=== PATIENT | male | born 1970 | race Caucasian/White ===

== ENCOUNTER 2021-11-10 01:19 | Inpatient (IN) | payer MEDICARE, MEDICAID, SELFPAY ==
[2021-11-10] VITALS (17 sets, daily range): BP systolic 83–103; BP diastolic 49–66; PULSE 83–140; RESP 16–20; TEMP 36.7–38.9; O2SAT 95–98; BMI 19.8
--- NOTE | ~2021-11-10 | XR_ITS ---
EXAMINATION: XR CHEST CLINICAL INFORMATION: Fever COMPARISON: None TECHNIQUE: Frontal view of the chest was obtained. FINDINGS: Lung volumes are symmetric. No focal consolidation is seen. No evidence of pneumothorax, pleural effusion, or pulmonary edema. The cardiomediastinal contour is unremarkable. No acute osseous findings are seen. XR/XR chest 1V IMPRESSION: No acute cardiopulmonary findings.
--- NOTE | ~2021-11-10 | CT_ITS ---
EXAMINATION: CT ABDOMEN AND PELVIS WITH CONTRAST CLINICAL INFORMATION: Diffuse abdominal pain with history of Crohn's disease COMPARISON: None TECHNIQUE: Multidetector volumetric images were obtained from the superior aspect of the liver through the pubic symphysis following administration 85 mL of Omnipaque 350 intravenous contrast. Sagittal and coronal reformatted images were obtained on the technologist's workstation. Oral contrast: No This CT examination was performed using dose optimization techniques as appropriate, variously including the following: *Automated exposure control *Adjustment of mA and/or kV according to patient size (this includes techniques or standardized protocols for targeted exams where dose is matched to indication/reason for exam; i.e. extremities or head) *Use of iterative reconstruction technique DLP: 410 mGy-cm FINDINGS: LUNG BASES: The visualized lung bases are unremarkable. LIVER, GALLBLADDER, AND BILIARY TREE: The liver is normal in size, shape, and attenuation. A small focal region of hypoattenuation adjacent to the falciform ligament could be due to focal fatty infiltration or alterations in hepatic perfusion. No biliary ductal dilatation is present. The gallbladder is unremarkable with no evidence of radiopaque gallstones, gallbladder wall thickening, or obvious pericholecystic inflammatory changes. PANCREAS: There are 2 adjacent calcifications in the region of the pancreatic head, each measuring 2 mm. These lie near the pancreatic duct though do not definitively appear intraductal. The pancreatic duct is mildly dilated to 3-4 mm. SPLEEN: Unremarkable. ADRENAL GLANDS: Unremarkable. KIDNEYS AND URETERS: No hydronephrosis or obstructing calculus bilaterally. Bilateral nephrograms are symmetric. There is a mid right renal calculus measuring 5 mm. Exophytic right renal cyst measures up to approximately 3.8 cm; no follow-up recommended. BLADDER: Mildly distended and grossly unremarkable. GASTROINTESTINAL TRACT: Patient appears to be status post right hemicolectomy. There is a thick-walled appearance of multiple loops of distal small bowel, suspicious for inflammation as sequelae of Crohn's disease given the clinical history. Some of the distal small bowel loops are also fluid-filled, and the possibility of a partial obstruction due to stricturing cannot be entirely excluded. No free air or free fluid is seen. ABDOMINAL WALL: No significant hernia is appreciated. LYMPH NODES: Normal. VASCULAR: Scattered atherosclerotic calcifications are present. PELVIC VISCERA: Unremarkable. OSSEOUS STRUCTURES: Status post left total hip arthroplasty. There is disc space narrowing at L5-S1. CT/CT abdomen pelvis w con IMPRESSION: 1. Thick-walled appearance of multiple distal small bowel loops, suspicious for inflammation as sequelae of Crohn's disease. Some of these distal small bowel loops are distended with fluid, raising the possibility of a partial small bowel obstruction secondary to stricturing. 2. Tiny calcifications in the proximal pancreas, near the pancreatic duct. Pancreatic duct is noted to be mildly dilated. Further assessment could be performed with MRI/MRCP or ERCP. Fleischner guidelines were followed.
--- NOTE | ~2021-11-10 | CT_ITS ---
EXAMINATION: CT ABDOMEN AND PELVIS WITH CONTRAST CLINICAL INFORMATION: Reevaluate Crohn's disease and small bowel obstruction. COMPARISON: Previous CT of the abdomen and pelvis 11/10/2021 TECHNIQUE: Multidetector volumetric images were obtained from the superior aspect of the liver through the pubic symphysis following administration 85 mL of Omnipaque 350 intravenous contrast. Sagittal and coronal reformatted images were obtained on the technologist's workstation. Oral contrast: Yes This CT examination was performed using dose optimization techniques as appropriate, variously including the following: *Automated exposure control *Adjustment of mA and/or kV according to patient size (this includes techniques or standardized protocols for targeted exams where dose is matched to indication/reason for exam; i.e. extremities or head) *Use of iterative reconstruction technique DLP: 532 mGy-cm FINDINGS: LUNG BASES: Small bilateral pleural effusions and bilateral lower lobe atelectasis increased from previous exam. LIVER, GALLBLADDER, AND BILIARY TREE: The liver is normal in size, shape, and attenuation. No focal hepatic lesion or biliary ductal dilatation is present. The gallbladder is contracted. PANCREAS: 2 small calcifications near the head of the pancreas appear unchanged. Pancreas is otherwise unremarkable. SPLEEN: Unremarkable. ADRENAL GLANDS: Unremarkable. KIDNEYS AND URETERS: There is a 4 cm cyst in the lower pole the right kidney. No imaging follow-up is indicated. Kidneys are otherwise unremarkable. The previously identified right renal Central stone is no longer seen. BLADDER: Unremarkable. GASTROINTESTINAL TRACT: There may be postsurgical changes to the right colon. There is a long segment of thick-walled small bowel with stranding of the mesenteric fat and prominent vasa recta suggestive of active inflammatory bowel disease. There is dilatation of the more proximal small bowel suggestive of partial small bowel obstruction. This is similar to 11/10/2021 exam.. There is oral contrast seen in the colon and there is no evidence of complete small bowel obstruction. The appendix is not seen. The stomach is unremarkable. There is a small amount of fluid in the pelvis. ABDOMINAL WALL: No significant hernia is appreciated. LYMPH NODES: Normal. VASCULAR: Unremarkable. PELVIC VISCERA: Unremarkable. OSSEOUS STRUCTURES: There is a left hip replacement. There are degenerative disc disease at L5-S1. CT/CT abdomen pelvis w con IMPRESSION: Long segment of thick-walled distal small bowel with prominent vasa recta and some stranding and fluid in the small bowel mesentery suggestive of active Crohn's disease. There is dilatation of the more proximal small bowel suggestive of mild partial small bowel obstruction. This is similar to 11/10/2021 exam. No evidence of complete obstruction with oral contrast seen in the colon. Small amount of fluid in the pelvis. Right renal cyst. Previously identified central right renal stone no longer seen. Fleischner guidelines were followed.
--- NOTE | ~2021-11-10 | NM_ITS ---
EXAMINATION: NM TC RBC GI BLEEDING CLINICAL INFORMATION: Acute rectal bleeding. COMPARISON: No previous radionuclide bleeding study is available for comparison. CT scan of the abdomen and pelvis dated 11/15/2021 is available for comparison. PROCEDURE: Following the sequential intravenous administration of 2.8 mL stannous pyrophosphate and 25 mCi Tc-99m pertechnetate, sequential static images of the abdomen were obtained using a gamma scintillation camera total observation period of 60 minutes. FINDINGS: There is visualization of abnormal activity beginning at approximately 20 minutes post injection in the right upper quadrant of the abdomen. This is likely in the hepatic flexure of the large bowel and corresponds well to this location on the CT scan dated 11/15/2021. The activity is immediately adjacent to the inferior pole of the right kidney. Some fairly rapid retrograde and antegrade flow is noted with some activity moving inferiorly to the cecal region and antegrade to the transverse colon into the left colon and rectosigmoid colon. It is unlikely that these additional foci represent additional bleeding sites. NM/NM GI bleeding IMPRESSION: Gastrointestinal bleeding is visualized originating in the hepatic flexure of the large bowel as described above.
--- NOTE | ~2021-11-10 | IR_ITS ---
PROCEDURE: IR PERIPHERALLY INSERTED CENTRAL CATHETER (PICC) PLACEMENT REFERRING PROVIDER: Puja Medel PROCEDURAL PERSONNEL: Attending Physician(s): Guy Marshall MD Resident Physician(s): None Advanced Practice Provider(s): None PREPROCEDURE DIAGNOSIS: Crohn's disease POSTPROCEDURE DIAGNOSIS: Same INDICATION: Administration of total parenteral nutrition ADDITIONAL CLINICAL HISTORY: None COMPLICATIONS: No immediate complications. IR/IR cvc insert peripheral IMPRESSION: Insertion of right-sided dual-lumen power-injectable PICC, with tip in the expected location of the cavoatrial junction. PLAN: The catheter may be used immediately. PROCEDURE SUMMARY: - Venous access with ultrasound guidance - PICC insertion with fluoroscopic guidance - Additional procedure(s): None PROCEDURE DETAILS: PREPROCEDURE: Consent: Informed consent for the procedure including risks, benefits and alternatives was obtained and time out was performed prior to the procedure. Preparation (MIPS): The site was prepared and draped using all elements of maximal sterile barrier technique including sterile gloves, sterile gown, cap, mask, large sterile sheet, sterile ultrasound probe cover, hand hygiene and cutaneous antisepsis with 2% chlorhexidine. Medical reason for site preparation exception (MIPS): Not applicable ANESTHESIA/SEDATION: Level of anesthesia/sedation: No sedation Anesthesia/sedation administered by: Not applicable Total intra-service sedation time (minutes): 0 Initially we have been consulted for repositioning of a right R knee midline for a PICC line. While prepping the site, the midline became completely displaced. We then proceeded with new PICC access. ACCESS: Local anesthesia was administered. The vessel was sonographically evaluated and determined to be patent. Real time ultrasound was used to visualize needle entry into the vessel and a permanent image was stored. Vein accessed: Brachial vein Access technique: Micropuncture set with 21 gauge needle Access attempts: 1 The guidewire was removed in its entirety, visually inspected and determined to be intact. CATHETER PLACEMENT: The catheter was trimmed to appropriate length and placed into the vein under fluoroscopic guidance via a peel-away sheath. Catheter tip location was fluoroscopically verified and a permanent image was stored. A sterile dressing was applied. Catheter placed: BioFlo PICC Catheter size (Malian): 6 Catheter intravascular length (cm): 40 Catheter flush: Normal saline Catheter securement technique: Stat-Lock CONTRAST: Contrast agent: None Contrast volume (mL): 0 RADIATION DOSE: Fluoroscopy time (minutes): 2.2 Images: 1 Kerma area product (cGy-m2): 83 ADDITIONAL DETAILS: Additional description of procedure: None Equipment details: None Specimens removed: None Estimated blood loss (mL): Less than 10 Standardized report: [id number] ATTESTATION: Signer name: Guy Marshall I attest that I was present for the entire procedure. I reviewed the stored images and agree with the report as written.
--- NOTE | 2021-11-10 01:42 | ED.ABDPAIN ---
HPI - Abdominal Pain General Chief Complaint: Failure to Thrive Stated Complaint: septic? Time Seen by Provider: 11/10/21 01:40 Source: patient Mode of arrival: EMS Limitations: no limitations History of Present Illness HPI narrative: Patient 51 years old with history of Crohn's disease MRSA infection in the past not taking any medication came here for 2 1/2months of water diarrhea diffuse abdominal pain weakness poor oral intake lost about 30 lb, noticed fever since yesterday with chills , has not seen any physician for some time when EMS arrived to his house patient home situation was unkept looks like he did not get up from a recliner for some time patient has not left his house for last 2 months Related Data Allergies Allergy/AdvReac Type Severity Reaction Status Date / Time NSAIDS (Non-Steroidal Allergy Intermediate DIARRHEA Verified 11/10/21 06:12 Anti-Inflamma [NSAIDS (NON-STEROIDAL ANTI-INFLAMMA] Review of Systems Review of Systems Yes all other systems are reviewed and are negative [facility] Social History Social History Alcohol intake: former Patient Tobacco Use Status: Current everyday Tobacco user Use of substances other than those prescribed or required for medical reasons: No Advance Directives: No Physical Exam ED Vital Signs: Vital Signs - 24 hr 11/10/21 01:37 11/10/21 01:51 11/10/21 02:36 Temperature 101.5 F H Pulse Rate 130 H 132 H 110 H Respiratory Rate 20 20 18 Blood Pressure 90/59 L 90/61 92/56 L Pulse Oximetry 95 95 11/10/21 03:06 11/10/21 04:00 11/10/21 04:28 Temperature 99.2 F Pulse Rate 96 Respiratory Rate 18 Blood Pressure 97/66 Pulse Oximetry 97 96 11/10/21 05:44 Temperature 98.0 F Pulse Rate 90 Respiratory Rate 16 Blood Pressure 91/54 L Pulse Oximetry 95 BMI result Body Mass Index 19.8 Appearance: Alert. Oriented X3. No acute distress. Thin emaciated unkept febrile to touch Eyes: No pallor or icterus ENT: Pharynx normal. Oral Mucosa moist Neck: Normal inspection. Neck supple. CVS: Normal heart rate and rhythm. Pulses normal. Respiratory: No respiratory distress. Equal air entry bilateral, no wheezing/rales/rhonchi Abdomen: Soft and nontender. Bowel sounds are present, no mass palpable, no CVA tenderness Skin: Skin warm and dry. Normal skin color. Normal skin turgor. Small superficial abscess right gluteal area with pus discharge and left chest wall Extremities: No lower extremity edema. No calf tenderness Neuro: Oriented X 3. No motor deficit. MDM - Abdominal Pain MDM Narrative Medical decision making narrative: Patient with Crohn disease with chronic diarrhea weight loss noticed to had temperature of 101.5 degrees on arrival workup showed diffuse colitis/Crohn disease changes with leukocytosis meeting the criteria for sepsis , lactic acid level was normal patient received IV antibiotics and IV fluid 30 cc/kilogram blood pressure improved after IV fluids, will admit patient for further evaluation Lab Data Attestation: I reviewed the patient's lab results. Result diagrams: 11/10/21 01:57 11/10/21 02:44 Labs: Lab Results 11/10/21 11/10/21 11/10/21 Range/Units 01:57 01:57 01:57 WBC 14.6 H (4.8-10.8) X10*3/uL RBC 4.95 (4.60-5.80) X10*6/uL Hgb 13.8 L (14.0-18.0) g/dl Hct 40.4 L (42.0-52.0) % MCV 81.6 (80.0-98.0) fL MCH 27.9 (27.0-33.0) pg MCHC 34.2 (31.0-36.0) g/dl RDW 14.6 (11.0-16.0) % Plt Count 388 (160-400) X10*3/uL MPV 8.7 L (9.4-12.4) fL Immature Gran % (Auto) 1.1 H (0.0-0.4) % Neut % (Auto) 84.6 H (45-73) % Lymph % (Auto) 8.2 L (20-40) % [place] % (Auto) 6.0 (2-11) % Eos % (Auto) 0.0 (0-4) % Baso % (Auto) 0.1 (0-2) % Lymph # (Auto) 1.2 (1.2-4.9) X10*3/uL [place] # (Auto) 0.9 (0.1-1.2) X10*3/uL Eos # (Auto) 0.0 (0.0-0.4) X10*3/uL Baso # (Auto) 0.0 (0.0-0.2) X10*3/uL Abs Immat Gran (auto) 0.16 H (0.00-0.03) X10*3/uL Absolute Neuts (auto) 12.3 H (2.0-8.3) x10*3/uL Absolute Nucleated RBC 0.000 (0.0-0.012) X10*3/uL Nucleated RBC % (auto) 0.0 (0.0-0.2) /100WBC Sodium (135-145) mmol/L Potassium (3.3-5.1) mmol/L Chloride (96-108) mmol/L Carbon Dioxide (22-29) mmol/L Anion Gap (12-20) BUN (9-16) mg/dL Creatinine (0.5-1.4) mg/dL Estim Creat Clear Calc Estimated GFR Random Glucose (60-115) mg/dL Lactic Acid 1.2 (0.5-2.0) mmol/L Calcium (8.4-10.2) mg/dL Total Bilirubin (0.0-1.0) mg/dL AST (5-37) U/L ALT (0-40) U/L Alkaline Phosphatase (39-117) U/L C-Reactive Protein (< or = 0.50) mg/dL Total Protein (6.5-8.0) g/dL Albumin (3.5-5.0) g/dL Urine Color Urine Appearance Urine pH (5.0-8.0) Ur Specific [place] (1.005-1.025) Urine Protein (NEG-TRACE) MG/DL Urine Glucose (UA) (NEG) MG/DL Urine Ketones (NEG) MG/DL Urine Blood (NEG) Urine Nitrite (NEG) Ur Leukocyte Esterase (NEG) Urine RBC (0) /HPF Urine WBC (0-4) /HPF Ur Squamous Epith Cells /LPF Amorphous Sediment /LPF Urine Bacteria /LPF COVID-19 ([facility]) Negative (Negative) COVID-19 Clin Com See Note 11/10/21 11/10/21 Range/Units 02:44 05:58 WBC (4.8-10.8) X10*3/uL RBC (4.60-5.80) X10*6/uL Hgb (14.0-18.0) g/dl Hct (42.0-52.0) % MCV (80.0-98.0) fL MCH (27.0-33.0) pg MCHC (31.0-36.0) g/dl RDW (11.0-16.0) % Plt Count (160-400) X10*3/uL MPV (9.4-12.4) fL Immature Gran % (Auto) (0.0-0.4) % Neut % (Auto) (45-73) % Lymph % (Auto) (20-40) % [place] % (Auto) (2-11) % Eos % (Auto) (0-4) % Baso % (Auto) (0-2) % Lymph # (Auto) (1.2-4.9) X10*3/uL [place] # (Auto) (0.1-1.2) X10*3/uL Eos # (Auto) (0.0-0.4) X10*3/uL Baso # (Auto) (0.0-0.2) X10*3/uL Abs Immat Gran (auto) (0.00-0.03) X10*3/uL Absolute Neuts (auto) (2.0-8.3) x10*3/uL Absolute Nucleated RBC (0.0-0.012) X10*3/uL Nucleated RBC % (auto) (0.0-0.2) /100WBC Sodium 131 L (135-145) mmol/L Potassium 3.7 (3.3-5.1) mmol/L Chloride 100 (96-108) mmol/L Carbon Dioxide 22 (22-29) mmol/L Anion Gap 13 (12-20) BUN 17 H (9-16) mg/dL Creatinine 1.07 (0.5-1.4) mg/dL Estim Creat Clear Calc 65.8 Estimated GFR > 60 Random Glucose 125 H (60-115) mg/dL Lactic Acid (0.5-2.0) mmol/L Calcium 7.6 L (8.4-10.2) mg/dL Total Bilirubin 0.3 (0.0-1.0) mg/dL AST 18 (5-37) U/L ALT 10 (0-40) U/L Alkaline Phosphatase 96 (39-117) U/L C-Reactive Protein 6.11 H (< or = 0.50) mg/dL Total Protein 5.3 L (6.5-8.0) g/dL Albumin 2.3 L (3.5-5.0) g/dL Urine Color YELLOW Urine Appearance CLEAR Urine pH 6.0 (5.0-8.0) Ur Specific [place] <= 1.005 (1.005-1.025) Urine Protein TRACE (NEG-TRACE) MG/DL Urine Glucose (UA) NEG (NEG) MG/DL Urine Ketones NEG (NEG) MG/DL Urine Blood 1+ H (NEG) Urine Nitrite NEG (NEG) Ur Leukocyte Esterase NEG (NEG) Urine RBC 1-4 (0) /HPF Urine WBC 0-2 (0-4) /HPF Ur Squamous Epith Cells TRACE /LPF Amorphous Sediment 1+ /LPF Urine Bacteria TRACE /LPF COVID-19 ([facility]) (Negative) COVID-19 Clin Com Imaging Data CT scan - abdomen: Radiologist's impression: CT/CT abdomen pelvis w con IMPRESSION: 1.? Thick-walled appearance of multiple distal small bowel loops, suspicious for inflammation as sequelae of Crohn's disease. Some of these distal small bowel loops are distended with fluid, raising the possibility of a partial small bowel obstruction secondary to stricturing. 2.? Tiny calcifications in the proximal pancreas, near the pancreatic duct. Pancreatic duct is noted to be mildly dilated. Further assessment could be performed with MRI/MRCP or ERCP. ? Discharge Plan Discharge Clinical Impression: Colitis, Abscess of skin Patient Disposition: Admitted As Inpatient
[2021-11-10 02:09] LABS: MANUAL DIFF FLAG NO
[2021-11-10 02:10] LABS: Basophils Percent Auto 0.1 % (0-2); Hematocrit 40.4 % (42.0-52.0); Hemoglobin 13.8 g/dl (14.0-18.0); Imm Gran Abs Auto 0.16 X10*3/uL (0.00-0.03); Imm Gran Pct Auto 1.1 % (0.0-0.4); Lymphocytes Absolute Auto 1.2 X10*3/uL (1.2-4.9); Lymphocytes Percent Auto 8.2 % (20-40); Mean Corpuscular HGB Conc 34.2 g/dl (31.0-36.0); Mean Corpuscular Hemoglobin 27.9 pg (27.0-33.0); Mean Corpuscular Volume 81.6 fL (80.0-98.0); Mean Platelet Volume 8.7 fL (9.4-12.4); Monocytes Absolute Auto 0.9 X10*3/uL (0.1-1.2); Neutrophils Absolute Auto 12.3 x10*3/uL (2.0-8.3); Neutrophils Percent Auto 84.6 % (45-73); Platelet Count 388 X10*3/uL (160-400); Red Blood Count 4.95 X10*6/uL (4.60-5.80); Red Cell Distribution Width 14.6 % (11.0-16.0); White Blood Count 14.6 X10*3/uL (4.8-10.8)
[2021-11-10 02:14] LABS: Lactic Acid 1.2 mmol/L (0.5-2.0)
[2021-11-10 02:24] LABS: COVID-19 Test Negative (Negative)
[2021-11-10] MEDS: 0.9 % Sodium Chloride 2,000 ML 2000 ML IV (02:35)
[2021-11-10] MEDS: Acetaminophen 325 MG TABLET 975 MG PO (02:35)
[2021-11-10] MEDS: Morphine Sulfate 4 MG/ML CARTRIDGE IVPUSH (02:36)
[2021-11-10] MEDS: ondansetron HCL 4 MG/2 ML VIAL IVPUSH ×2 (02:36→15:06)
[2021-11-10] MEDS: Loperamide HCl 2 MG CAPSULE 4 MG PO (02:37)
[2021-11-10 03:08] LABS: Alanine Aminotransferase 10 U/L (0-40); Albumin Level 2.3 g/dL (3.5-5.0); Alkaline Phosphatase 96 U/L (39-117); Anion Gap 13 (12-20); Aspartate Amino Transferase 18 U/L (5-37); Bilirubin Total 0.3 mg/dL (0.0-1.0); Blood Urea Nitrogen 17 mg/dL (9-16); Calcium 7.6 mg/dL (8.4-10.2); Carbon Dioxide 22 mmol/L (22-29); Chloride 100 mmol/L (96-108); Creatinine Clr Calc Pharmacy 65.8; Estimated Glomerular Filt Rate > 60; Glucose Random 125 mg/dL (60-115); Potassium 3.7 mmol/L (3.3-5.1); Sodium 131 mmol/L (135-145); Total Protein 5.3 g/dL (6.5-8.0)
[2021-11-10] MEDS: Piperacillin Sodium/Tazobactam 3.375 GM in 0.9 % Sodium Chloride 50 ML IV ×4 (03:10→20:09)
[2021-11-10] MEDS: iohexoL 350 MG/ML 100 ML INFUS..BTL 85 ML IV (03:39)
[2021-11-10] MEDS: vancomycin HCL 1,000 MG in 0.9 % Sodium Chloride 250 ML 270 MG IV (04:01)
--- NOTE | 2021-11-10 04:31 | PC.NURSE ---
I assumed care of this pt when he arrived from home via EMS. Stevie presents for evaluation, per EMS, of failure to thrive. Stevie states he has been sick since before molly. He is unable to explain why he waited so long to seek medical treatment. He states that he has abdominal pain 'all the time , severe at times, less severe at other times. +nausea and vomiting, states I can't keep anything down. Whatever I eat or drink comes right up. He believes he has lost 40lbs since july of 2021. He appears pale, thin, frail, dry, and emaciated. He has a small open area to his R buttock - Anwar MD visualized this and expectorated some pus from it, cultured it and sent it to lab. The pt is alert, oriented x 3, makes eye contact with Rn and is verbally appropriate. Repirations spontaneous and non-labored. He has taken PO meds/water in ED without any episodes of vomiting. He arrived with Sinus Tach rate 130's, Temp 101.5. He is TBADM and verbalized an understanding of this.
[2021-11-10] MEDS: 0.9 % Sodium Chloride 1,000 ML 999 ML IV ×2 (06:06→18:44)
[2021-11-10 06:07] LABS: Appearance Urine CLEAR; Color Urine YELLOW; Glucose Urine UA NEG (NEG); Leukocyte Esterase Urine NEG (NEG); Nitrite Urine NEG (NEG); Specific Gravity - Urine <= 1.005 (1.005-1.025); UACC Culture Trigger NO; Urine Blood 1+ (NEG); Urine Ketones NEG (NEG); Urine Protein TRACE MG/DL (NEG-TRACE)
--- NOTE | 2021-11-10 06:10 | PM.IMHP ---
History of Present Illness Date of Service: 11/10/21 Chief Complaint: abdominal pain 51-year-old male with a past medical history of Crohn's disease, tobacco dependence, history of MRSA skin infection presented to the hospital with a chief complaint of abdominal pain. Patient reports that he has been having abdominal pain for the past 2 months; but for the past 1 week the abdominal pain has been worsening. Mentioned that he is also having nausea vomiting and diarrhea. Says he is unable to keep anything down. Abdominal pain is located more so on the left side. Sharp in nature. Also reports he has some blood in his stools; but less than prior episodes of Crohn's flare. Mentions that he follows with financial sales associate at [facility]-has not seen him in 2 years. Also mentioned patient has been seen his PCP in few years. patient also reports that he has the skin wound on his left breast which is healing; there is a 2nd skin wound on his right buttock with pus discharge. Patient reports over the past couple days he has been having fevers. Denies any cough or sputum production. Denies any urinary symptoms. Patient denies any chest pain or palpitations. Review of all other systems is negative except mentioned above ER course: Per ER team patient noted to have right buttock wound with small pus like discharge; abdominal was tender diffusely; no guarding no rigidity; CT abdomen was done which showed severe inflammation and possible partial SBO. Also noted to have mildly dilated pancreatic duct. patient was given empiric antibiotics. Admitted to the hospital for further management PMFSH Pertinent family history: Pancreatic cancer runs in the family Social History Alcohol intake: former Patient Tobacco Use Status: Current everyday Tobacco user Use of substances other than those prescribed or required for medical reasons: No Advance Directives: No Meds Allergies Allergy/AdvReac Type Severity Reaction Status Date / Time NSAIDS (Non-Steroidal Allergy Intermediate DIARRHEA Verified 11/10/21 06:12 Anti-Inflamma [NSAIDS (NON-STEROIDAL ANTI-INFLAMMA] Active Medications: Current Medications Sodium Chloride (Ns) 1,000 mls @ 999 mls/hr IV .Q1H1M ONE Stop: 11/10/21 06:43 Last Admin: 11/10/21 06:06 Dose: 999 mls/hr Documented by: Pharmacy Consult (Consult Rx Vancomycin Dosing) 1 each MISCELLANE DAILY PRN PRN Reason: Consult order Physical Exam Vital Signs and Narrative: Vital Signs: Last Vital Signs Temp 98.0 F 11/10/21 05:44 Pulse 90 11/10/21 05:44 Resp 16 11/10/21 05:44 BP 91/54 L 11/10/21 05:44 Pulse Ox 95 11/10/21 05:44 BMI result Body Mass Index 19.8 Gen: Appears be in no acute distress HEENT: NCAT, Moist mucosa. Pulmonary: Vesicular breath sounds, fair air entry CVS: Normal S1-S2 Abdomen: BS+, Soft, tender diffusely. No guarding no rigidity. Extremities: Warm well perfused Neuro: Alert and awake. Integumentary: Noted to have healing left breast nipple skin wound with mild erythema around; open wound on hence right buttock posteriorly. Dressing in place. Mild surrounding erythema noted. Results Labs CBC and Chem 7: 11/10/21 01:57 11/10/21 02:44 Labs: Laboratory Results - last 24 hr 11/10/21 11/10/21 11/10/21 01:57 01:57 01:57 MCV 81.6 MCH 27.9 MCHC 34.2 RDW 14.6 Plt Count 388 MPV 8.7 L Immature Gran % (Auto) 1.1 H Neut % (Auto) 84.6 H Lymph % (Auto) 8.2 L [place] % (Auto) 6.0 Eos % (Auto) 0.0 Baso % (Auto) 0.1 Lymph # (Auto) 1.2 [place] # (Auto) 0.9 Eos # (Auto) 0.0 Baso # (Auto) 0.0 Abs Immat Gran (auto) 0.16 H Absolute Neuts (auto) 12.3 H Absolute Nucleated RBC 0.000 Nucleated RBC % (auto) 0.0 Anion Gap Estim Creat Clear Calc Estimated GFR Random Glucose Lactic Acid 1.2 Calcium Total Bilirubin AST ALT Alkaline Phosphatase Total Protein Albumin Urine Color Urine Appearance Urine pH Ur Specific [place] Urine Protein Urine Glucose (UA) Urine Ketones Urine Blood Urine Nitrite Ur Leukocyte Esterase COVID-19 ([facility]) Negative COVID-19 Clin Com See Note 11/10/21 11/10/21 02:44 05:58 MCV MCH MCHC RDW Plt Count MPV Immature Gran % (Auto) Neut % (Auto) Lymph % (Auto) [place] % (Auto) Eos % (Auto) Baso % (Auto) Lymph # (Auto) [place] # (Auto) Eos # (Auto) Baso # (Auto) Abs Immat Gran (auto) Absolute Neuts (auto) Absolute Nucleated RBC Nucleated RBC % (auto) Anion Gap 13 Estim Creat Clear Calc 65.8 Estimated GFR > 60 Random Glucose 125 H Lactic Acid Calcium 7.6 L Total Bilirubin 0.3 AST 18 ALT 10 Alkaline Phosphatase 96 Total Protein 5.3 L Albumin 2.3 L Urine Color YELLOW Urine Appearance CLEAR Urine pH 6.0 Ur Specific [place] <= 1.005 Urine Protein TRACE Urine Glucose (UA) NEG Urine Ketones NEG Urine Blood 1+ H Urine Nitrite NEG Ur Leukocyte Esterase NEG COVID-19 ([facility]I) COVID-19 Clin Com Imaging Radiologist's Impressions: Impressions Chest X-Ray 11/10/21 02:30 IMPRESSION: No acute cardiopulmonary findings. Abdomen/Pelvis CT 11/10/21 03:35 IMPRESSION: 1. Thick-walled appearance of multiple distal small bowel loops, suspicious for inflammation as sequelae of Crohn's disease. Some of these distal small bowel loops are distended with fluid, raising the possibility of a partial small bowel obstruction secondary to stricturing. 2. Tiny calcifications in the proximal pancreas, near the pancreatic duct. Pancreatic duct is noted to be mildly dilated. Further assessment could be performed with MRI/MRCP or ERCP. Fleischner guidelines were followed. Assessment and Plan (1) Skin abscess: Status: Acute (2) Crohn's colitis: Status: Acute (3) Pancreatic duct dilated: Status: Acute Plan 51-year-old male with a past medical history of Crohn's disease, tobacco dependence, history of MRSA skin infection presented to the hospital with a chief complaint of abdominal pain/ Nausea/vomiting / diarrhea/fever/ skin wounds. Admitted for following Crohn's Colitis: CT abdomen showed severe inflammation/ possible partial SBO secondary to stricture. Patient was started on empiric antibiotics. Gastroenterology consult for further recommendations. Will await GI input in regards steroids. NPO Gentle IV fluids Pain control. Partial SBO: Patient reports he has been moving Bowels. general surgery consult. Buttock skin wound /ulcer: Patient on IV vancomycin and Zosyn. Id consult. Patient had prior history of MRSA infection. Pancreatic calcifications/mildly dilated pancreatic duct: GI consulted for further recommendations DVT prophylaxis: Lovenox Code status: Full code Quality Stroke Does the patient have a stroke diagnosis?: No VTE Prior VTE?: No VTE Risk Level:: Medical - moderate - high VTE Device Contraindication: Treatment Not Indicated VTE Drug Contraindication: N/A - Med Ordered
[2021-11-10 06:19] LABS: Amorphous Sediment Urine 1+ /LPF; Bacteria Urine TRACE /LPF; Squamous Epithelial Cell Urine TRACE /LPF; WBC Urine 0-2 /HPF (0-4)
[2021-11-10] MEDS: HYDROmorphone HCl 1 MG/ML SYRINGE 0.5 MG IVPUSH ×4 (06:33→21:09)
[2021-11-10 06:38] LABS: C Reactive Protein 6.11 mg/dL (< or = 0.50)
[2021-11-10] MEDS: Dextrose 5 % and 0.45 % NaCl 1,000 ML 50 ML IVCONT (07:27)
[2021-11-10] MEDS: 0.9 % Sodium Chloride Flush 3 ML SYRINGE IVFLUSH (07:28)
--- NOTE | 2021-11-10 07:30 | PC.NURSE ---
pt alert and oriented, skin pwd, respirations even and unlabored, pt reports abd pain at 4/10 in lower/mid and denies nausea at this time
[2021-11-10 07:31] LABS: Erythrocyte Sedimentation Rate 49 MM/HR (0-15)
--- NOTE | 2021-11-10 07:50 | PHA.MEDREC ---
Pharmacy Consult ? Medication Reconciliation Pharmacy has completed the medication reconciliation. Patient has not taken any medications for over one month. Patient also reports using budesonide 3 cap daily however there is no recent fill history for this medications. Patient was also not sure of the dose therefore I omitted for the home list. We do not have budesonide capsules on formulary [employer]
[2021-11-10 07:54] LABS: Lipase 47 U/L (8-78)
[2021-11-10] MEDS: Enoxaparin Sodium 40 MG/0.4 ML SYRINGE SUBCUT (09:19)
--- NOTE | 2021-11-10 09:39 | MHC.CM.PN ---
Met with patient in regards to discharge planning. Patient lives alone, ambulates independently and had no services prior to coming to the hospital. Patient doesn't have a PCP. He sees Dr Garay at [facility] and uses him as a PCP. No services anticipated to be needed at this time because patient is not homebound. Patient denies having a HCP. Not interested in completing one. Patient denies receiving any Covid vaccines. Patient not interested in receiving any vaccines. IMM explained and signed. Patient will arrange transportation when medically stable. Continue to monitor for d/c needs.
--- NOTE | 2021-11-10 11:04 | PC.NURSE ---
pt reports having abd pain 9/10 and having nausea as well, no order for zofran reached out of Aishwarya for something for nausea
[2021-11-10 11:06] LABS: Leukocytes Stool Qualitative MANY: >10/OIF (NEGATIVE)
[2021-11-10 11:41] LABS: CDiff Gene PCR NEGATIVE (Negative)
--- NOTE | 2021-11-10 11:43 | PC.NURSE ---
report given to iron pryor at [facility]
[2021-11-10] MEDS: Lactated Ringers 1,000 ML 125 ML IVCONT (11:45)
--- NOTE | 2021-11-10 11:52 | PC.NURSE ---
Medicated per provider order, vss, BP remains low, pt asking for nausea medication - provider aware, will continue to monitor.
--- NOTE | 2021-11-10 13:55 | P.PNIM_ITS ---
Subjective Subjective Date of Service: 11/10/21 Review of Systems Follow up Crohns flare and buttock wound Pain to left side of abdomen having some nausea Physical Exam Vital Signs: Vital Signs: Last Vital Signs Temp 98.0 F 11/10/21 12:32 Pulse 84 11/10/21 12:32 Resp 16 11/10/21 12:32 BP 92/56 L 11/10/21 13:13 Pulse Ox 98 11/10/21 12:32 BMI result Body Mass Index 19.8 Appearing in no acute distress lung sounds are clear to auscultation heart regular rate rhythm, clear S1, S2 positive bowel sounds, abdomen is soft,, left lower extremity tenderness neuro patient is alert x3, no focal deficits Left nipple dry skin patch from MRSA boil Right buttock small boil , excised Objective Data Active Medications Enoxaparin Sodium (Enoxaparin Sodium 40 Mg/0.4 Ml Syringe) 40 mg SUBCUT Q24H [facility] Last Admin: 11/10/21 09:19 Dose: 40 mg Documented by: SHAE Hydromorphone HCl (Hydromorphone Hcl 1 Mg/Ml Syringe) 0.5 mg IVPUSH Q4H PRN; Protocol PRN Reason: Pain, Severe (Pain Scale 7-10) Last Admin: 11/10/21 11:01 Dose: 0.5 mg Documented by: SHAE Piperacillin Sod/Tazobactam (Sod 3.375 gm/ Sodium Chloride) 50 mls @ 100 mls/hr IV Q6H [facility] Last Infusion: 11/10/21 10:05 Dose: 0 mls/hr Documented by: SHAE Vancomycin HCl 750 mg/ Sodium (Chloride) 265 mls @ 265 mls/hr IV Q12H [facility] Lactated Ringer's (Lr) 1,000 mls @ 125 mls/hr IVCONT .Q8H [facility] Last Admin: 11/10/21 11:45 Dose: 125 mls/hr Documented by: REBECCA Pharmacy Consult (Consult Rx Vancomycin Dosing) 1 each MISCELLANE DAILY PRN PRN Reason: Consult order Sodium Chloride (0.9 % Sodium Chloride Flush 3 Ml Syringe) 3 ml IVFLUSH QSHIFT [facility] Last Admin: 11/10/21 07:28 Dose: 3 ml Documented by: HO.BAILEA Labs CBC & Chem 7: 11/10/21 01:57 11/10/21 02:44 Labs: Laboratory Results - last 24 hr 11/10/21 11/10/21 11/10/21 01:57 01:57 01:57 MCV 81.6 MCH 27.9 MCHC 34.2 RDW 14.6 Plt Count 388 MPV 8.7 L Immature Gran % (Auto) 1.1 H Neut % (Auto) 84.6 H Lymph % (Auto) 8.2 L [place] % (Auto) 6.0 Eos % (Auto) 0.0 Baso % (Auto) 0.1 Lymph # (Auto) 1.2 [place] # (Auto) 0.9 Eos # (Auto) 0.0 Baso # (Auto) 0.0 Abs Immat Gran (auto) 0.16 H Absolute Neuts (auto) 12.3 H Absolute Nucleated RBC 0.000 Nucleated RBC % (auto) 0.0 ESR Anion Gap Estim Creat Clear Calc Estimated GFR Random Glucose Lactic Acid 1.2 Calcium Total Bilirubin AST ALT Alkaline Phosphatase C-Reactive Protein Total Protein Albumin Lipase Urine Color Urine Appearance Urine pH Ur Specific [place] Urine Protein Urine Glucose (UA) Urine Ketones Urine Blood Urine Nitrite Ur Leukocyte Esterase Urine RBC Urine WBC Ur Squamous Epith Cells Amorphous Sediment Urine Bacteria Stool Leukocytes, Qual C. difficile Tox B Gene COVID-19 ([facility]I) Negative COVID-19 Clin Com See Note 11/10/21 11/10/21 11/10/21 01:57 02:44 05:58 MCV MCH MCHC RDW Plt Count MPV Immature Gran % (Auto) Neut % (Auto) Lymph % (Auto) [place] % (Auto) Eos % (Auto) Baso % (Auto) Lymph # (Auto) [place] # (Auto) Eos # (Auto) Baso # (Auto) Abs Immat Gran (auto) Absolute Neuts (auto) Absolute Nucleated RBC Nucleated RBC % (auto) ESR 49 H Anion Gap 13 Estim Creat Clear Calc 65.8 Estimated GFR > 60 Random Glucose 125 H Lactic Acid Calcium 7.6 L Total Bilirubin 0.3 AST 18 ALT 10 Alkaline Phosphatase 96 C-Reactive Protein 6.11 H Total Protein 5.3 L Albumin 2.3 L Lipase Urine Color YELLOW Urine Appearance CLEAR Urine pH 6.0 Ur Specific [place] <= 1.005 Urine Protein TRACE Urine Glucose (UA) NEG Urine Ketones NEG Urine Blood 1+ H Urine Nitrite NEG Ur Leukocyte Esterase NEG Urine RBC 1-4 Urine WBC 0-2 Ur Squamous Epith Cells TRACE Amorphous Sediment 1+ Urine Bacteria TRACE Stool Leukocytes, Qual C. difficile Tox B Gene COVID-19 ([facility]I) COVID-19 Clin Com 11/10/21 11/10/21 11/10/21 07:14 10:23 10:23 MCV MCH MCHC RDW Plt Count MPV Immature Gran % (Auto) Neut % (Auto) Lymph % (Auto) [place] % (Auto) Eos % (Auto) Baso % (Auto) Lymph # (Auto) [place] # (Auto) Eos # (Auto) Baso # (Auto) Abs Immat Gran (auto) Absolute Neuts (auto) Absolute Nucleated RBC Nucleated RBC % (auto) ESR Anion Gap Estim Creat Clear Calc Estimated GFR Random Glucose Lactic Acid Calcium Total Bilirubin AST ALT Alkaline Phosphatase C-Reactive Protein Total Protein Albumin Lipase 47 Urine Color Urine Appearance Urine pH Ur Specific [place] Urine Protein Urine Glucose (UA) Urine Ketones Urine Blood Urine Nitrite Ur Leukocyte Esterase Urine RBC Urine WBC Ur Squamous Epith Cells Amorphous Sediment Urine Bacteria Stool Leukocytes, Qual MANY: >10/OIF C. difficile Tox B Gene NEGATIVE COVID-19 ([facility]) COVID-19 Clin Com Assessment and Plan (1) Crohn's colitis: Status: Acute Plan 51-year-old male with a past medical history of Crohn's disease, tobacco dependence, history of MRSA skin infection presented to the hospital with a chief complaint of abdominal pain/? Nausea/vomiting / diarrhea/fever/ skin wounds.? Admitted for acute crohns flare Patient likely requires 2 midnights in the hospital due to acute Crohn's colitis flare with severe abdominal pain. Acute Crohn's Colitis flare CT abdomen showed severe inflammation/ possible partial SBO secondary to stricture.? Started Zosyn, will discuss with GI if further antibiotic coverage needed Gastroenterology consult? for further recommendations.? Will await GI input in regards steroids. NPO Gentle IV fluids Pain control. Partial SBO Patient reports he has been moving Bowels and passing gas not requiring NGT having some nausea, no vomiting General surgery consult. Buttock skin boil. Hx of MRSA infection Start Vancomycin wound excised and cx collected Follow blood and wound cx Hypotension Likely secondary to Hypovolemia Received 2 liter boluses Continue IV fluids DVT prophylaxis:? Lovenox Code status:? Full code Attending Dr. Garay Patient requires continued hospitalization due to hypovolemia requiring IV fluids and pain requiring IV narcotics Quality Stroke Does the patient have a stroke diagnosis?: No VTE Prior VTE?: No VTE Risk Level:: Medical - moderate - high VTE Device Contraindication: Treatment Not Indicated VTE Drug Contraindication: N/A - Med Ordered
[2021-11-10] MEDS: Albumin Human 25 % 100 ML IV ×2 (15:12→15:50)
--- NOTE | 2021-11-10 15:48 | PM.EVENT ---
Event Note Date of Service: 11/10/21 Event Note: GI consult dictated Longstanding hx crohns small and lucina intestine previous rx with mesalamine, biologics and azathioprine per pt overdue for f/u with primary GI Agree with steroids check stool tests advance diet as tolerates
--- NOTE | 2021-11-10 15:53 | P.EN_ITS ---
Event Note Date of Service: 11/10/21
--- NOTE | 2021-11-10 15:53 | PM.EVENT ---
Event Note Date of Service: 11/10/21
[2021-11-10] MEDS: vancomycin HCL 750 MG in 0.9 % Sodium Chloride 250 ML 265 MG IV (17:22)
--- NOTE | 2021-11-10 18:40 | PC.NURSE ---
Pt with bp 87/49 and oral temp of 102.1. Aishwarya Loya APRN made aware. verbal orders for 650tylenol po Q4hr a needed for fever and 1L NS bolus. orders placed by this RN.
[2021-11-10] MEDS: Acetaminophen 325 MG TABLET 650 MG PO (18:47)
[2021-11-10] MEDS: oxyCODONE HCl Immed Release 5 MG TABLET PO (20:09)
[2021-11-10] MEDS: 0.9 % Sodium Chloride 1,000 ML 100 ML IVCONT (20:10)
[2021-11-10 20:14] LABS: Lactic Acid 1.9 mmol/L (0.5-2.0)
--- NOTE | 2021-11-10 23:47 | P.CNID_ITS ---
History of Present Illness Data of Consult Service Date: 11/10/21 Primary Care Provider: Shad Physician HPI Reason for consult: weakness He presnts with weaknes diarrhea he has had no UTI PMFSH Family History Family history: reviewed and not pertinent Social History Social History Alcohol intake: former Patient Tobacco Use Status: Current everyday Tobacco user Use of substances other than those prescribed or required for medical reasons: No Advance Directives: No service: No Current occupational status: disabled Meds Allergies Allergy/AdvReac Type Severity Reaction Status Date / Time NSAIDS (Non-Steroidal Allergy Intermediate DIARRHEA Verified 11/10/21 06:12 Anti-Inflamma [NSAIDS (NON-STEROIDAL ANTI-INFLAMMA] Active Medications: Current Medications Acetaminophen (Acetaminophen 325 Mg Tablet) 650 mg PO Q4H PRN PRN Reason: Fever Last Admin: 11/10/21 18:47 Dose: 650 mg Documented by: Enoxaparin Sodium (Enoxaparin Sodium 40 Mg/0.4 Ml Syringe) 40 mg SUBCUT Q24H [facility] Last Admin: 11/10/21 09:19 Dose: 40 mg Documented by: Hydromorphone HCl (Hydromorphone Hcl 1 Mg/Ml Syringe) 0.5 mg IVPUSH Q6H PRN; Protocol PRN Reason: Pain, Severe (Pain Scale 7-10) Last Admin: 11/10/21 21:09 Dose: 0.5 mg Documented by: Piperacillin Sod/Tazobactam (Sod 3.375 gm/ Sodium Chloride) 50 mls @ 100 mls/hr IV Q6H [facility] Last Admin: 11/10/21 20:09 Dose: 100 mls/hr Documented by: Vancomycin HCl 750 mg/ Sodium (Chloride) 265 mls @ 265 mls/hr IV Q12H [facility] Last Infusion: 11/10/21 18:36 Dose: Infused Documented by: Lactated Ringer's (Lr) 1,000 mls @ 125 mls/hr IVCONT .Q8H [facility] Last Admin: 11/10/21 11:45 Dose: 125 mls/hr Documented by: Sodium Chloride (Ns) 1,000 mls @ 100 mls/hr IVCONT .Q10H [facility] Last Admin: 11/10/21 20:10 Dose: 100 mls/hr Documented by: Ondansetron HCl (Ondansetron Hcl 4 Mg/2 Ml Vial) 4 mg IVPUSH Q8H PRN PRN Reason: Nausea and Vomiting Last Admin: 11/10/21 15:06 Dose: 4 mg Documented by: Oxycodone HCl (Oxycodone Hcl Immed Release 5 Mg Tablet) 5 mg PO Q4H PRN PRN Reason: Pain, Mild (Pain Scale 1-3) Last Admin: 11/10/21 20:09 Dose: 5 mg Documented by: Pharmacy Consult (Consult Rx Vancomycin Dosing) 1 each MISCELLANE DAILY PRN PRN Reason: Consult order Sodium Chloride (0.9 % Sodium Chloride Flush 3 Ml Syringe) 3 ml IVFLUSH QSHIFT [facility] Last Admin: 11/10/21 15:39 Dose: Not Given Documented by: Home Medications Medication Instructions Recorded Confirmed Last Taken Type diphenoxylate-atropine 2.5 1 tab PO QID PRN 11/10/21 11/10/21 10/13/21 History mg-0.025 mg tablet promethazine 25 mg tablet 1 tab PO Q6H 11/10/21 11/10/21 10/13/21 History Physical Exam Vital Signs: Vital Signs: Last Vital Signs Temp 100.5 F H 11/10/21 20:08 Pulse 97 11/10/21 20:08 Resp 16 11/10/21 20:08 BP 90/51 L 11/10/21 20:08 Pulse Ox 96 11/10/21 20:08 BMI result Body Mass Index 19.8 Const: General: cooperative Orientation/consciousness: oriented to person and patient oriented x3 GI: Other: Need to followup Neuro: General: oriented to person and patient oriented x3 Results Labs CBC & Chem 7: 11/11/21 05:33 11/11/21 05:33 Labs: Short CBC 11/10/21 Range/Units 01:57 WBC 14.6 H (4.8-10.8) X10*3/uL Hgb 13.8 L (14.0-18.0) g/dl Hct 40.4 L (42.0-52.0) % Plt Count 388 (160-400) X10*3/uL BMP 11/10/21 02:44 Sodium 131 L Potassium 3.7 Chloride 100 Carbon Dioxide 22 BUN 17 H Creatinine 1.07 Calcium 7.6 L Liver Function 11/10/21 Range/Units 02:44 Total Bilirubin 0.3 (0.0-1.0) mg/dL AST 18 (5-37) U/L ALT 10 (0-40) U/L Alkaline Phosphatase 96 (39-117) U/L Albumin 2.3 L (3.5-5.0) g/dL Urine 11/10/21 Range/Units 05:58 Urine Color YELLOW Urine Appearance CLEAR Urine pH 6.0 (5.0-8.0) Ur Specific Cornelius <= 1.005 (1.005-1.025) Urine Protein TRACE (NEG-TRACE) MG/DL Urine Glucose (UA) NEG (NEG) MG/DL Microbiology Microbiology Results: Microbiology 11/10/21 01:58 Abscess Ischiorectal Gram Stain - Final Assessment and Plan (1) Skin abscess: Status: Acute (2) Crohn's colitis: Status: Acute He is doing slipper Davis pup
[2021-11-11] VITALS (7 sets, daily range): BP systolic 84–106; BP diastolic 48–69; PULSE 63–109; RESP 14–18; TEMP 36.3–38.3; O2SAT 95–99
[2021-11-11] MEDS: Acetaminophen 325 MG TABLET 650 MG PO ×2 (01:27→17:21)
--- NOTE | 2021-11-11 02:20 | CONS_ITS ---
DATE OF SERVICE: 11/10/2021 REFERRING PHYSICIAN: Song Chavez MD REASON FOR CONSULTATION: Crohn disease. HISTORY OF PRESENT ILLNESS: The patient is a pleasant male, admitted to the hospital because of abdominal pain in the setting of a longstanding history of Crohn disease involving the large and small intestine. The patient states a history of Crohn disease diagnosed at age 12 that has required treatment with various modalities including mesalamine, azathioprine, and biologic agents as well as budesonide. He was followed by provider in [place], but has not been seen in the office for a long time and has been off all medications for several months. He was admitted to the hospital after presenting to the emergency room complaining of worsening abdominal pain gradually over 2 months, but worse for the 1 week prior to admission with associated nausea, vomiting, and diarrhea with occasional small amounts of hematochezia and clots. There has been associated generalized abdominal pain, but worse on the left side and associated fevers and chills. He was evaluated in the emergency department with laboratory studies showing an elevated white count of 14.6, and chemistry showing mild hyponatremia, an elevated C-reactive protein to 6.11, and an albumin low at 2.3. He has been treated with antibiotics as he also did have some superficial skin infections and steroids for his Crohn's exacerbation. PAST MEDICAL HISTORY: 1. Crohn disease as above. He reports undergoing ileocolectomy in the remote past and has been off all medications for some time as above. 2. MRSA skin infection. 3. Colonoscopy approximately 3 years ago. 4. Current tobacco use. CURRENT MEDICATIONS: His current medication list is reviewed in the chart. ALLERGIES: NSAIDS. FAMILY HISTORY: This is reviewed with the patient and is positive for cancer. SOCIAL HISTORY: He does smoke. He denies substance abuse. REVIEW OF SYSTEMS: SKIN: No pruritus. HEENT: Negative. CARDIOPULMONARY: He denies shortness of breath or chest pain. GASTROINTESTINAL: As above. He believes he has had about 30+ pound weight loss over the past several months. GENITOURINARY: Negative. NEUROPSYCHIATRIC: Negative. PHYSICAL EXAMINATION: GENERAL: Shows a cachectic male, lying in bed. VITAL SIGNS: Reviewed in the electronic medical record and are stable. SKIN: Anicteric. HEENT: Shows no scleral icterus. NECK: Without lymphadenopathy or thyromegaly. LUNGS: Clear. HEART: Shows regular rate and rhythm. S1, S2. No murmur. ABDOMEN: Shows some mild diffuse tenderness to palpation, but no guarding or rebound. Bowel sounds are present. No organomegaly is noted. EXTREMITIES: Without edema. LABORATORY DATA: Shows a low white blood cell count of 14.6 with 84.6% neutrophils. CT scanning is reviewed. This was obtained in the emergency department and is interpreted as showing changes consistent with small bowel Crohn disease with a question of possible small bowel obstruction that is partial secondary to stricturing. Incidentally noted was calcifications in the pancreatic head with mild pancreatic dilation. The patient denies any prior history of pancreatic issues and had a normal lipase on admission. IMPRESSION: Crohn disease. I agree with treating him with steroids as you are doing. The patient has not been following up with his GI provider, and I recommended that he arrange followup after discharge for consideration of restarting a biologic agent. He is also 3 years out from his last colonoscopy and will likely need a followup colonoscopy. He should discontinue tobacco use as well. His diet can be gradually advanced as he improves. We will start clear liquids now and his mild pancreatic ductal dilation will need followup as an outpatient. Thanks for asking me to see him. I will follow him in the hospital with you. MD JACOB Abrams/ANGEL / [id number]
[2021-11-11] MEDS: HYDROmorphone HCl 1 MG/ML SYRINGE 0.5 MG IVPUSH ×3 (03:04→20:24)
[2021-11-11] MEDS: Piperacillin Sodium/Tazobactam 3.375 GM in 0.9 % Sodium Chloride 50 ML IV ×2 (03:04→09:40)
[2021-11-11] MEDS: vancomycin HCL 750 MG in 0.9 % Sodium Chloride 250 ML 265 MG IV (04:34)
[2021-11-11 06:09] LABS: MANUAL DIFF FLAG NO
[2021-11-11 06:21] LABS: Basophils Percent Auto 0.1 % (0-2); Hematocrit 29.2 % (42.0-52.0); Hemoglobin 9.7 g/dl (14.0-18.0); Imm Gran Abs Auto 0.16 X10*3/uL (0.00-0.03); Imm Gran Pct Auto 2.4 % (0.0-0.4); Lymphocytes Absolute Auto 1.3 X10*3/uL (1.2-4.9); Lymphocytes Percent Auto 20.1 % (20-40); Mean Corpuscular HGB Conc 33.2 g/dl (31.0-36.0); Mean Corpuscular Hemoglobin 27.7 pg (27.0-33.0); Mean Corpuscular Volume 83.4 fL (80.0-98.0); Monocytes Absolute Auto 0.3 X10*3/uL (0.1-1.2); Monocytes Percent Auto 4.6 % (2-11); Neutrophils Absolute Auto 4.9 x10*3/uL (2.0-8.3); Neutrophils Percent Auto 72.8 % (45-73); Platelet Count 292 X10*3/uL (160-400); Red Cell Distribution Width 15.1 % (11.0-16.0)
[2021-11-11 06:24] LABS: White Blood Count 6.7 X10*3/uL (4.8-10.8)
[2021-11-11 06:36] LABS: Anion Gap 8 (12-20); Blood Urea Nitrogen 9 mg/dL (9-16); Calcium 7.2 mg/dL (8.4-10.2); Carbon Dioxide 20 mmol/L (22-29); Chloride 108 mmol/L (96-108); Creatinine Clr Calc Pharmacy 86.9; Estimated Glomerular Filt Rate > 60; Glucose Random 104 mg/dL (60-115); Sodium 133 mmol/L (135-145)
[2021-11-11 06:48] LABS: Erythrocyte Sedimentation Rate 19 MM/HR (0-15)
[2021-11-11 08:36] LABS: Magnesium 1.5 mg/dL (1.6-2.6)
[2021-11-11] MEDS: Enoxaparin Sodium 40 MG/0.4 ML SYRINGE SUBCUT (09:40)
[2021-11-11] MEDS: Potassium Chloride Packet 20 MEQ PACKET 40 MEQ PO ×2 (09:40→20:23)
[2021-11-11] MEDS: Hydrocortisone Sod Succ/PF 100 MG VIAL IVPUSH ×2 (09:40→17:21)
[2021-11-11] MEDS: Lactated Ringers 1,000 ML 125 ML IVCONT ×2 (09:41→20:24)
[2021-11-11 10:32] LABS: Leukocytes Stool Qualitative NEGATIVE (NEGATIVE)
--- NOTE | 2021-11-11 10:35 | P.PNIM_ITS ---
Subjective Subjective Date of Service: 11/11/21 Interval History: seen and examined this morning reporting ongoing abdominal pain, predominately left side continues to have several episodes of diarrhea daily no nausea or vomiting Review of Systems Follow up Crohns flare and buttock wound Pain to left side of abdomen having some nausea Review of Systems: Yes all other systems are reviewed and are negative Constitutional Constitutional: Denies chills and Reports fever(s) ENT Ears, Nose, Mouth, and Throat: Denies dizziness Cardiovascular Cardiovascular: Denies chest pain and Denies dyspnea Respiratory Respiratory: Denies cough and Denies dyspnea Gastrointestinal Gastrointestinal: Reports abdominal pain, Reports diarrhea, Denies nausea and Denies vomiting Neurologic Neurologic: Denies dizziness Physical Exam Vital Signs: Vital Signs: Last Vital Signs Temp 100.5 F H 11/11/21 05:09 Pulse 86 11/11/21 08:52 Resp 16 11/11/21 08:52 BP 92/66 11/11/21 08:52 Pulse Ox 96 11/11/21 08:52 BMI result Body Mass Index 19.8 Const: Other: appears uncomfortable General: alert and awake Nutritional Appearance: thin Orientation/consciousness: oriented to person and patient oriented x3 Resp: Effort & Inspection: normal respiratory effort and able to speak in complete sentences Cardio: Rate: regular rate Heart sounds: S1 normal heart sound present and S2 normal heart sound present GI: Other: would not allow deep palpation, but had some left sided tenderness Inspection: Yes distended Palpation (GI): Soft to palpation and Tenderness to palpation present (GI) Neuro: General: oriented to person and patient oriented x3 Extrem: Other: no leg edema Objective Data Active Medications Acetaminophen (Acetaminophen 325 Mg Tablet) 650 mg PO Q4H PRN PRN Reason: Fever Last Admin: 11/11/21 01:27 Dose: 650 mg Documented by: REX Enoxaparin Sodium (Enoxaparin Sodium 40 Mg/0.4 Ml Syringe) 40 mg SUBCUT Q24H [facility] Last Admin: 11/11/21 09:40 Dose: 40 mg Documented by: EDMUNDO Hydrocortisone Sodium Succinate (Hydrocortisone Sod Succ/Pf 100 Mg Vial) 100 mg IVPUSH Q8H [facility] Last Admin: 11/11/21 09:40 Dose: 100 mg Documented by: EDMUNDO Hydromorphone HCl (Hydromorphone Hcl 1 Mg/Ml Syringe) 0.5 mg IVPUSH Q6H PRN; Protocol PRN Reason: Pain, Severe (Pain Scale 7-10) Last Admin: 11/11/21 03:04 Dose: 0.5 mg Documented by: REX Piperacillin Sod/Tazobactam (Sod 3.375 gm/ Sodium Chloride) 50 mls @ 100 mls/hr IV Q6H [facility] Last Admin: 11/11/21 09:40 Dose: 100 mls/hr Documented by: EDMUNDO Vancomycin HCl 750 mg/ Sodium (Chloride) 265 mls @ 265 mls/hr IV Q12H [facility] Last Infusion: 11/11/21 07:38 Dose: 0 mls/hr Documented by: EDMUNDO Lactated Ringer's (Lr) 1,000 mls @ 125 mls/hr IVCONT .Q8H [facility] Last Admin: 11/11/21 09:41 Dose: 125 mls/hr Documented by: EDMUNDO Albumin Human (Kedbumin 25 %) 100 mls @ 100 mls/hr IV Q1H [facility] Stop: 11/11/21 12:14 Nicotine Polacrilex (Nicotine Polacrilex 2 Mg Gum) 2 mg BUCCAL Q2H PRN PRN Reason: Nicotine Cravings Ondansetron HCl (Ondansetron Hcl 4 Mg/2 Ml Vial) 4 mg IVPUSH Q8H PRN PRN Reason: Nausea and Vomiting Last Admin: 11/10/21 15:06 Dose: 4 mg Documented by: ZARINA Oxycodone HCl (Oxycodone Hcl Immed Release 5 Mg Tablet) 5 mg PO Q4H PRN PRN Reason: Pain, Mild (Pain Scale 1-3) Last Admin: 11/10/21 20:09 Dose: 5 mg Documented by: REX Pharmacy Consult (Consult Rx Vancomycin Dosing) 1 each MISCELLANE DAILY PRN PRN Reason: Consult order Potassium Chloride (Potassium Chloride Packet 20 Meq Packet) 40 meq PO BID [facility] Stop: 11/11/21 21:01 Last Admin: 11/11/21 09:40 Dose: 40 meq Documented by: EDMUNDO Sodium Chloride (0.9 % Sodium Chloride Flush 3 Ml Syringe) 3 ml IVFLUSH QSHIFT [facility] Last Admin: 11/11/21 08:54 Dose: Not Given Documented by: EDMUNDO Non-Admin Reason: IV Running Labs CBC & Chem 7: 11/11/21 05:33 11/11/21 05:33 Labs: Laboratory Results - last 24 hr 11/10/21 11/10/21 11/10/21 10:23 10:23 19:29 MCV MCH MCHC RDW Plt Count MPV Immature Gran % (Auto) Neut % (Auto) Lymph % (Auto) [place] % (Auto) Eos % (Auto) Baso % (Auto) Lymph # (Auto) [place] # (Auto) Eos # (Auto) Baso # (Auto) Abs Immat Gran (auto) Absolute Neuts (auto) Absolute Nucleated RBC Nucleated RBC % (auto) ESR Anion Gap Estim Creat Clear Calc Estimated GFR Random Glucose Lactic Acid 1.9 Calcium Magnesium Stool Leukocytes, Qual MANY: >10/OIF C. difficile Tox B Gene NEGATIVE 11/11/21 11/11/21 11/11/21 05:33 05:33 05:33 MCV 83.4 MCH 27.7 MCHC 33.2 RDW 15.1 Plt Count 292 MPV 9.0 L Immature Gran % (Auto) 2.4 H Neut % (Auto) 72.8 Lymph % (Auto) 20.1 [place] % (Auto) 4.6 Eos % (Auto) 0.0 Baso % (Auto) 0.1 Lymph # (Auto) 1.3 [place] # (Auto) 0.3 Eos # (Auto) 0.0 Baso # (Auto) 0.0 Abs Immat Gran (auto) 0.16 H Absolute Neuts (auto) 4.9 Absolute Nucleated RBC 0.000 Nucleated RBC % (auto) 0.0 ESR 19 H Anion Gap 8 L Estim Creat Clear Calc 86.9 Estimated GFR > 60 Random Glucose 104 Lactic Acid Calcium 7.2 L Magnesium 1.5 L Stool Leukocytes, Qual C. difficile Tox B Gene 11/11/21 11/11/21 06:08 09:10 MCV MCH MCHC RDW Plt Count MPV Immature Gran % (Auto) Neut % (Auto) Lymph % (Auto) [place] % (Auto) Eos % (Auto) Baso % (Auto) Lymph # (Auto) [place] # (Auto) Eos # (Auto) Baso # (Auto) Abs Immat Gran (auto) Absolute Neuts (auto) Absolute Nucleated RBC Nucleated RBC % (auto) ESR Anion Gap Estim Creat Clear Calc Estimated GFR Random Glucose Lactic Acid 1.0 Calcium Magnesium Stool Leukocytes, Qual NEGATIVE C. difficile Tox B Gene Microbiology Microbiology Results: Microbiology 11/10/21 01:58 Gram Stain - Final Abscess Ischiorectal Routine Culture - Preliminary 11/10/21 01:58 Blood Culture - Preliminary Blood - Venous No growth after 24 hours. 11/10/21 01:58 Blood Culture - Preliminary Blood - Venous No growth after 24 hours. Assessment and Plan (1) Crohn's colitis: Status: Acute (2) Skin abscess: Status: Acute Plan 51-year-old male with a past medical history of Crohn's disease, tobacco dependence, history of MRSA skin infection presented to the hospital with a chief complaint of abdominal pain/? Nausea/vomiting / diarrhea/fever/ skin wounds.? Admitted for acute crohns flare Patient likely requires 2 midnights in the hospital due to acute Crohn's colitis flare with severe abdominal pain. Sepsis secondary to right to colitis vs right buttock abscess continue to have fever, borderline blood pressure continue IV antibiotics seen by ID, rec continue IV vancomycin, d/c zosyn Acute Crohn's Colitis flare CT abdomen showed severe inflammation/ possible partial SBO secondary to stricture seen by GI, rec IV steroids NPO Gentle IV fluids Pain control cdif negative, stool wbc negative, stool calprotectin pending Partial SBO Patient reports he has been moving Bowels and passing gas not requiring NGT having some nausea, no vomiting General surgery consult pending Normocytic anemia no evidence of blood loss likely dilutional follow H/H stool occult pending Hypokalemia/hypomagnesemia likely secondary to GI losses replace and follow Right Buttock abscess Hx of MRSA infection Start Vancomycin draining of admission, wound cx collected Follow blood and wound cx Hypotension Likely secondary to Hypovolemia from ongoing diarrhea not septic shock . asymptomatic albumin ordered Continue IV fluids DVT prophylaxis:? Lovenox Code status:? Full code Attending Dr. Garay Patient requires continued hospitalization due to hypovolemia requiring IV fluids and pain requiring IV narcotics Quality Stroke Does the patient have a stroke diagnosis?: No VTE Prior VTE?: No VTE Risk Level:: Medical - moderate - high VTE Device Contraindication: Treatment Not Indicated VTE Drug Contraindication: N/A - Med Ordered
--- NOTE | 2021-11-11 12:05 | W.PM.IDCN ---
History of Present Illness Data of Consult Service Date: 11/10/21 Requesting physician: Aishwarya Loya Primary Care Provider: Adam DIGGS Reason for consult: boils chest wall and right buttock,abdominal pain He present to hospitial with abdominal discomfort for two months, worsening last few days He has Crohns and hasnt received treatment lately. CT scan shows small bowel obstruction due to stricture. His WBC is 14.6 He incidentally notes reddened area with purulence right buttock and leftchest wall. He has h/o MRSA. Review of Systems Review of Systems: Yes all other systems are reviewed and are negative [facility] Past Medical History Medical History (Updated 11/19/21 @ 18:45 by Hunter Barrera MD) Crohn's disease Fever Family History Family history: reviewed and not pertinent Social History Social History Household Members: Significant Other Housing: Apartment Do you presently have visiting nurse or other home services: No Alcohol intake: former Patient Tobacco Use Status: Current everyday Tobacco user Tobacco use type: Cigarette Cigarette Packs Per Day: 0.5 Cigarettes Per Day: 10.0 e-Cigarette/Vaping Use: Currently Using service: No Current occupational status: disabled Meds Allergies Allergy/AdvReac Type Severity Reaction Status Date / Time NSAIDS (Non-Steroidal Allergy Intermediate DIARRHEA Verified 11/10/21 06:12 Anti-Inflamma [NSAIDS (NON-STEROIDAL ANTI-INFLAMMA] Active Medications: Current Medications Acetaminophen (Acetaminophen 325 Mg Tablet) 650 mg PO Q4H PRN PRN Reason: Fever Last Admin: 11/11/21 01:27 Dose: 650 mg Documented by: Enoxaparin Sodium (Enoxaparin Sodium 40 Mg/0.4 Ml Syringe) 40 mg SUBCUT Q24H [facility] Last Admin: 11/11/21 09:40 Dose: 40 mg Documented by: Hydrocortisone Sodium Succinate (Hydrocortisone Sod Succ/Pf 100 Mg Vial) 100 mg IVPUSH Q8H [facility] Last Admin: 11/11/21 09:40 Dose: 100 mg Documented by: Hydromorphone HCl (Hydromorphone Hcl 1 Mg/Ml Syringe) 0.5 mg IVPUSH Q6H PRN; Protocol PRN Reason: Pain, Severe (Pain Scale 7-10) Last Admin: 11/11/21 03:04 Dose: 0.5 mg Documented by: Lactated Ringer's (Lr) 1,000 mls @ 125 mls/hr IVCONT .Q8H [facility] Last Admin: 11/11/21 09:41 Dose: 125 mls/hr Documented by: Albumin Human (Kedbumin 25 %) 100 mls @ 100 mls/hr IV Q1H [facility] Stop: 11/11/21 12:14 Nicotine Polacrilex (Nicotine Polacrilex 2 Mg Gum) 2 mg BUCCAL Q2H PRN PRN Reason: Nicotine Cravings Ondansetron HCl (Ondansetron Hcl 4 Mg/2 Ml Vial) 4 mg IVPUSH Q8H PRN PRN Reason: Nausea and Vomiting Last Admin: 11/10/21 15:06 Dose: 4 mg Documented by: Oxycodone HCl (Oxycodone Hcl Immed Release 5 Mg Tablet) 5 mg PO Q4H PRN PRN Reason: Pain, Mild (Pain Scale 1-3) Last Admin: 11/10/21 20:09 Dose: 5 mg Documented by: Pharmacy Consult (Consult Rx Vancomycin Dosing) 1 each MISCELLANE DAILY PRN PRN Reason: Consult order Potassium Chloride (Potassium Chloride Packet 20 Meq Packet) 40 meq PO BID [facility] Stop: 11/11/21 21:01 Last Admin: 11/11/21 09:40 Dose: 40 meq Documented by: Sodium Chloride (0.9 % Sodium Chloride Flush 3 Ml Syringe) 3 ml IVFLUSH QSHIFT [facility] Last Admin: 11/11/21 08:54 Dose: Not Given Documented by: Physical Exam Vital Signs: Vital Signs: Last Vital Signs Temp 100.5 F H 11/11/21 05:09 Pulse 86 11/11/21 08:52 Resp 16 11/11/21 08:52 BP 92/66 11/11/21 08:52 Pulse Ox 96 11/11/21 08:52 BMI result Body Mass Index 19.8 Const: General: cooperative HENMT: Head: Yes normal to inspection Mouth: Normal oral and palatal mucosa present Resp: Effort & Inspection: normal respiratory effort Cardio: Rate: regular rate Rhythm: regular rhythm GI: Palpation (GI): Soft to palpation and Tenderness to palpation present (GI) (mild discomfort epigastric) Skin: Other: scaly healing boil area left chest right buttock area mild purulent lesion Results Labs CBC & Chem 7: 11/19/21 19:01 11/19/21 19:01 Labs: Short CBC 11/11/21 Range/Units 05:33 WBC 6.7 (4.8-10.8) X10*3/uL Hgb 9.7 L D (14.0-18.0) g/dl Hct 29.2 L D (42.0-52.0) % Plt Count 292 (160-400) X10*3/uL BMP 11/11/21 05:33 Sodium 133 L Potassium 3.0 L Chloride 108 Carbon Dioxide 20 L BUN 9 Creatinine 0.81 Calcium 7.2 L Microbiology Microbiology Results: Microbiology 11/10/21 10:23 Stool Stool Culture - Preliminary Culture in progress. 11/10/21 01:58 Abscess Ischiorectal Gram Stain - Final 11/10/21 01:58 Abscess Ischiorectal Routine Culture - Preliminary 11/10/21 01:58 Blood - Venous Blood Culture - Preliminary No growth after 24 hours. 11/10/21 01:58 Blood - Venous Blood Culture - Preliminary No growth after 24 hours. Assessment and Plan (1) Colitis: Status: Acute He is receiving steroids per Dr Palm (2) Abscess of skin: Status: Acute He has MRSA. He has area looks chest wall healing. Buttock area has some focal activity (3) Fever: Status: Acute Fever likely due to bowel/Crohns///?stricture rather than skin lesions but if buttock lesion not resolving would check CT scan of area Plan Would continue Vancomycin until healing buttock area especially since has some purulence and po absorption may be reduced with GI issues
[2021-11-11] MEDS: Nicotine Polacrilex 2 MG GUM BUCCAL ×2 (12:27→16:00)
--- NOTE | 2021-11-11 12:37 | P.CONGS_ITS ---
History of Present Illness Consult details Consult date: 11/11/21 Reason for consult: abdominal pain Requesting physician: Puja Medel Narrative: 51-year-old male patient with history of Crohn's disease presenting to the emergency department with complaints of abdominal pain which is increased over the past week. Pain is associated with nausea, vomiting, diarrhea, and weight loss. He also reports abdominal pain related to gallstones in the right upper quadrant. His pain is sharp and persistent. Workup with CT of the abdomen and pelvis revealed thick-walled appearance of multiple distal small bowel loops suspicious for inflammation as sequela of Crohn's disease. Some of the distal small bowel loops are distended with fluid raising the possibility of a partial small-bowel obstruction secondary to stricturing. Pancreatic duct is noted to be mildly dilated. Patient also reports discharge from the right perianal skin. He reports a prior history of MRSA skin infections involving the buttock, nose, and left chest this lateral to the nipple. The lesion on the buttock occasionally drains currently is not painful. He feels that the lesion in the left chest is increasing in size. Review of Systems Review of Systems: Yes all other systems are reviewed and are negative Gastrointestinal: Gastrointestinal: Reports abdominal pain, Reports GI cramping, Reports diarrhea, Reports nausea and Reports vomiting Integumentary/Breasts: Skin/Breast: Reports as per HPI and Reports furuncle Hematologic/Lymphatic: Hematologic/Lymphatic: Denies lymphadenopathy PMFSH Past Medical History Medical History Fever Family History Family history: reviewed and not pertinent Social History Social History Alcohol intake: former Patient Tobacco Use Status: Current everyday Tobacco user Use of substances other than those prescribed or required for medical reasons: No Advance Directives: No service: No Current occupational status: disabled Meds Allergies Allergy/AdvReac Type Severity Reaction Status Date / Time NSAIDS (Non-Steroidal Allergy Intermediate DIARRHEA Verified 11/10/21 06:12 Anti-Inflamma [NSAIDS (NON-STEROIDAL ANTI-INFLAMMA] Active Medications: Current Medications Acetaminophen (Acetaminophen 325 Mg Tablet) 650 mg PO Q4H PRN PRN Reason: Fever Last Admin: 11/11/21 01:27 Dose: 650 mg Documented by: Enoxaparin Sodium (Enoxaparin Sodium 40 Mg/0.4 Ml Syringe) 40 mg SUBCUT Q24H [facility] Last Admin: 11/11/21 09:40 Dose: 40 mg Documented by: Hydrocortisone Sodium Succinate (Hydrocortisone Sod Succ/Pf 100 Mg Vial) 100 mg IVPUSH Q8H [facility] Last Admin: 11/11/21 09:40 Dose: 100 mg Documented by: Hydromorphone HCl (Hydromorphone Hcl 1 Mg/Ml Syringe) 0.5 mg IVPUSH Q6H PRN; Protocol PRN Reason: Pain, Severe (Pain Scale 7-10) Last Admin: 11/11/21 03:04 Dose: 0.5 mg Documented by: Lactated Ringer's (Lr) 1,000 mls @ 125 mls/hr IVCONT .Q8H [facility] Last Admin: 11/11/21 09:41 Dose: 125 mls/hr Documented by: Magnesium Sulfate (Magnesium Sulfate/H2o) 2 gm in 50 mls @ 25 mls/hr IV ONCE ONE Stop: 11/11/21 14:19 Nicotine Polacrilex (Nicotine Polacrilex 2 Mg Gum) 2 mg BUCCAL Q2H PRN PRN Reason: Nicotine Cravings Last Admin: 11/11/21 12:27 Dose: 2 mg Documented by: Ondansetron HCl (Ondansetron Hcl 4 Mg/2 Ml Vial) 4 mg IVPUSH Q8H PRN PRN Reason: Nausea and Vomiting Last Admin: 11/10/21 15:06 Dose: 4 mg Documented by: Oxycodone HCl (Oxycodone Hcl Immed Release 5 Mg Tablet) 5 mg PO Q4H PRN PRN Reason: Pain, Mild (Pain Scale 1-3) Last Admin: 11/10/21 20:09 Dose: 5 mg Documented by: Pharmacy Consult (Consult Rx Vancomycin Dosing) 1 each MISCELLANE DAILY PRN PRN Reason: Consult order Pharmacy Consult (Consult Rx Vancomycin Dosing) 1 each MISCELLANE DAILY PRN PRN Reason: Consult order Potassium Chloride (Potassium Chloride Packet 20 Meq Packet) 40 meq PO BID [facility] Stop: 11/11/21 21:01 Last Admin: 11/11/21 09:40 Dose: 40 meq Documented by: Sodium Chloride (0.9 % Sodium Chloride Flush 3 Ml Syringe) 3 ml IVFLUSH QSHIFT [facility] Last Admin: 11/11/21 08:54 Dose: Not Given Documented by: Home Medications Medication Instructions Recorded Confirmed Last Taken Type diphenoxylate-atropine 2.5 1 tab PO QID PRN 11/10/21 11/10/21 10/13/21 History mg-0.025 mg tablet promethazine 25 mg tablet 1 tab PO Q6H 11/10/21 11/10/21 10/13/21 History Physical Exam Vital Signs: Vital Signs: Last Vital Signs Temp 100.5 F H 11/11/21 05:09 Pulse 86 11/11/21 08:52 Resp 16 11/11/21 08:52 BP 92/66 11/11/21 08:52 Pulse Ox 96 11/11/21 08:52 BMI result Body Mass Index 19.8 Const: General: cooperative and ill appearing Nutritional Appearance: thin Orientation/consciousness: patient oriented x3 Limitations: no limitations HENMT: Head: Yes normocephalic and Yes atraumatic Ears: hearing grossly normal bilaterally Chest: Other: Left chest with an area of redness in the upper outer quadrant of the periareolar skin Chest/axillae images: 1. Area of redness upper outer quadrant left nipple Resp: Effort & Inspection: normal respiratory effort, able to speak in complete sentences, no audible wheezes, no cough and no respiratory distress GI: Inspection: Yes normal to inspection Palpation (GI): Soft to palpation, Tenderness to palpation present (GI) in the LLQ, in the RLQ, in the LUQ and in the RUQ, no guarding and not rigid Percussion: Yes normal to percussion Auscultation: normal bowel sounds Rectal Exam - Male: Yes normal sphincter tone, No External hemorrhoid(s) present and Yes Excoriation present (GI) (Right perianal wall with a resolving abscess, nontender, non fluctuant) Neuro: General: patient oriented x3 Results Labs Result diagrams: 11/11/21 05:33 11/11/21 05:33 Labs: Abnormal lab results 11/11/21 11/11/21 11/11/21 Range/Units 05:33 05:33 05:33 RBC 3.50 L D (4.60-5.80) X10*6/uL Hgb 9.7 L D (14.0-18.0) g/dl Hct 29.2 L D (42.0-52.0) % MPV 9.0 L (9.4-12.4) fL Immature Gran % (Auto) 2.4 H (0.0-0.4) % Abs Immat Gran (auto) 0.16 H (0.00-0.03) X10*3/uL ESR 19 H (0-15) MM/HR Sodium 133 L (135-145) mmol/L Potassium 3.0 L (3.3-5.1) mmol/L Carbon Dioxide 20 L (22-29) mmol/L Anion Gap 8 L (12-20) Calcium 7.2 L (8.4-10.2) mg/dL Magnesium 1.5 L (1.6-2.6) mg/dL Short CBC 11/11/21 Range/Units 05:33 WBC 6.7 (4.8-10.8) X10*3/uL Hgb 9.7 L D (14.0-18.0) g/dl Hct 29.2 L D (42.0-52.0) % Plt Count 292 (160-400) X10*3/uL BMP 11/11/21 05:33 Sodium 133 L Potassium 3.0 L Chloride 108 Carbon Dioxide 20 L BUN 9 Creatinine 0.81 Calcium 7.2 L Urine 11/10/21 Range/Units 05:58 Urine Color YELLOW Urine Appearance CLEAR Urine pH 6.0 (5.0-8.0) Ur Specific [place] <= 1.005 (1.005-1.025) Urine Protein TRACE (NEG-TRACE) MG/DL Urine Glucose (UA) NEG (NEG) MG/DL All other labs normal. Assessment and Plan (1) Crohn's colitis: Status: Acute Plan 51-year-old male patient with Crohn's flare found to have thickened loops of terminal ileum and evidence of dilated loops proximal suggestive of small-bowel obstruction. Patient was started on steroids on admission evaluated by Dr. Palm. The perianal skin wounds appear to be resolving with no residual abscess appreciated. Findings may be associated with prior MRSA infection. He was seen by Infectious Disease for further management of the skin infections. No incision and drainage is required at this time. Will monitor patient for resolution of abdominal symptoms and skin lesions. Procedures Date of Service Date of Service: 11/11/21
[2021-11-11] MEDS: Albumin Human 25 % 100 ML IV ×2 (12:52→14:40)
--- NOTE | 2021-11-11 13:01 | PC.NURSE ---
Pt A&Ox3, LCA, abd TTP in all 4 quadrants at this time. Pain as documented, PA aware of pain, due to BP, unable to increase dose of dilaudid due to soft pressure. Pt is asymptomatic with BP at this time, pt states this is his baseline. Medicated as per MAR orders, fluids running at this time, LR 125/hr. Call ariza within reach. Will continue to monitor.
[2021-11-11 15:09] LABS: Hematocrit 31.2 % (42.0-52.0)
[2021-11-11 15:25] LABS: Vancomycin Trough 9.1 mcg/mL (10.0-20.0)
[2021-11-11 15:34] LABS: C Reactive Protein 9.32 mg/dL (< or = 0.50)
--- NOTE | 2021-11-11 15:34 | HE.PHANOTE ---
Vancomycin Dosing Addendum Vancomycin Trough 9.1 before 4th dose. Increasing dose to 1000 mg q12h for predicted AUC of 494. Next trough 11/12/21 @1400 ( after 2 more doses so a trough would not be drawn while pharmacy is closed).
[2021-11-11] MEDS: ondansetron HCL 4 MG/2 ML VIAL IVPUSH (16:01)
[2021-11-11] MEDS: 0.9 % Sodium Chloride Flush 3 ML SYRINGE IVFLUSH ×2 (16:06→20:24)
[2021-11-11] MEDS: vancomycin HCL 1,000 MG in 0.9 % Sodium Chloride 250 ML 270 MG IV (16:08)
[2021-11-11] MEDS: oxyCODONE HCl Immed Release 5 MG TABLET PO (17:21)
[2021-11-11] MEDS: Magnesium Sulfate/H2O 2 GM/50 ML PIGGYBACK IV (17:22)
[2021-11-12] MEDS: Hydrocortisone Sod Succ/PF 100 MG VIAL IVPUSH ×3 (01:10→16:14)
[2021-11-12] MEDS: HYDROmorphone HCl 1 MG/ML SYRINGE 0.5 MG IVPUSH ×3 (01:11→11:22)
[2021-11-12 03:38] VITALS: BP 113/76; PULSE 54; RESP 14; TEMP 36.4; O2SAT 97
[2021-11-12] MEDS: Lactated Ringers 1,000 ML 125 ML IVCONT ×3 (04:25→16:22)
[2021-11-12] MEDS: vancomycin HCL 1,000 MG in 0.9 % Sodium Chloride 250 ML 270 MG IV ×2 (04:26→16:13)
[2021-11-12 05:52] LABS: Hematocrit 32.1 % (42.0-52.0); Hemoglobin 10.5 g/dl (14.0-18.0); Mean Corpuscular HGB Conc 32.7 g/dl (31.0-36.0); Mean Corpuscular Hemoglobin 27.8 pg (27.0-33.0); Mean Corpuscular Volume 84.9 fL (80.0-98.0); Mean Platelet Volume 9.4 fL (9.4-12.4); Platelet Count 340 X10*3/uL (160-400); Red Blood Count 3.78 X10*6/uL (4.60-5.80); Red Cell Distribution Width 15.3 % (11.0-16.0); White Blood Count 5.6 X10*3/uL (4.8-10.8)
[2021-11-12] MEDS: ondansetron HCL 4 MG/2 ML VIAL IVPUSH ×2 (06:17→19:21)
[2021-11-12] MEDS: Nicotine Polacrilex 2 MG GUM BUCCAL ×4 (06:17→19:21)
[2021-11-12 07:01] VITALS: BP 114/73; PULSE 52; RESP 16; TEMP 36.2; O2SAT 96
[2021-11-12 07:12] LABS: Anion Gap 9 (12-20); Blood Urea Nitrogen 6 mg/dL (9-16); Calcium 8.1 mg/dL (8.4-10.2); Carbon Dioxide 22 mmol/L (22-29); Chloride 106 mmol/L (96-108); Creatinine Clr Calc Pharmacy 108.3; Estimated Glomerular Filt Rate > 60; Glucose Random 126 mg/dL (60-115); Magnesium 2.1 mg/dL (1.6-2.6); Sodium 132 mmol/L (135-145)
[2021-11-12] MEDS: 0.9 % Sodium Chloride Flush 3 ML SYRINGE IVFLUSH ×2 (08:09→16:14)
[2021-11-12] MEDS: Enoxaparin Sodium 40 MG/0.4 ML SYRINGE SUBCUT (08:14)
[2021-11-12 11:05] VITALS: BP 100/64; PULSE 77; RESP 18; TEMP 35.5; O2SAT 99
--- NOTE | 2021-11-12 12:04 | P.PNIM_ITS ---
Subjective Subjective Date of Service: 11/12/21 Interval History: seen and examined this morning observed sitting up in bed, appears more comfortable still reporting non-bloody diarrhea and abdominal pain (reports at least 6 BM daily at BL) nausea and vomiting improved Review of Systems Review of Systems: Yes all other systems are reviewed and are negative Constitutional Constitutional: Denies chills and Denies fever(s) Cardiovascular Cardiovascular: Denies chest pain, Denies palpitations and Denies dyspnea Respiratory Respiratory: Denies cough and Denies dyspnea Gastrointestinal Gastrointestinal: Reports abdominal pain, Reports diarrhea, Denies nausea and Denies vomiting Endocrine Endocrine: Denies palpitations Physical Exam Vital Signs: Vital Signs: Last Vital Signs Temp 96 F L 11/12/21 11:05 Pulse 77 11/12/21 11:05 Resp 18 11/12/21 11:05 BP 100/64 11/12/21 11:05 Pulse Ox 99 11/12/21 11:05 BMI result Body Mass Index 19.8 Const: General: alert and awake Nutritional Appearance: thin Orientation/consciousness: oriented to person and patient oriented x3 Resp: Effort & Inspection: normal respiratory effort and able to speak in complete sentences Cardio: Rate: regular rate Heart sounds: S1 normal heart sound present and S2 normal heart sound present GI: Other: tenderness left side; non-distended Palpation (GI): Soft to palpation and Tenderness to palpation present (GI) Neuro: General: oriented to person and patient oriented x3 Extrem: Other: no leg edema Objective Data Active Medications Acetaminophen (Acetaminophen 325 Mg Tablet) 650 mg PO Q4H PRN PRN Reason: Fever Last Admin: 11/11/21 17:21 Dose: 650 mg Documented by: DEVONTE Enoxaparin Sodium (Enoxaparin Sodium 40 Mg/0.4 Ml Syringe) 40 mg SUBCUT Q24H [facility] Last Admin: 11/12/21 08:14 Dose: 40 mg Documented by: ALEXANDRA Hydrocortisone Sodium Succinate (Hydrocortisone Sod Succ/Pf 100 Mg Vial) 100 mg IVPUSH Q8H [facility] Last Admin: 11/12/21 08:09 Dose: 100 mg Documented by: ALEXANDRA Hydromorphone HCl (Hydromorphone Hcl 1 Mg/Ml Syringe) 0.5 mg IVPUSH Q3H PRN; Protocol PRN Reason: Pain, Severe (Pain Scale 7-10) Lactated Ringer's (Lr) 1,000 mls @ 125 mls/hr IVCONT .Q8H [facility] Last Admin: 11/12/21 08:14 Dose: 125 mls/hr Documented by: ALEXANDRA Vancomycin HCl 1,000 mg/ (Sodium Chloride) 270 mls @ 270 mls/hr IV Q12H [facility] Last Infusion: 11/12/21 05:45 Dose: 0 mls/hr Documented by: JOSE Nicotine Polacrilex (Nicotine Polacrilex 2 Mg Gum) 2 mg BUCCAL Q2H PRN PRN Reason: Nicotine Cravings Last Admin: 11/12/21 11:23 Dose: 2 mg Documented by: ALEXANDRA Ondansetron HCl (Ondansetron Hcl 4 Mg/2 Ml Vial) 4 mg IVPUSH Q8H PRN PRN Reason: Nausea and Vomiting Last Admin: 11/12/21 06:17 Dose: 4 mg Documented by: JOSE Oxycodone HCl (Oxycodone Hcl Immed Release 5 Mg Tablet) 5 mg PO Q4H PRN PRN Reason: Pain, Mild (Pain Scale 1-3) Last Admin: 11/11/21 17:21 Dose: 5 mg Documented by: DEVONTE Pharmacy Consult (Consult Rx Vancomycin Dosing) 1 each MISCELLANE DAILY PRN PRN Reason: Consult order Pharmacy Consult (Consult Rx Vancomycin Dosing) 1 each MISCELLANE DAILY PRN PRN Reason: Consult order Sodium Chloride (0.9 % Sodium Chloride Flush 3 Ml Syringe) [facility] Last Admin: 11/12/21 08:09 Dose: 3 ml Documented by: ALEXANDRA Labs CBC & Chem 7: 11/12/21 05:21 11/12/21 05:21 Labs: Laboratory Results - last 24 hr 11/11/21 11/11/21 11/12/21 14:36 14:36 05:21 MCV 84.9 MCH 27.8 MCHC 32.7 RDW 15.3 Plt Count 340 MPV 9.4 Absolute Nucleated RBC 0.000 Nucleated RBC % (auto) 0.0 Anion Gap Estim Creat Clear Calc Estimated GFR Random Glucose Calcium Magnesium C-Reactive Protein 9.32 H Vancomycin Trough 9.1 L 11/12/21 05:21 MCV MCH MCHC RDW Plt Count MPV Absolute Nucleated RBC Nucleated RBC % (auto) Anion Gap 9 L Estim Creat Clear Calc 108.3 Estimated GFR > 60 Random Glucose 126 H Calcium 8.1 L D Magnesium 2.1 C-Reactive Protein Vancomycin Trough Microbiology Microbiology Results: Microbiology 11/10/21 01:58 Gram Stain - Final Abscess Ischiorectal Routine Culture - Final 11/10/21 10:23 Stool Culture - Preliminary Stool Normal so far. 11/10/21 01:58 Blood Culture - Preliminary Blood - Venous No growth after 48 hours. 11/10/21 01:58 Blood Culture - Preliminary Blood - Venous No growth after 48 hours. Assessment and Plan (1) Crohn's colitis: Status: Acute (2) Sepsis: Status: Acute Plan 51-year-old male with a past medical history of Crohn's disease, tobacco dependence, history of MRSA skin infection presented to the hospital with a chief complaint of abdominal pain/? Nausea/vomiting / diarrhea/fever/ skin wounds.? Admitted for acute crohns flare Patient likely requires 2 midnights in the hospital due to acute Crohn's colitis flare with severe abdominal pain. Sepsis secondary to colitis vs right buttock abscess met sepsis criteria with fever, tachycardia, leukocytosis continue to have borderline blood pressure; fever & leukocytosis resolved seen by ID, rec continue IV vancomycin, d/c zosyn Acute Crohn's Colitis flare CT abdomen showed severe inflammation/possible partial SBO secondary to stricture seen by GI, rec IV steroids tolerating clear liquids, but still requiring multiple daily doses of anti- emetics & IV narcotics continue IV fluids continue Pain control cdif negative, stool wbc negative, stool calprotectin pending Hyponatremia, mild sodium 132 follow BMP Partial SBO Patient reports he has been moving Bowels and passing gas not requiring NGT having some nausea, no vomiting seen by general surgery Normocytic anemia no evidence of blood loss likely dilutional stool occult pending H/H stable Hypokalemia/hypomagnesemia likely secondary to GI losses replace and follow Right Buttock abscess Hx of MRSA infection Start Vancomycin draining of admission, wound cx collected Follow blood and wound cx Hypotension Likely secondary to Hypovolemia from ongoing diarrhea not septic shock . as ymptomatic albumin ordered Continue IV fluids Protein calorie malnutrition, probable moderate BMI 19.9, low albumin and low protein nutrition consult pending DVT prophylaxis:? Lovenox Code status:? Full code Attending Dr. Garay Patient requires continued hospitalization due to crohns flare, hypovolemia, abdominal pain requiring IV fluids, IV narcotics, IV steroids and requent use of antiemetics Quality Stroke Does the patient have a stroke diagnosis?: No VTE Prior VTE?: No VTE Risk Level:: Medical - moderate - high VTE Device Contraindication: Treatment Not Indicated VTE Drug Contraindication: N/A - Med Ordered
--- NOTE | 2021-11-12 12:54 | P.CDIC_ITS ---
CDI Concurrent Query Documentation Clarification: PHYSICIAN'S DOCUMENTATION REQUEST Date of Query: 11/12/21 1250 Patient Name: Stevie Newman Admit Date: 11/10/21 Dear Doctor, A review of the medical record indicates additional documentation may be needed. Please review below and update the documentation accordingly. Risk Factors/Clinical Indicators/Treatments Cachectic, thin - BMI 19.9 5' 7 Albumin 2.3 Total protein 5.3 GI 3/3 - N/V/D- patient believes he has lost about 30+ pounds over past several months. If possible, please provide an associated diagnosis related to the abnormal BMI, such as: For a BMI <= 19: * Underweight * Weight loss * Cachexia * Anorexia * Malnutrition, mild, moderate or unknown Or: * BMI is not significant * Other (please specify) * Unable to determine Use of terms such as suspected, likely, concern for, or probable (associated with a specific diagnosis that is being evaluated, monitored, or treated as if it exists) are acceptable and can be coded in the inpatient setting, when documented at the time of discharge. Thank you, Vicki Campos [facility], CDIS Extension: [phone] Please use your independent medical judgment in providing your response. THIS QUERY IS PART OF THE PERMANENT MEDICAL RECORD Provider Response: Other (protein calorie malnutrition, unable to determine severity ) Other Diagnosis: protein calorie malnutrition, unable to determine severity
[2021-11-12 15:05] LABS: Vancomycin Trough 14.2 mcg/mL (10.0-20.0)
[2021-11-12 15:51] VITALS: BP 116/73; PULSE 71; RESP 18; TEMP 36.4; O2SAT 97
[2021-11-12] MEDS: HYDROmorphone HCl 1 MG/ML SYRINGE IVPUSH ×2 (15:54→20:06)
[2021-11-12 16:38] LABS: OBS Int Ctl Valid YES; OBS1 NEGATIVE (NEGATIVE)
[2021-11-12 19:58] VITALS: BP 110/73; PULSE 78; RESP 20; TEMP 35.9; O2SAT 99
[2021-11-12 22:30] LABS: Glucose, Whole Blood 124 mg/dL (60-115)
[2021-11-12 23:51] VITALS: BP 108/66; PULSE 58; RESP 16; TEMP 36.8; O2SAT 98
--- NOTE | 2021-11-13 | ECG_ITS ---
Test Reason : cp Blood Pressure : / mmHG Vent. Rate : 043 BPM Atrial Rate : 043 BPM P-R Int : 126 ms QRS Dur : 108 ms QT Int : 470 ms P-R-T Axes : 023 058 072 degrees QTc Int : 397 ms Marked sinus bradycardia with Premature supraventricular complexes Septal infarct (cited on or before 04-FEB-2020) Abnormal ECG When compared with ECG of 04-FEB-2020 19:50, Premature supraventricular complexes are now Present Vent. rate has decreased BY 47 BPM Questionable change in QRS axis Nonspecific T wave abnormality now evident in Anterior leads Referred By: Aishwarya Loya Electronically Signed By:KRISTY JACKSON MD
[2021-11-13] MEDS: Hydrocortisone Sod Succ/PF 100 MG VIAL IVPUSH ×3 (00:20→16:31)
[2021-11-13] MEDS: HYDROmorphone HCl 1 MG/ML SYRINGE IVPUSH ×6 (00:21→22:58)
[2021-11-13] MEDS: Nicotine Polacrilex 2 MG GUM BUCCAL ×5 (00:21→22:58)
[2021-11-13] MEDS: Lactated Ringers 1,000 ML 125 ML IVCONT (00:25)
[2021-11-13] MEDS: vancomycin HCL 1,000 MG in 0.9 % Sodium Chloride 250 ML 270 MG IV (03:43)
[2021-11-13 04:00] VITALS: BP 102/67; PULSE 54; RESP 16; TEMP 36.7; O2SAT 98
[2021-11-13 05:46] LABS: Hematocrit 30.2 % (42.0-52.0); Hemoglobin 9.8 g/dl (14.0-18.0); Mean Corpuscular HGB Conc 32.5 g/dl (31.0-36.0); Mean Corpuscular Hemoglobin 27.5 pg (27.0-33.0); Mean Corpuscular Volume 84.6 fL (80.0-98.0); Mean Platelet Volume 9.6 fL (9.4-12.4); Platelet Count 345 X10*3/uL (160-400); Red Blood Count 3.57 X10*6/uL (4.60-5.80); Red Cell Distribution Width 15.7 % (11.0-16.0); White Blood Count 11.1 X10*3/uL (4.8-10.8)
[2021-11-13 06:00] LABS: Anion Gap 7 (12-20); Blood Urea Nitrogen 4 mg/dL (9-16); Calcium 8.2 mg/dL (8.4-10.2); Carbon Dioxide 27 mmol/L (22-29); Chloride 106 mmol/L (96-108); Creatinine Clr Calc Pharmacy 106.6; Estimated Glomerular Filt Rate > 60; Glucose Random 118 mg/dL (60-115); Potassium 3.8 mmol/L (3.3-5.1); Sodium 136 mmol/L (135-145)
[2021-11-13 07:29] VITALS: BP 117/68; PULSE 44; RESP 18; TEMP 36; O2SAT 100
[2021-11-13] MEDS: Enoxaparin Sodium 40 MG/0.4 ML SYRINGE SUBCUT (07:57)
[2021-11-13] MEDS: 0.9 % Sodium Chloride Flush 3 ML SYRINGE IVFLUSH ×3 (07:58→20:32)
[2021-11-13] MEDS: ondansetron HCL 4 MG/2 ML VIAL IVPUSH ×2 (08:55→22:58)
--- NOTE | 2021-11-13 10:09 | P.PNIM_ITS ---
Subjective Subjective Date of Service: 11/13/21 Review of Systems Follow up crohns flare Still with abdominal pain and nausea taking clear liquids fine sitting up in bed Physical Exam Vital Signs: Vital Signs: Last Vital Signs Temp 96.8 F 11/13/21 07:29 Pulse 44 L 11/13/21 07:29 Resp 18 11/13/21 07:29 BP 117/68 11/13/21 07:29 Pulse Ox 100 11/13/21 07:29 BMI result Body Mass Index 19.8 Appearing in no acute distress lung sounds are clear to auscultation heart regular rate rhythm, clear S1, S2 positive bowel sounds, abdomen is soft, LLQ tenderness neuro patient is alert x3, no focal deficits Buttock boil with no erythema or edema Objective Data Active Medications Acetaminophen (Acetaminophen 325 Mg Tablet) 650 mg PO Q4H PRN PRN Reason: Fever Last Admin: 11/11/21 17:21 Dose: 650 mg Documented by: DEVONTE Enoxaparin Sodium (Enoxaparin Sodium 40 Mg/0.4 Ml Syringe) 40 mg SUBCUT Q24H [facility] Last Admin: 11/13/21 07:57 Dose: 40 mg Documented by: ALEXANDRA Hydrocortisone Sodium Succinate (Hydrocortisone Sod Succ/Pf 100 Mg Vial) 100 mg IVPUSH Q8H [facility] Last Admin: 11/13/21 07:58 Dose: 100 mg Documented by: ALEXANDRA Hydromorphone HCl (Hydromorphone Hcl 1 Mg/Ml Syringe) 1 mg IVPUSH Q4H PRN; Protocol PRN Reason: Pain, Severe (Pain Scale 7-10) Last Admin: 11/13/21 08:54 Dose: 1 mg Documented by: ALEXANDRA Lactated Ringer's (Lr) 1,000 mls @ 125 mls/hr IVCONT .Q8H [facility] Last Admin: 11/13/21 00:25 Dose: 125 mls/hr Documented by: STANTON Vancomycin HCl 1,000 mg/ (Sodium Chloride) 270 mls @ 270 mls/hr IV Q12H [facility] Last Infusion: 11/13/21 04:44 Dose: 0 mls/hr Documented by: STANTON Nicotine Polacrilex (Nicotine Polacrilex 2 Mg Gum) 2 mg BUCCAL Q2H PRN PRN Reason: Nicotine Cravings Last Admin: 11/13/21 08:07 Dose: 2 mg Documented by: ALEXANDRA Ondansetron HCl (Ondansetron Hcl 4 Mg/2 Ml Vial) 4 mg IVPUSH Q8H PRN PRN Reason: Nausea and Vomiting Last Admin: 11/13/21 08:55 Dose: 4 mg Documented by: ALEXANDRA Oxycodone HCl (Oxycodone Hcl Immed Release 5 Mg Tablet) 5 mg PO Q4H PRN PRN Reason: Pain, Mild (Pain Scale 1-3) Last Admin: 11/11/21 17:21 Dose: 5 mg Documented by: DEVONTE Pharmacy Consult (Consult Rx Vancomycin Dosing) 1 each MISCELLANE DAILY PRN PRN Reason: Consult order Pharmacy Consult (Consult Rx Vancomycin Dosing) 1 each MISCELLANE DAILY PRN PRN Reason: Consult order Sodium Chloride (0.9 % Sodium Chloride Flush 3 Ml Syringe) 3 ml IVFLUSH [facility] Last Admin: 11/13/21 07:58 Dose: 3 ml Documented by: ALEXANDRA Labs CBC & Chem 7: 11/13/21 05:19 11/13/21 05:19 Labs: Laboratory Results - last 24 hr 11/12/21 11/12/21 11/12/21 14:29 15:47 22:24 MCV MCH MCHC RDW Plt Count MPV Absolute Nucleated RBC Nucleated RBC % (auto) Anion Gap Estim Creat Clear Calc Estimated GFR POC Glucose 124 H Random Glucose Calcium Stool Occult Blood NEGATIVE Vancomycin Trough 14.2 11/13/21 11/13/21 05:19 05:19 MCV 84.6 MCH 27.5 MCHC 32.5 RDW 15.7 Plt Count 345 MPV 9.6 Absolute Nucleated RBC 0.000 Nucleated RBC % (auto) 0.0 Anion Gap 7 L Estim Creat Clear Calc 106.6 Estimated GFR > 60 POC Glucose Random Glucose 118 H Calcium 8.2 L Stool Occult Blood Vancomycin Trough Microbiology Microbiology Results: Microbiology 11/10/21 10:23 Stool Culture - Final Stool 11/10/21 01:58 Gram Stain - Final Abscess Ischiorectal Routine Culture - Final Assessment and Plan (1) Crohn's colitis: Status: Acute (2) Sepsis: Status: Acute Plan 51-year-old male with a past medical history of Crohn's disease, tobacco dependence, history of MRSA skin infection presented to the hospital with a chief complaint of abdominal pain/? Nausea/vomiting / diarrhea/fever/ skin wounds.? Admitted for acute crohns flare Patient likely requires 2 midnights in the hospital due to acute Crohn's colitis flare with severe abdominal pain. Acute Crohn's Colitis flare CT abdomen showed severe inflammation/possible partial SBO secondary to stricture seen by GI, rec IV steroids tolerating clear liquids, but still requiring multiple daily doses of anti- emetics & IV narcotics continue IV fluids cdif negative, stool wbc negative, stool calprotectin pending Right Buttock abscess Hx of MRSA infection draining on admission Wound cx mixed magda, stop vancomycin Sepsis secondary to colitis vs right buttock abscess. Resolved met sepsis criteria with fever, tachycardia, leukocytosis continue to have borderline blood pressure; fever & leukocytosis resolved Hyponatremia. Resolved sodium 132 follow BMP Partial SBO Patient reports he has been moving Bowels and passing gas not requiring NGT having some nausea, no vomiting seen by general surgery Normocytic anemia no evidence of blood loss likely dilutional stool occult pending H/H stable Hypokalemia/hypomagnesemia. Resolved likely secondary to GI losses replace and follow Hypotension Likely secondary to Hypovolemia from ongoing diarrhea not septic shock . asymptomatic albumin ordered Continue IV fluids Protein calorie malnutrition, probable moderate BMI 19.9, low albumin and low protein nutrition consult pending DVT prophylaxis:? Lovenox Code status:? Full code Attending Dr. Huizar Patient requires continued hospitalization due to crohns flare, hypovolemia, abdominal pain requiring IV fluids, IV narcotics, IV steroids and frequent use of antiemetics Quality Stroke Does the patient have a stroke diagnosis?: No VTE Prior VTE?: No VTE Risk Level:: Medical - moderate - high VTE Device Contraindication: Treatment Not Indicated VTE Drug Contraindication: N/A - Med Ordered
[2021-11-13 10:36] LABS: Glucose, Whole Blood 142 mg/dL (60-115)
[2021-11-13 10:59] VITALS: BP 114/70; PULSE 59; RESP 18; TEMP 36; O2SAT 99
[2021-11-13 14:53] LABS: Vancomycin Trough 16.3 mcg/mL (10.0-20.0)
--- NOTE | 2021-11-13 14:57 | PM.IDPN ---
Subjective Subjective Date of Service: 11/13/21 Critical Care Time (minutes): 15 Comment: He has new symptom of swelling in penis and wants to show Urology. He otherwise feels better. Objective Data Labs CBC & Chem 7: 11/19/21 19:01 11/19/21 19:01 Labs: Laboratory Results - last 24 hr 11/12/21 11/12/21 11/12/21 14:29 15:47 22:24 WBC RBC Hgb Hct MCV MCH MCHC RDW Plt Count MPV Absolute Nucleated RBC Nucleated RBC % (auto) Sodium Potassium Chloride Carbon Dioxide Anion Gap BUN Creatinine Estim Creat Clear Calc Estimated GFR POC Glucose 124 H Random Glucose Calcium Stool Occult Blood NEGATIVE Vancomycin Trough 14.2 11/13/21 11/13/21 11/13/21 05:19 05:19 10:26 WBC 11.1 H RBC 3.57 L Hgb 9.8 L Hct 30.2 L MCV 84.6 MCH 27.5 MCHC 32.5 RDW 15.7 Plt Count 345 MPV 9.6 Absolute Nucleated RBC 0.000 Nucleated RBC % (auto) 0.0 Sodium 136 Potassium 3.8 Chloride 106 Carbon Dioxide 27 Anion Gap 7 L BUN 4 L Creatinine 0.66 Estim Creat Clear Calc 106.6 Estimated GFR > 60 POC Glucose 142 H Random Glucose 118 H Calcium 8.2 L Stool Occult Blood Vancomycin Trough 11/13/21 14:18 WBC RBC Hgb Hct MCV MCH MCHC RDW Plt Count MPV Absolute Nucleated RBC Nucleated RBC % (auto) Sodium Potassium Chloride Carbon Dioxide Anion Gap BUN Creatinine Estim Creat Clear Calc Estimated GFR POC Glucose Random Glucose Calcium Stool Occult Blood Vancomycin Trough 16.3 Microbiology Microbiology Results: Microbiology 11/10/21 10:23 Stool Stool Culture - Final 11/10/21 01:58 Abscess Ischiorectal Gram Stain - Final 11/10/21 01:58 Abscess Ischiorectal Routine Culture - Final 11/10/21 01:58 Blood - Venous Blood Culture - Preliminary No growth after 48 hours. 11/10/21 01:58 Blood - Venous Blood Culture - Preliminary No growth after 48 hours. Physical Exam Vital Signs: Vital Signs: Last Vital Signs Temp 96.8 F 11/13/21 10:59 Pulse 59 11/13/21 10:59 Resp 18 11/13/21 10:59 BP 114/70 11/13/21 10:59 Pulse Ox 99 11/13/21 10:59 BMI result Body Mass Index 19.8 Const: General: cooperative HENMT: Head: Yes normal to inspection Resp: Effort & Inspection: normal respiratory effort Cardio: Rate: regular rate Rhythm: regular rhythm GI: Palpation (GI): Soft to palpation and nontender Extrem: General: Yes normal to inspection Assessment and Plan Assessment and plan (1) Sepsis: Problem details: Resolving symptoms and fever,right buttock area improving although did have deep infection there several years ago he said Status: Acute (2) Fever: Problem details: Agree stop Vancomycin and low threshold to image hip area if drainage reappears. Status: Acute (3) Crohn's colitis: Status: Acute Time Spent With Patient Time: Total time spent is greater than 50% in coordination of care (as documented) at patient's floor/unit and/or counseling patient: Time with patient: 15 - 24 minutes
[2021-11-13 15:41] VITALS: BP 110/70; PULSE 51; RESP 17; TEMP 36.3; O2SAT 99
[2021-11-13 19:36] VITALS: BP 110/77; PULSE 52; RESP 16; TEMP 36.6; O2SAT 100
[2021-11-13 20:50] LABS: Glucose, Whole Blood 132 mg/dL (60-115)
[2021-11-14] VITALS: BP 119/72; PULSE 52; RESP 17; TEMP 36.1; O2SAT 97
[2021-11-14] MEDS: Hydrocortisone Sod Succ/PF 100 MG VIAL IVPUSH ×4 (00:28→23:45)
[2021-11-14] MEDS: HYDROmorphone HCl 1 MG/ML SYRINGE IVPUSH ×5 (03:18→23:44)
[2021-11-14 04:00] VITALS: BP 105/69; PULSE 60; RESP 17; TEMP 36.4; O2SAT 97
[2021-11-14 07:11] LABS: Magnesium 1.9 mg/dL (1.6-2.6)
[2021-11-14 07:14] LABS: Anion Gap 11 (12-20); Blood Urea Nitrogen 3 mg/dL (9-16); Calcium 8.4 mg/dL (8.4-10.2); Carbon Dioxide 25 mmol/L (22-29); Chloride 105 mmol/L (96-108); Creatinine Clr Calc Pharmacy 96.4; Estimated Glomerular Filt Rate > 60; Glucose Random 107 mg/dL (60-115); Potassium 3.5 mmol/L (3.3-5.1); Sodium 137 mmol/L (135-145)
[2021-11-14 07:21] LABS: TSH reflex Free T4 0.61 uIU/mL (0.32-4.0)
[2021-11-14 07:24] VITALS: BP 111/61; PULSE 42; RESP 18; TEMP 36.5; O2SAT 98
[2021-11-14] MEDS: Enoxaparin Sodium 40 MG/0.4 ML SYRINGE SUBCUT (07:29)
[2021-11-14] MEDS: 0.9 % Sodium Chloride Flush 3 ML SYRINGE IVFLUSH ×3 (07:31→19:25)
[2021-11-14] MEDS: Nicotine Polacrilex 2 MG GUM BUCCAL ×2 (07:37→19:23)
--- NOTE | 2021-11-14 09:15 | P.PNIM_ITS ---
Subjective Subjective Date of Service: 11/14/21 Review of Systems Follow up crohns flare Still with abdominal pain and nausea taking clear liquids fine sitting up in bed Physical Exam Vital Signs: Vital Signs: Last Vital Signs Temp 97.7 F 11/14/21 07:24 Pulse 42 L 11/14/21 07:24 Resp 18 11/14/21 07:24 BP 111/61 11/14/21 07:24 Pulse Ox 98 11/14/21 07:24 BMI result Body Mass Index 19.8 Appearing in no acute distress lung sounds are clear to auscultation heart regular rate rhythm, clear S1, S2 positive bowel sounds, abdomen is soft, nontender neuro patient is alert x3, no focal deficits Objective Data Active Medications Acetaminophen (Acetaminophen 325 Mg Tablet) 650 mg PO Q4H PRN PRN Reason: Fever Last Admin: 11/11/21 17:21 Dose: 650 mg Documented by: DEVONTE Enoxaparin Sodium (Enoxaparin Sodium 40 Mg/0.4 Ml Syringe) 40 mg SUBCUT Q24H [facility] Last Admin: 11/14/21 07:29 Dose: 40 mg Documented by: ALEXANRDA Hydrocortisone Sodium Succinate (Hydrocortisone Sod Succ/Pf 100 Mg Vial) 100 mg IVPUSH Q8H [facility] Last Admin: 11/14/21 07:31 Dose: 100 mg Documented by: ALEXANDRA Hydromorphone HCl (Hydromorphone Hcl 1 Mg/Ml Syringe) 1 mg IVPUSH Q4H PRN; Protocol PRN Reason: Pain, Severe (Pain Scale 7-10) Last Admin: 11/14/21 07:30 Dose: 1 mg Documented by: ALEXANDRA Nicotine Polacrilex (Nicotine Polacrilex 2 Mg Gum) 2 mg BUCCAL Q2H PRN PRN Reason: Nicotine Cravings Last Admin: 11/14/21 07:37 Dose: 2 mg Documented by: ALEXANDRA Ondansetron HCl (Ondansetron Hcl 4 Mg/2 Ml Vial) 4 mg IVPUSH Q8H PRN PRN Reason: Nausea and Vomiting Last Admin: 11/13/21 22:58 Dose: 4 mg Documented by: STANTON Oxycodone HCl (Oxycodone Hcl Immed Release 5 Mg Tablet) 5 mg PO Q4H PRN PRN Reason: Pain, Mild (Pain Scale 1-3) Last Admin: 11/11/21 17:21 Dose: 5 mg Documented by: DEVONTE Pharmacy Consult (Consult Rx Vancomycin Dosing) 1 each MISCELLANE DAILY PRN PRN Reason: Consult order Pharmacy Consult (Consult Rx Vancomycin Dosing) 1 each MISCELLANE DAILY PRN PRN Reason: Consult order Sodium Chloride (0.9 % Sodium Chloride Flush 3 Ml Syringe) 3 ml IVFLUSH QSLAFT [facility] Last Admin: 11/14/21 07:31 Dose: 3 ml Documented by: ALEXANDRA Labs CBC & Chem 7: 11/13/21 05:19 11/14/21 05:56 Labs: Laboratory Results - last 24 hr 11/13/21 11/13/21 11/13/21 10:26 14:18 20:32 Anion Gap Estim Creat Clear Calc Estimated GFR POC Glucose 142 H 132 H Random Glucose Calcium Magnesium TSH Vancomycin Trough 16.3 11/14/21 11/14/21 11/14/21 05:56 05:56 05:56 Anion Gap 11 L Estim Creat Clear Calc 96.4 Estimated GFR > 60 POC Glucose Random Glucose 107 Calcium 8.4 Magnesium Cancelled 1.9 TSH Cancelled 0.61 Vancomycin Trough Microbiology Microbiology Results: Microbiology 11/10/21 10:23 Stool Culture - Final Stool Assessment and Plan (1) Crohn's colitis: Status: Acute (2) Sepsis: Status: Acute Plan 51-year-old male with a past medical history of Crohn's disease, tobacco dependence, history of MRSA skin infection presented to the hospital with a chief complaint of abdominal pain/? Nausea/vomiting / diarrhea/fever/ skin wounds.? Admitted for acute crohns flare Patient likely requires 2 midnights in the hospital due to acute Crohn's colitis flare with severe abdominal pain. Acute Crohn's Colitis flare CT abdomen showed severe inflammation/possible partial SBO secondary to stricture seen by GI, rec IV steroids tolerating clear liquids, will advance to full liquids stop IV fluids cdif negative, stool wbc negative Anasarca, acute Penile swelling, no pain likely from IV fluids, stop Bradycardia episodes of HR in the 40's, asymptomatic lytes and tsh wnl monitor on telemetry possibly related to narcotic pain medication follow closely Right Buttock abscess Hx of MRSA infection draining on admission Wound cx mixed magda, stop vancomycin Sepsis secondary to colitis vs right buttock abscess. Resolved met sepsis criteria with fever, tachycardia, leukocytosis continue to have borderline blood pressure; fever & leukocytosis resolved Hyponatremia. Resolved sodium 132 follow BMP Partial SBO Patient reports he has been moving Bowels and passing gas not requiring NGT having some nausea, no vomiting seen by general surgery Normocytic anemia no evidence of blood loss likely dilutional stool occult pending H/H stable Hypokalemia/hypomagnesemia. Resolved likely secondary to GI losses replace and follow Hypotension Likely secondary to Hypovolemia from ongoing diarrhea not septic shock . asymptomatic albumin ordered Continue IV fluids Protein calorie malnutrition, probable moderate BMI 19.9, low albumin and low protein nutrition consult pending DVT prophylaxis:? Lovenox Code status:? Full code Attending Dr. Huizar Patient requires continued hospitalization due to crohns flare, hypovolemia, abdominal pain requiring IV narcotics, IV steroids and frequent use of antiemetics Quality Stroke Does the patient have a stroke diagnosis?: No VTE Prior VTE?: No VTE Risk Level:: Medical - moderate - high VTE Device Contraindication: Treatment Not Indicated VTE Drug Contraindication: N/A - Med Ordered
[2021-11-14 11:58] LABS: Glucose, Whole Blood 198 mg/dL (60-115)
[2021-11-14 12:00] VITALS: BP 114/69; PULSE 55; RESP 18; TEMP 36.3; O2SAT 98
--- NOTE | 2021-11-14 14:04 | MHC.CM.PN ---
PATIENT STILL ON IV STEROIDS AND EXPRESSING HIGH PAIN LEVELS. NO PLAN FOR DISCHARGE TODAY. CASE MANAGEMENT AVAILABLE FOR ANY CHANGES IN DC PLAN.
[2021-11-14 15:35] VITALS: BP 115/70; PULSE 46; RESP 16; TEMP 36; O2SAT 99
[2021-11-14 16:20] LABS: Glucose, Whole Blood 111 mg/dL (60-115)
[2021-11-14] MEDS: ondansetron HCL 4 MG/2 ML VIAL IVPUSH (19:24)
[2021-11-14 20:00] VITALS: BP 119/65; PULSE 41; RESP 16; TEMP 36.4; O2SAT 99
[2021-11-14 20:13] LABS: Glucose, Whole Blood 124 mg/dL (60-115)
[2021-11-15] VITALS (7 sets, daily range): BP systolic 103–138; BP diastolic 60–87; PULSE 40–68; RESP 12–18; TEMP 36–36.8; O2SAT 95–99; BMI 19.8
[2021-11-15] MEDS: HYDROmorphone HCl 1 MG/ML SYRINGE IVPUSH ×5 (04:08→21:07)
--- NOTE | 2021-11-15 04:53 | PC.NURSE ---
Pt is mostly up all night and ambulating to the BR as ad leticia, mostly still with left sided abdl pain ,prn Dilaudid given with some relief, tolerating liquid diet, felt nauseous x1, prn Zofran given with effect, HR has been sustaining mostly on the low 30s-mid 30s in tele then 40s, pt denies any palpitation nor lightheadedness, rest of Vitals are WNL, Dr. Chavez was made aware.
[2021-11-15 06:18] LABS: Anion Gap 12 (12-20); Blood Urea Nitrogen 3 mg/dL (9-16); Calcium 8.3 mg/dL (8.4-10.2); Carbon Dioxide 29 mmol/L (22-29); Chloride 101 mmol/L (96-108); Creatinine Clr Calc Pharmacy 91.4; Estimated Glomerular Filt Rate > 60; Glucose Random 114 mg/dL (60-115); Potassium 2.7 mmol/L (3.3-5.1); Sodium 139 mmol/L (135-145)
[2021-11-15 07:39] LABS: Glucose, Whole Blood 105 mg/dL (60-115)
[2021-11-15] MEDS: 0.9 % Sodium Chloride Flush 3 ML SYRINGE IVFLUSH ×3 (08:20→21:07)
[2021-11-15] MEDS: Potassium Chloride Packet 20 MEQ PACKET 40 MEQ PO (08:21)
[2021-11-15] MEDS: Enoxaparin Sodium 40 MG/0.4 ML SYRINGE SUBCUT (08:21)
[2021-11-15] MEDS: predniSONE 20 MG TABLET 40 MG PO (08:22)
[2021-11-15] MEDS: ondansetron HCL 4 MG/2 ML VIAL IVPUSH ×2 (08:33→17:06)
[2021-11-15] MEDS: Nicotine Polacrilex 2 MG GUM BUCCAL ×3 (08:34→21:07)
--- NOTE | 2021-11-15 10:19 | MHC.CM.PN ---
nurse infant childcare provider note per documentation patient admitted with crohns colitis flare , patient reported to me today that his [employer] secondary insurance was cancelled , he asked for referral to [facility] financial counselors for reinstatement of his [employer] , he reported thayt when his [employer] stopped he could no longer pay for his maintaince medications secondary to high cost for his chronic crohns disease , referral to [facility] finanical counsleors was completed
--- NOTE | 2021-11-15 11:39 | HO.PM.IMPN ---
Subjective Subjective Date of Service: 11/15/21 Review of Systems Follow up crohns flare Still with abdominal pain and nausea taking clear liquids fine sitting on the edge of bed drinking coffee Physical Exam Vital Signs: Vital Signs: Last Vital Signs Temp 97.5 F 11/15/21 07:27 Pulse 60 11/15/21 07:27 Resp 12 11/15/21 07:27 BP 133/72 11/15/21 07:27 Pulse Ox 95 11/15/21 07:27 BMI result Body Mass Index 19.8 Appearing in no acute distress lung sounds are clear to auscultation heart regular rate rhythm, clear S1, S2 positive bowel sounds, abdomen is soft, tender to LLQ neuro patient is alert x3, no focal deficits Objective Data Active Medications Acetaminophen (Acetaminophen 325 Mg Tablet) 650 mg PO Q4H PRN PRN Reason: Fever Last Admin: 11/11/21 17:21 Dose: 650 mg Documented by: DEVONTE Enoxaparin Sodium (Enoxaparin Sodium 40 Mg/0.4 Ml Syringe) 40 mg SUBCUT Q24H FRANK Last Admin: 11/15/21 08:21 Dose: 40 mg Documented by: CARMEN Hydromorphone HCl (Hydromorphone Hcl 1 Mg/Ml Syringe) 1 mg IVPUSH Q4H PRN; Protocol PRN Reason: Pain, Severe (Pain Scale 7-10) Last Admin: 11/15/21 08:33 Dose: 1 mg Documented by: CARMEN Nicotine Polacrilex (Nicotine Polacrilex 2 Mg Gum) 2 mg BUCCAL Q2H PRN PRN Reason: Nicotine Cravings Last Admin: 11/15/21 08:34 Dose: 2 mg Documented by: CARMEN Ondansetron HCl (Ondansetron Hcl 4 Mg/2 Ml Vial) 4 mg IVPUSH Q8H PRN PRN Reason: Nausea and Vomiting Last Admin: 11/15/21 08:33 Dose: 4 mg Documented by: CARMEN Oxycodone HCl (Oxycodone Hcl Immed Release 5 Mg Tablet) 5 mg PO Q4H PRN PRN Reason: Pain, Mild (Pain Scale 1-3) Last Admin: 11/11/21 17:21 Dose: 5 mg Documented by: DEVONTE Pharmacy Consult (Consult Rx Vancomycin Dosing) 1 each MISCELLANE DAILY PRN PRN Reason: Consult order Pharmacy Consult (Consult Rx Vancomycin Dosing) 1 each MISCELLANE DAILY PRN PRN Reason: Consult order Potassium Chloride (Potassium Chloride Packet 20 Meq Packet) 40 meq PO ONCE ONE Stop: 11/16/21 08:02 Prednisone (Prednisone 20 Mg Tablet) 40 mg PO DAILY [facility] Last Admin: 11/15/21 08:22 Dose: 40 mg Documented by: CARMEN Sodium Chloride (0.9 % Sodium Chloride Flush 3 Ml Syringe) 3 ml IVFLUSH QSHIFT [facility] Last Admin: 11/15/21 08:20 Dose: 3 ml Documented by: CARMEN Labs CBC & Chem 7: 11/13/21 05:19 11/15/21 05:46 Labs: Laboratory Results - last 24 hr 11/14/21 11/14/21 11/14/21 11:00 15:38 20:07 Anion Gap Estim Creat Clear Calc Estimated GFR POC Glucose 198 H 111 124 H Random Glucose Calcium 11/15/21 11/15/21 05:46 07:25 Anion Gap 12 Estim Creat Clear Calc 91.4 Estimated GFR > 60 POC Glucose 105 Random Glucose 114 Calcium 8.3 L Microbiology Microbiology Results: Microbiology 11/10/21 01:58 Blood Culture - Final Blood - Venous No growth after 5 days. 11/10/21 01:58 Blood Culture - Final Blood - Venous No growth after 5 days. Assessment and Plan (1) Crohn's colitis: Status: Acute (2) Sepsis: Status: Acute Plan 51-year-old male with a past medical history of Crohn's disease, tobacco dependence, history of MRSA skin infection presented to the hospital with a chief complaint of abdominal pain/? Nausea/vomiting / diarrhea/fever/ skin wounds.? Admitted for acute crohns flare Patient likely requires 2 midnights in the hospital due to acute Crohn's colitis flare with severe abdominal pain. Acute Crohn's Colitis flare CT abdomen showed severe inflammation/possible partial SBO secondary to stricture seen by GI, rec IV steroids tolerating clear liquids, will advance to full liquids stop IV fluids cdif negative, stool wbc negative Repeat abd CT to assess for improvement or worsening Hypokalemia s/p lokelma Anasarca, acute. resolved Penile swelling, no pain likely from IV fluids, stopped Bradycardia episodes of HR in the 40's, asymptomatic lytes and tsh wnl monitor on telemetry possibly related to narcotic pain medication follow closely Right Buttock abscess Hx of MRSA infection draining on admission Wound cx mixed magda, stop vancomycin Sepsis secondary to colitis vs right buttock abscess. Resolved met sepsis criteria with fever, tachycardia, leukocytosis continue to have borderline blood pressure; fever & leukocytosis resolved Hyponatremia. Resolved sodium 132 follow BMP Partial SBO Patient reports he has been moving Bowels and passing gas not requiring NGT having some nausea, no vomiting seen by general surgery Normocytic anemia no evidence of blood loss likely dilutional stool occult pending H/H stable Hypokalemia/hypomagnesemia. Resolved likely secondary to GI losses replace and follow Hypotension Likely secondary to Hypovolemia from ongoing diarrhea not septic shock . asymptomatic albumin ordered Continue IV fluids Protein calorie malnutrition, moderate BMI 19.9, low albumin and low protein nutrition consult pending ensure added DVT prophylaxis:? Lovenox Code status:? Full code Attending Dr. Garay Patient requires continued hospitalization due to crohns flare, hypovolemia, abdominal pain requiring IV narcotics, IV steroids and frequent use of antiemetics Quality Stroke Does the patient have a stroke diagnosis?: No VTE Prior VTE?: No VTE Risk Level:: Medical - moderate - high VTE Device Contraindication: Treatment Not Indicated VTE Drug Contraindication: N/A - Med Ordered
[2021-11-15 11:47] LABS: Glucose, Whole Blood 151 mg/dL (60-115)
--- NOTE | 2021-11-15 12:04 | MHC.CLN ---
NUTRITION PATIENT AT HIGH NUTRITIONAL RISK DUE TO REPORTED SIGNIFICANT WEIGHT LOSS, 86% OF BMI, MILD FAT DEPLETION AND MILD MUSCLE DEPLETION. REPORTS WEIGHT LOSS OF -24% X 3 MONTHS WITH USUALLY POOR INTAKE. NUTRITION DX NON SEVERE, MODERATE, MALNUTRITION IN THE CONTEXT OF CHRONIC ILLNESS. DIET=FULL LIQUIDS. ADDING ENSURE CLEAR TID PER PATIENT PREFERENCE. SUPPLEMENT PROVIDES ADDIITONAL 720 KCALS, 2 G PROTEIN. SEE CLINICAL NUTRITION ASSESSMENT.
--- NOTE | 2021-11-15 12:43 | MHC.CM.PN ---
Addendum entered by Belia Ken 11/15/21 12:50: patients doctor is in [place] he lives in [facility] Original Note: nurse case management note electronic medical record reviewd along with case discussed on multiple displinary rounds. patient with crohns flare up , continues to be followed and monitored by g, iv fluids to be d/ today and iv vanco coninue other medicatons , patient informed me that his [employer] has=d suspended and he was unable to afford his crohns medication, referal to [facility] financial services to see if it can be reinstated, so he can is able to financially afford the high cost of the medications/ discharge plan home when medically stable home no services transportation he will self arrange a ride to [place] pcp/gi dr jose alfredo antonio
[2021-11-15] MEDS: iohexoL 350 MG/ML 100 ML INFUS..BTL 85 ML IV (14:41)
[2021-11-15 16:25] LABS: Glucose, Whole Blood 118 mg/dL (60-115)
--- NOTE | 2021-11-15 16:27 | PM.GIPN ---
Subjective Subjective Date of Service: 11/15/21 Interval History: tolerating coffee with creamer Critical Care Time (minutes): 0 Physical Exam Vital Signs: Vital Signs: Last Vital Signs Temp 97.7 F 11/15/21 16:00 Pulse 41 L 11/15/21 16:00 Resp 18 11/15/21 16:00 BP 138/76 11/15/21 16:00 Pulse Ox 98 11/15/21 16:00 BMI result Body Mass Index 19.8 Cardio: Other: normal s1 and s2 GI: Other: abdomen is soft and mild epigastric tenderness is present Objective Data Labs CBC & Chem 7: 11/13/21 05:19 11/15/21 05:46 Procedures Date of Service Date of Service: 11/15/21 Progress Note: A&P Assessment and plan (1) Crohn's colitis: Status: Acute Assessment and Plan: repeat ct scan pending slow improvement continue steroids Fall Risk Details Current Medications: Current Medications Acetaminophen (Acetaminophen 325 Mg Tablet) 650 mg PO Q4H PRN PRN Reason: Fever Last Admin: 11/11/21 17:21 Dose: 650 mg Documented by: Enoxaparin Sodium (Enoxaparin Sodium 40 Mg/0.4 Ml Syringe) 40 mg SUBCUT Q24H FRANK Last Admin: 11/15/21 08:21 Dose: 40 mg Documented by: Hydromorphone HCl (Hydromorphone Hcl 1 Mg/Ml Syringe) 1 mg IVPUSH Q4H PRN; Protocol PRN Reason: Pain, Severe (Pain Scale 7-10) Last Admin: 11/15/21 12:50 Dose: 1 mg Documented by: Nicotine Polacrilex (Nicotine Polacrilex 2 Mg Gum) 2 mg BUCCAL Q2H PRN PRN Reason: Nicotine Cravings Last Admin: 11/15/21 08:34 Dose: 2 mg Documented by: Ondansetron HCl (Ondansetron Hcl 4 Mg/2 Ml Vial) 4 mg IVPUSH Q8H PRN PRN Reason: Nausea and Vomiting Last Admin: 11/15/21 08:33 Dose: 4 mg Documented by: Oxycodone HCl (Oxycodone Hcl Immed Release 5 Mg Tablet) 5 mg PO Q4H PRN PRN Reason: Pain, Mild (Pain Scale 1-3) Last Admin: 11/11/21 17:21 Dose: 5 mg Documented by: Pharmacy Consult (Consult Rx Vancomycin Dosing) 1 each MISCELLANE DAILY PRN PRN Reason: Consult order Pharmacy Consult (Consult Rx Vancomycin Dosing) 1 each MISCELLANE DAILY PRN PRN Reason: Consult order Potassium Chloride (Potassium Chloride Packet 20 Meq Packet) 40 meq PO ONCE ONE Stop: 11/16/21 08:02 Prednisone (Prednisone 20 Mg Tablet) 40 mg PO DAILY [facility] Last Admin: 11/15/21 08:22 Dose: 40 mg Documented by: Sodium Chloride (0.9 % Sodium Chloride Flush 3 Ml Syringe) [facility] Last Admin: 11/15/21 08:20 Dose: 3 ml Documented by: Time Spent With Patient Time: Total time spent is greater than 50% in coordination of care (as documented) at patient's floor/unit and/or counseling patient: Time with patient: less than 15 minutes Quality Stroke Does the patient have a stroke diagnosis?: No VTE Prior VTE?: No VTE Risk Level:: Medical - moderate - high VTE Device Contraindication: Treatment Not Indicated VTE Drug Contraindication: N/A - Med Ordered
[2021-11-15 20:58] LABS: Glucose, Whole Blood 105 mg/dL (60-115)
[2021-11-16] MEDS: HYDROmorphone HCl 1 MG/ML SYRINGE IVPUSH ×6 (01:05→21:01)
[2021-11-16 01:47] LABS: Calprotectin, Fecal 288 mcg/g
[2021-11-16 03:48] VITALS: BP 120/60; PULSE 64; RESP 14; TEMP 36.3; O2SAT 98
[2021-11-16 06:18] LABS: Anion Gap 15 (12-20); Blood Urea Nitrogen 3 mg/dL (9-16); Calcium 8.6 mg/dL (8.4-10.2); Carbon Dioxide 33 mmol/L (22-29); Chloride 93 mmol/L (96-108); Creatinine Clr Calc Pharmacy 97.7; Estimated Glomerular Filt Rate > 60; Glucose Random 80 mg/dL (60-115); Potassium 2.7 mmol/L (3.3-5.1); Sodium 138 mmol/L (135-145)
[2021-11-16 07:04] LABS: Hematocrit 35.7 % (42.0-52.0); Mean Corpuscular HGB Conc 33.3 g/dl (31.0-36.0); Mean Corpuscular Hemoglobin 27.3 pg (27.0-33.0); Mean Corpuscular Volume 81.9 fL (80.0-98.0); Mean Platelet Volume 9.6 fL (9.4-12.4); NRBC Pct Auto 0.2 /100WBC (0.0-0.2); Platelet Count 534 X10*3/uL (160-400); Red Blood Count 4.36 X10*6/uL (4.60-5.80); Red Cell Distribution Width 15.5 % (11.0-16.0); White Blood Count 14.8 X10*3/uL (4.8-10.8)
[2021-11-16 07:06] LABS: Hemoglobin 11.9 g/dl (14.0-18.0)
[2021-11-16 07:13] VITALS: BP 111/65; PULSE 64; RESP 14; TEMP 36.1; O2SAT 98
[2021-11-16 07:14] LABS: Glucose, Whole Blood 87 mg/dL (60-115)
[2021-11-16] MEDS: Potassium Chloride Packet 20 MEQ PACKET 40 MEQ PO (08:13)
[2021-11-16] MEDS: 0.9 % Sodium Chloride Flush 3 ML SYRINGE IVFLUSH (08:14)
[2021-11-16] MEDS: predniSONE 20 MG TABLET 40 MG PO (08:14)
[2021-11-16] MEDS: Enoxaparin Sodium 40 MG/0.4 ML SYRINGE SUBCUT (08:14)
[2021-11-16] MEDS: ondansetron HCL 4 MG/2 ML VIAL IVPUSH ×2 (08:57→21:05)
[2021-11-16] MEDS: Nicotine Polacrilex 2 MG GUM BUCCAL ×2 (08:57→17:04)
--- NOTE | 2021-11-16 09:11 | P.PNIM_ITS ---
Subjective Subjective Date of Service: 11/16/21 Review of Systems Follow up crohns flare Still with abdominal pain and nausea taking clear liquids laying in bed today with epigastric pain Physical Exam Vital Signs: Vital Signs: Last Vital Signs Temp 97.0 F 11/16/21 07:13 Pulse 64 11/16/21 07:13 Resp 14 11/16/21 07:13 BP 111/65 11/16/21 07:13 Pulse Ox 98 11/16/21 07:13 BMI result Body Mass Index 19.8 Laying in bed, pale lung sounds are clear to auscultation heart regular rate rhythm, clear S1, S2 positive bowel sounds, epigastric and LLQ abd pain neuro patient is alert x3, no focal deficits Objective Data Active Medications Acetaminophen (Acetaminophen 325 Mg Tablet) 650 mg PO Q4H PRN PRN Reason: Fever Last Admin: 11/11/21 17:21 Dose: 650 mg Documented by: DEVONTE Enoxaparin Sodium (Enoxaparin Sodium 40 Mg/0.4 Ml Syringe) 40 mg SUBCUT Q24H FRANK Last Admin: 11/16/21 08:14 Dose: 40 mg Documented by: DEVONTE Famotidine (Famotidine/Pf 20 Mg/2 Ml Vial) 20 mg IVPUSH BID FRANK Hydrocortisone Sodium Succinate (Hydrocortisone Sod Succ/Pf 100 Mg Vial) 100 mg IVPUSH Q8H FRANK Hydromorphone HCl (Hydromorphone Hcl 1 Mg/Ml Syringe) 1 mg IVPUSH Q4H PRN; Protocol PRN Reason: Pain, Severe (Pain Scale 7-10) Last Admin: 11/16/21 08:56 Dose: 1 mg Documented by: DEVONTE Potassium Cl/Dextrose/Lact Ringer's () 20 meq in 1,000 mls @ 100 mls/hr IVCONT .Q10H FRANK Nicotine Polacrilex (Nicotine Polacrilex 2 Mg Gum) 2 mg BUCCAL Q2H PRN PRN Reason: Nicotine Cravings Last Admin: 11/16/21 08:57 Dose: 2 mg Documented by: DEVONTE Ondansetron HCl (Ondansetron Hcl 4 Mg/2 Ml Vial) 4 mg IVPUSH Q8H PRN PRN Reason: Nausea and Vomiting Last Admin: 11/16/21 08:57 Dose: 4 mg Documented by: DEVONTE Pharmacy Consult (Consult Rx Vancomycin Dosing) 1 each MISCELLANE DAILY PRN PRN Reason: Consult order Pharmacy Consult (Consult Rx Vancomycin Dosing) 1 each MISCELLANE DAILY PRN PRN Reason: Consult order Sodium Chloride (0.9 % Sodium Chloride Flush 3 Ml Syringe) 3 ml IVFLUSH QSHIFT [facility] Last Admin: 11/16/21 08:14 Dose: 3 ml Documented by: DEVONTE Labs CBC & Chem 7: 11/16/21 05:25 11/16/21 05:25 Labs: Laboratory Results - last 24 hr 11/11/21 11/15/21 11/15/21 09:10 11:39 15:49 MCV MCH MCHC RDW Plt Count MPV Absolute Nucleated RBC Nucleated RBC % (auto) Anion Gap Estim Creat Clear Calc Estimated GFR POC Glucose 151 H 118 H Random Glucose Calcium Stool Calprotectin 288 H 11/15/21 11/16/21 11/16/21 20:54 05:25 05:25 MCV 81.9 MCH 27.3 MCHC 33.3 RDW 15.5 Plt Count 534 H D MPV 9.6 Absolute Nucleated RBC 0.030 H Nucleated RBC % (auto) 0.2 Anion Gap 15 Estim Creat Clear Calc 97.7 Estimated GFR > 60 POC Glucose 105 Random Glucose 80 Calcium 8.6 Stool Calprotectin 11/16/21 07:10 MCV MCH MCHC RDW Plt Count MPV Absolute Nucleated RBC Nucleated RBC % (auto) Anion Gap Estim Creat Clear Calc Estimated GFR POC Glucose 87 Random Glucose Calcium Stool Calprotectin Microbiology Microbiology Results: Microbiology 11/10/21 01:58 Blood Culture - Final Blood - Venous No growth after 5 days. Assessment and Plan (1) Crohn's colitis: Status: Acute (2) Sepsis: Status: Acute Plan 51-year-old male with a past medical history of Crohn's disease, tobacco dependence, history of MRSA skin infection presented to the hospital with a chief complaint of abdominal pain/? Nausea/vomiting / diarrhea/fever/ skin wounds.? Admitted for acute crohns flare Patient likely requires 2 midnights in the hospital due to acute Crohn's colitis flare with severe abdominal pain. Acute Crohn's Colitis flare CT abdomen showed severe inflammation/possible partial SBO secondary to stricture tolerating certain clear liquids Will add back IV fluids with potassium cdif negative, stool wbc negative Repeat abd CT suggests no change to active crohns, still with partial obstruction, change oral steroids back to solucortef, if no change in the next day or two consider surgical consult. GI following Epigastric pain Add IV pepcid likely some degree of gastritis from steroids Hypokalemia oral potassium and add potassium to IV fluids likely secondary to GI losses Anasarca, acute. resolved Penile swelling, no pain likely from IV fluids, stopped Bradycardia episodes of HR in the 40's, asymptomatic lytes and tsh wnl monitor on telemetry possibly related to narcotic pain medication follow closely Right Buttock abscess Hx of MRSA infection draining on admission Wound cx mixed magda, stop vancomycin Sepsis secondary to colitis vs right buttock abscess. Resolved met sepsis criteria with fever, tachycardia, leukocytosis continue to have borderline blood pressure; fever & leukocytosis resolved Hyponatremia. Resolved sodium 132 follow BMP Partial SBO Patient reports he has been moving Bowels and passing gas not requiring NGT having some nausea, no vomiting seen by general surgery Normocytic anemia no evidence of blood loss likely dilutional stool occult pending H/H stable Hypotension. improving Likely secondary to Hypovolemia from ongoing diarrhea not septic shock . asymptomatic albumin ordered Continue IV fluids Protein calorie malnutrition, moderate BMI 19.9, low albumin and low protein nutrition consult pending ensure added DVT prophylaxis:? Lovenox Code status:? Full code Attending Dr. Garay Patient requires continued hospitalization due to crohns flare, hypovolemia, abdominal pain requiring IV narcotics, IV steroids and frequent use of antiemetics Quality Stroke Does the patient have a stroke diagnosis?: No VTE Prior VTE?: No VTE Risk Level:: Medical - moderate - high VTE Device Contraindication: Treatment Not Indicated VTE Drug Contraindication: N/A - Med Ordered
[2021-11-16 09:27] LABS: Magnesium 1.7 mg/dL (1.6-2.6)
[2021-11-16] MEDS: Hydrocortisone Sod Succ/PF 100 MG VIAL IVPUSH ×2 (11:15→19:05)
[2021-11-16] MEDS: Famotidine/PF 20 MG/2 ML VIAL IVPUSH ×2 (11:17→19:50)
[2021-11-16 11:37] VITALS: BP 147/66; PULSE 80; RESP 20; TEMP 36.2; O2SAT 97
[2021-11-16] MEDS: KCl 20 mEq in 5 % Dex/Lact Rin 20 MEQ/1,000 ML IV.SOLN 100 MEQ IVCONT ×2 (11:53→21:01)
[2021-11-16 11:57] LABS: Glucose, Whole Blood 96 mg/dL (60-115)
--- NOTE | 2021-11-16 14:18 | MHC.CM.PN ---
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 MET WITH PATIENT TODAY , HE REPORTS FEELING INCREASED PAIN TODAY , ON CLEAR LIQUIDS, CONTINUES ON IV STEROIDS , IV ANALGEICS , IV PEPCI, ANTIEMETICS DISCHARGE PLAN HOME NO SERVICES TRANSPORTATION HE WILL SELF ARRANGE A RIDE
[2021-11-16 15:04] VITALS: BP 112/58; PULSE 60; RESP 18; TEMP 36.7; O2SAT 100
[2021-11-16 15:55] LABS: Glucose, Whole Blood 191 mg/dL (60-115)
[2021-11-16 19:27] VITALS: BP 127/64; PULSE 65; RESP 18; TEMP 37.1; O2SAT 99
[2021-11-16] MEDS: Insulin Lispro 100 UNIT/ML 3 ML VIAL SUBCUT (19:50)
[2021-11-16 20:01] LABS: Glucose, Whole Blood 272 mg/dL (60-115)
[2021-11-17] VITALS (8 sets, daily range): BP systolic 99–127; BP diastolic 65–87; PULSE 48–96; RESP 14–20; TEMP 36.3–37.3; O2SAT 95–98
[2021-11-17] MEDS: Nicotine Polacrilex 2 MG GUM BUCCAL (01:05)
[2021-11-17] MEDS: HYDROmorphone HCl 1 MG/ML SYRINGE IVPUSH ×5 (01:05→19:35)
[2021-11-17] MEDS: Hydrocortisone Sod Succ/PF 100 MG VIAL IVPUSH ×3 (02:11→17:26)
[2021-11-17] MEDS: KCl 20 mEq in 5 % Dex/Lact Rin 20 MEQ/1,000 ML IV.SOLN 100 MEQ IVCONT ×3 (05:43→21:19)
[2021-11-17 06:19] LABS: Hematocrit 34.4 % (42.0-52.0); Hemoglobin 11.3 g/dl (14.0-18.0); Mean Corpuscular HGB Conc 32.8 g/dl (31.0-36.0); Mean Corpuscular Hemoglobin 27.5 pg (27.0-33.0); Mean Corpuscular Volume 83.7 fL (80.0-98.0); Mean Platelet Volume 9.2 fL (9.4-12.4); Platelet Count 527 X10*3/uL (160-400); Red Blood Count 4.11 X10*6/uL (4.60-5.80); Red Cell Distribution Width 15.6 % (11.0-16.0); White Blood Count 11.8 X10*3/uL (4.8-10.8)
[2021-11-17 06:48] LABS: Anion Gap 14 (12-20); Blood Urea Nitrogen 4 mg/dL (9-16); Calcium 8.5 mg/dL (8.4-10.2); Carbon Dioxide 40 mmol/L (22-29); Chloride 89 mmol/L (96-108); Creatinine Clr Calc Pharmacy 95.1; Estimated Glomerular Filt Rate > 60; Glucose Random 123 mg/dL (60-115); Potassium 2.9 mmol/L (3.3-5.1); Sodium 140 mmol/L (135-145)
[2021-11-17 07:16] LABS: Glucose, Whole Blood 162 mg/dL (60-115)
[2021-11-17] MEDS: Insulin Lispro 100 UNIT/ML 3 ML VIAL SUBCUT ×2 (08:47→20:12)
[2021-11-17] MEDS: Enoxaparin Sodium 40 MG/0.4 ML SYRINGE SUBCUT (08:49)
--- NOTE | 2021-11-17 08:50 | P.PNIM_ITS ---
Subjective Subjective Date of Service: 11/17/21 Interval History: Seen in f/u for acute chrohn flare.. Still has 10 to 12 diarrhea a day, and severe abdominal pain Review of Systems abdominal pain, diarrhea, no fever Physical Exam Vital Signs: Vital Signs: Last Vital Signs Temp 97.9 F 11/17/21 06:54 Pulse 71 11/17/21 06:54 Resp 16 11/17/21 06:54 BP 108/68 11/17/21 06:54 Pulse Ox 96 11/17/21 06:54 BMI result Body Mass Index 19.8 Objective Data Active Medications Acetaminophen (Acetaminophen 325 Mg Tablet) 650 mg PO Q4H PRN PRN Reason: Fever Last Admin: 11/11/21 17:21 Dose: 650 mg Documented by: DEVONTE Dextrose (Dextrose 50 % 25 Gm/50 Ml Vial) 25 gm IVPUSH Q15M PRN; Protocol PRN Reason: per Hypoglycemia Standing Ord. Enoxaparin Sodium (Enoxaparin Sodium 40 Mg/0.4 Ml Syringe) 40 mg SUBCUT Q24H [facility] Last Admin: 11/17/21 08:49 Dose: 40 mg Documented by: JILL Famotidine (Famotidine/Pf 20 Mg/2 Ml Vial) 20 mg IVPUSH BID [facility] Last Admin: 11/16/21 19:50 Dose: 20 mg Documented by: STANTON Glucose (Glucose Gel 15 Gm Gel..Gram.) 15 gm PO Q15M PRN; Protocol PRN Reason: per Hypoglycemia Standing Ord. Hydrocortisone Sodium Succinate (Hydrocortisone Sod Succ/Pf 100 Mg Vial) 100 mg IVPUSH Q8H [facility] Last Admin: 11/17/21 02:11 Dose: 100 mg Documented by: STANTON Hydromorphone HCl (Hydromorphone Hcl 1 Mg/Ml Syringe) 1 mg IVPUSH Q4H PRN; Protocol PRN Reason: Pain, Severe (Pain Scale 7-10) Last Admin: 11/17/21 05:05 Dose: 1 mg Documented by: STANTON Potassium Cl/Dextrose/Lact Ringer's () 20 meq in 1,000 mls @ 100 mls/hr IVCONT .Q10H [facility] Last Admin: 11/17/21 05:43 Dose: 100 mls/hr Documented by: STANTON Insulin Human Lispro (Insulin Lispro 100 Unit/Ml 3 Ml Vial) 0 unit SUBCUT QIDACHS [facility]; Protocol Last Admin: 11/17/21 08:47 Dose: 2 unit Documented by: JILL Nicotine Polacrilex (Nicotine Polacrilex 2 Mg Gum) 2 mg BUCCAL Q2H PRN PRN Reason: Nicotine Cravings Last Admin: 11/17/21 01:05 Dose: 2 mg Documented by: STANTON Ondansetron HCl (Ondansetron Hcl 4 Mg/2 Ml Vial) 4 mg IVPUSH Q8H PRN PRN Reason: Nausea and Vomiting Last Admin: 11/16/21 21:05 Dose: 4 mg Documented by: STANTON Pharmacy Consult (Consult Rx Vancomycin Dosing) 1 each MISCELLANE DAILY PRN PRN Reason: Consult order Sodium Chloride (0.9 % Sodium Chloride Flush 3 Ml Syringe) 3 ml IVFLUSH [facility] Last Admin: 11/17/21 07:15 Dose: Not Given Documented by: JILL Non-Admin Reason: IV Running Labs CBC & Chem 7: 11/17/21 06:00 11/17/21 06:00 Labs: Laboratory Results - last 24 hr 11/16/21 11/16/21 11/16/21 05:25 11:03 15:06 MCV MCH MCHC RDW Plt Count MPV Absolute Nucleated RBC Nucleated RBC % (auto) Anion Gap Estim Creat Clear Calc Estimated GFR POC Glucose 96 191 H Random Glucose Calcium Magnesium 1.7 11/16/21 11/17/21 11/17/21 19:29 06:00 06:00 MCV 83.7 MCH 27.5 MCHC 32.8 RDW 15.6 Plt Count 527 H MPV 9.2 L Absolute Nucleated RBC 0.000 Nucleated RBC % (auto) 0.0 Anion Gap 14 Estim Creat Clear Calc 95.1 Estimated GFR > 60 POC Glucose 272 H Random Glucose 123 H D Calcium 8.5 Magnesium 11/17/21 07:13 MCV MCH MCHC RDW Plt Count MPV Absolute Nucleated RBC Nucleated RBC % (auto) Anion Gap Estim Creat Clear Calc Estimated GFR POC Glucose 162 H Random Glucose Calcium Magnesium Assessment and Plan (1) Crohn's colitis: Status: Acute (2) Colitis: Status: Acute Plan 51-year-old male with a past medical history of Crohn's disease, tobacco dependence, history of MRSA skin infection presented to the hospital with a chief complaint of abdominal pain/? Nausea/vomiting / diarrhea/fever/ skin wounds.? Acute Crohn's Colitis flare with severe imflamation on CT and pSBO on IV steroid per gi rec, consider transition to angelita steroid advance diet and ultimately discharge Anasarca, acute Penile swelling, no pain likely from IV fluids, stop Bradycardia episodes of HR in the 40's, asymptomatic lytes and tsh wnl monitor on telemetry possibly related to narcotic pain medication follow closely Right Buttock abscess Hx of MRSA infection draining on admission Wound cx mixed magda, was on vanco but stoppped Sepsis secondary to colitis vs right buttock abscess. Resolved met sepsis criteria with fever, tachycardia, leukocytosis continue to have borderline blood pressure; fever & leukocytosis resolved Hyponatremia. Resolved, Na 140 now Partial SBO--seen by surgery, conservative managment clinically seem resolved Anemia of chronic from chrohn's H/H stable Hypokalemia/hypomagnesemia. K is 2. 9 today, replace, check mag Hypotension--from diarrhea, resolved, IVF to keep up with GI loss fromdiarrhea Moderate Protein calorie malnutrition -supplement, nutiriotion eval DVT prophylaxis:? Lovenox Code status:? Full code Attending Dr. Huizar Patient requires continued hospitalization due to crohns flare with active imflmation that required steroid, and IV to keep with profuse diarrhea leading to hypotension Quality Stroke Does the patient have a stroke diagnosis?: No VTE Prior VTE?: No VTE Risk Level:: Medical - moderate - high VTE Device Contraindication: Treatment Not Indicated VTE Drug Contraindication: N/A - Med Ordered
[2021-11-17 09:25] LABS: Magnesium 1.6 mg/dL (1.6-2.6)
[2021-11-17 11:17] LABS: Glucose, Whole Blood 116 mg/dL (60-115)
[2021-11-17] MEDS: Famotidine/PF 20 MG/2 ML VIAL IVPUSH ×2 (11:17→20:12)
--- NOTE | 2021-11-17 12:24 | MHC.CM.PN ---
PATIENT STILL WITH DIARRHEA. PLAN IS DC TO HOME BY Monday11/19/21
[2021-11-17] MEDS: Potassium Chloride ER 20 MEQ TAB.ER.PRT 40 MEQ PO (14:52)
--- NOTE | 2021-11-17 14:55 | MHC.CLN ---
F/U DIET=CLEAR LIQUIDS. ACCEPTING ENSURE CLEAR TID (720 KCALS, 24 G PROTEIN). DISLIKES APPLE JUICE. DINING SERVICES AWARE. INTAKE 25-50% X 3 DAYS. CONTINUE TO FOLLOW FOR DIET ADVANCEMENT/TOLERANCE, AND INTAKE.
[2021-11-17 16:48] LABS: Glucose, Whole Blood 126 mg/dL (60-115)
--- NOTE | 2021-11-17 16:51 | PM.GIPN ---
Subjective Subjective Date of Service: 11/17/21 Interval History: bowel pattern returning close to normal per patient Critical Care Time (minutes): 0 Physical Exam Vital Signs: Vital Signs: Last Vital Signs Temp 98.9 F 11/17/21 15:44 Pulse 70 11/17/21 15:44 Resp 18 11/17/21 15:44 BP 119/81 11/17/21 15:44 Pulse Ox 98 11/17/21 15:44 BMI result Body Mass Index 19.8 Const: Other: alert, NAD GI: Other: abdomen is soft, some l side tenderness to palpation Objective Data Labs CBC & Chem 7: 11/17/21 06:00 11/17/21 06:00 Microbiology Microbiology Results: Microbiology 11/10/21 01:58 Blood - Venous Blood Culture - Final No growth after 5 days. 11/10/21 01:58 Blood - Venous Blood Culture - Final No growth after 5 days. 11/10/21 10:23 Stool Stool Culture - Final 11/10/21 01:58 Abscess Ischiorectal Gram Stain - Final 11/10/21 01:58 Abscess Ischiorectal Routine Culture - Final Procedures Date of Service Date of Service: 11/17/21 Progress Note: A&P Assessment and plan (1) Crohn's colitis: Status: Acute Assessment and Plan: slow improvement continue steroids may need picc line and tpn if unable to shai diet soon. Fall Risk Details Current Medications: Current Medications Acetaminophen (Acetaminophen 325 Mg Tablet) 650 mg PO Q4H PRN PRN Reason: Fever Last Admin: 11/11/21 17:21 Dose: 650 mg Documented by: Dextrose (Dextrose 50 % 25 Gm/50 Ml Vial) 25 gm IVPUSH Q15M PRN; Protocol PRN Reason: per Hypoglycemia Standing Ord. Enoxaparin Sodium (Enoxaparin Sodium 40 Mg/0.4 Ml Syringe) 40 mg SUBCUT Q24H [facility] Last Admin: 11/17/21 08:49 Dose: 40 mg Documented by: Famotidine (Famotidine/Pf 20 Mg/2 Ml Vial) 20 mg IVPUSH BID [facility] Last Admin: 11/17/21 11:17 Dose: 20 mg Documented by: Glucose (Glucose Gel 15 Gm Gel..Gram.) 15 gm PO Q15M PRN; Protocol PRN Reason: per Hypoglycemia Standing Ord. Hydrocortisone Sodium Succinate (Hydrocortisone Sod Succ/Pf 100 Mg Vial) 100 mg IVPUSH Q8H [facility] Last Admin: 11/17/21 11:15 Dose: 100 mg Documented by: Hydromorphone HCl (Hydromorphone Hcl 1 Mg/Ml Syringe) 1 mg IVPUSH Q4H PRN; Protocol PRN Reason: Pain, Severe (Pain Scale 7-10) Last Admin: 11/17/21 14:49 Dose: 1 mg Documented by: Potassium Cl/Dextrose/Lact Ringer's () 20 meq in 1,000 mls @ 100 mls/hr IVCONT .Q10H [facility] Last Admin: 11/17/21 15:31 Dose: Not Given Documented by: Insulin Human Lispro (Insulin Lispro 100 Unit/Ml 3 Ml Vial) 0 unit SUBCUT QIDACHS [facility]; Protocol Last Admin: 11/17/21 11:24 Dose: Not Given Documented by: Nicotine Polacrilex (Nicotine Polacrilex 2 Mg Gum) 2 mg BUCCAL Q2H PRN PRN Reason: Nicotine Cravings Last Admin: 11/17/21 01:05 Dose: 2 mg Documented by: Ondansetron HCl (Ondansetron Hcl 4 Mg/2 Ml Vial) 4 mg IVPUSH Q8H PRN PRN Reason: Nausea and Vomiting Last Admin: 11/16/21 21:05 Dose: 4 mg Documented by: Pharmacy Consult (Consult Rx Vancomycin Dosing) 1 each MISCELLANE DAILY PRN PRN Reason: Consult order Sodium Chloride (0.9 % Sodium Chloride Flush 3 Ml Syringe) [facility] Last Admin: 11/17/21 15:31 Dose: Not Given Documented by: Time Spent With Patient Time: Total time spent is greater than 50% in coordination of care (as documented) at patient's floor/unit and/or counseling patient: Time with patient: less than 15 minutes Quality Stroke Does the patient have a stroke diagnosis?: No VTE Prior VTE?: No VTE Risk Level:: Medical - moderate - high VTE Device Contraindication: Treatment Not Indicated VTE Drug Contraindication: N/A - Med Ordered
[2021-11-17 20:06] LABS: Glucose, Whole Blood 235 mg/dL (60-115)
[2021-11-18] VITALS (9 sets, daily range): BP systolic 105–133; BP diastolic 58–78; PULSE 50–85; RESP 16–20; TEMP 36.6–36.9; O2SAT 94–97
[2021-11-18] MEDS: HYDROmorphone HCl 1 MG/ML SYRINGE IVPUSH ×5 (01:40→21:56)
[2021-11-18] MEDS: Hydrocortisone Sod Succ/PF 100 MG VIAL IVPUSH ×3 (01:40→17:46)
[2021-11-18 07:40] LABS: Glucose, Whole Blood 141 mg/dL (60-115)
[2021-11-18] MEDS: KCl 20 mEq in 5 % Dex/Lact Rin 20 MEQ/1,000 ML IV.SOLN 100 MEQ IVCONT (07:51)
[2021-11-18] MEDS: Famotidine/PF 20 MG/2 ML VIAL IVPUSH ×2 (07:57→20:33)
[2021-11-18] MEDS: Enoxaparin Sodium 40 MG/0.4 ML SYRINGE SUBCUT (07:57)
[2021-11-18] MEDS: ondansetron HCL 4 MG/2 ML VIAL IVPUSH ×2 (08:04→20:50)
[2021-11-18 10:03] LABS: Anion Gap 12 (12-20); Blood Urea Nitrogen 6 mg/dL (9-16); Calcium 8.3 mg/dL (8.4-10.2); Carbon Dioxide 48 mmol/L (22-29); Chloride 85 mmol/L (96-108); Creatinine Clr Calc Pharmacy 96.4; Estimated Glomerular Filt Rate > 60; Glucose Random 145 mg/dL (60-115); Magnesium 1.5 mg/dL (1.6-2.6); Potassium 2.7 mmol/L (3.3-5.1); Sodium 142 mmol/L (135-145)
[2021-11-18] MEDS: Albumin Human 25 % 100 ML IV ×2 (11:19→12:11)
[2021-11-18] MEDS: Potassium Chloride Packet 20 MEQ PACKET 40 MEQ PO (11:21)
[2021-11-18] MEDS: Nicotine Polacrilex 2 MG GUM BUCCAL ×3 (11:27→20:49)
[2021-11-18 11:42] LABS: Glucose, Whole Blood 167 mg/dL (60-115)
[2021-11-18] MEDS: Insulin Lispro 100 UNIT/ML 3 ML VIAL SUBCUT ×2 (12:06→20:50)
[2021-11-18] MEDS: Magnesium Sulfate/H2O 2 GM/50 ML PIGGYBACK IV (13:19)
--- NOTE | 2021-11-18 14:43 | HO.MIDLINE ---
PICC Line Insertion Midline Insertion Diagnosis: [crohns] Indication: [need multiple IV infusions] Pertinent Labs: reviewed Technique: using sterile technique including cap and mask, sterile gown, glove and drape, the [right] arm was prepped and draped in the usual sterile fashion of full barrier technique with CHG. Using ultrasound guidance, [basilic] vein access was obtained in single attempt by this RN. A single lumen non PASV (18G x 8cm) midline was positioned. The procedure was performed in [S272]. Ultrasound was used to document vein patency and for needle entry. [employer] has released the line for use and it is currently dressed with a StatLock, Tegaderm, and CHG disc. Verification has been performed for blood return and line patency. Arm Circumference: 30cm[] Equipment: [Isagen Powerglide PRo ] Catheter Type: [single lumen non PASV 18G x 8cm] Lot #: [[id number]]
[2021-11-18] MEDS: Heparin Sodium,Porcine Flush 50 UNITS, 0.9 % Sodium Chloride Flush 5 ML IVFLUSH ×2 (15:06→20:33)
[2021-11-18] MEDS: Potassium Chloride/H20 10 MEQ/100 ML PIGGYBACK 100 MEQ IV ×2 (15:07→18:38)
[2021-11-18] MEDS: 0.9 % Sodium Chloride Flush 3 ML SYRINGE IVFLUSH (15:07)
--- NOTE | 2021-11-18 15:48 | P.PNIM_ITS ---
Subjective Subjective Date of Service: 11/18/21 Interval History: seen and examined this morning approached and appeared to be resting comfortably, but when he woke he described severe abdominal pain still having diarrhea; tolerating clear liquids but has required multiple doses of antiemetics nurse reports he declined to keep tele monitor on Review of Systems Review of Systems: Yes all other systems are reviewed and are negative Constitutional Constitutional: Denies chills and Denies fever(s) Respiratory Respiratory: Denies cough Gastrointestinal Gastrointestinal: Reports abdominal pain, Reports diarrhea, Reports nausea and Denies vomiting Physical Exam Vital Signs: Vital Signs: Last Vital Signs Temp 98.4 F 11/18/21 12:00 Pulse 75 11/18/21 12:00 Resp 16 11/18/21 12:00 BP 123/75 11/18/21 12:00 Pulse Ox 96 11/18/21 12:00 BMI result Body Mass Index 19.8 Const: General: cooperative, alert, awake and ill appearing Nutritional Appearance: thin Resp: Effort & Inspection: normal respiratory effort and able to speak in complete sentences Cardio: Rate: regular rate Heart sounds: S1 normal heart sound present and S2 normal heart sound present GI: Other: left side tenderness with minimal palpation Inspection: No distended Palpation (GI): Soft to palpation Extrem: Other: b/l leg edema Objective Data Active Medications Acetaminophen (Acetaminophen 325 Mg Tablet) 650 mg PO Q4H PRN PRN Reason: Fever Last Admin: 11/11/21 17:21 Dose: 650 mg Documented by: DEVONTE Heparin Sodium (Porcine) 50 (units/ Sodium Chloride 5 ml) 0 units IVFLUSH TID [facility] Last Admin: 11/18/21 15:06 Dose: 50 unit Documented by: ANNY Dextrose (Dextrose 50 % 25 Gm/50 Ml Vial) 25 gm IVPUSH Q15M PRN; Protocol PRN Reason: per Hypoglycemia Standing Ord. Enoxaparin Sodium (Enoxaparin Sodium 40 Mg/0.4 Ml Syringe) 40 mg SUBCUT Q24H [facility] Last Admin: 11/18/21 07:57 Dose: 40 mg Documented by: ANNY Famotidine (Famotidine/Pf 20 Mg/2 Ml Vial) 20 mg IVPUSH BID [facility] Last Admin: 11/18/21 07:57 Dose: 20 mg Documented by: LEEEMA Glucose (Glucose Gel 15 Gm Gel..Gram.) 15 gm PO Q15M PRN; Protocol PRN Reason: per Hypoglycemia Standing Ord. Hydrocortisone Sodium Succinate (Hydrocortisone Sod Succ/Pf 100 Mg Vial) 100 mg IVPUSH Q8H [facility] Last Admin: 11/18/21 08:04 Dose: 100 mg Documented by: COTEMA Hydromorphone HCl (Hydromorphone Hcl 1 Mg/Ml Syringe) 1 mg IVPUSH Q4H PRN; Protocol PRN Reason: Pain, Severe (Pain Scale 7-10) Last Admin: 11/18/21 12:07 Dose: 1 mg Documented by: COTEMA Potassium Cl/Dextrose/Lact Ringer's () 20 meq in 1,000 mls @ 100 mls/hr IVCONT .Q10H [facility] Last Infusion: 11/18/21 07:51 Dose: 0 mls/hr Documented by: LEEEMA Insulin Human Lispro (Insulin Lispro 100 Unit/Ml 3 Ml Vial) 0 unit SUBCUT QIDACHS [facility]; Protocol Last Admin: 11/18/21 12:06 Dose: 2 unit Documented by: ANNY Loperamide HCl (Loperamide Hcl 2 Mg Capsule) 2 mg PO Q4H PRN PRN Reason: Diarrhea Nicotine Polacrilex (Nicotine Polacrilex 2 Mg Gum) 2 mg BUCCAL Q2H PRN PRN Reason: Nicotine Cravings Last Admin: 11/18/21 11:27 Dose: 2 mg Documented by: COTEMA Ondansetron HCl (Ondansetron Hcl 4 Mg/2 Ml Vial) 4 mg IVPUSH Q8H PRN PRN Reason: Nausea and Vomiting Last Admin: 11/18/21 08:04 Dose: 4 mg Documented by: ANNY Sodium Chloride (0.9 % Sodium Chloride Flush 3 Ml Syringe) 3 ml IVFLUSH QSHIFT [facility] Last Admin: 11/18/21 15:07 Dose: 3 ml Documented by: ANNY Labs CBC & Chem 7: 11/17/21 06:00 11/18/21 08:12 Labs: Laboratory Results - last 24 hr 11/17/21 11/17/21 11/18/21 15:26 19:31 07:12 Anion Gap Estim Creat Clear Calc Estimated GFR POC Glucose 126 H 235 H 141 H Random Glucose Calcium Magnesium 11/18/21 11/18/21 08:12 11:31 Anion Gap 12 Estim Creat Clear Calc 96.4 Estimated GFR > 60 POC Glucose 167 H Random Glucose 145 H Calcium 8.3 L Magnesium 1.5 L Assessment and Plan (1) Crohn's colitis: Status: Acute Plan 51-year-old male with a past medical history of Crohn's disease, tobacco dep endence, history of MRSA skin infection presented to the hospital with a chief complaint of abdominal pain/? Nausea/vomiting / diarrhea/fever/ skin wounds.? Admitted for acute crohns flare? Acute Crohn's Colitis flare CT abdomen showed severe inflammation/possible partial SBO secondary to strictur e cdif negative, stool wbc negative Repeat abd CT 11/15 suggests no change to active crohns, still with partial obstruction, change oral steroids back to solucortef if no change in the next day or two consider surgical consult. seen by GI rec, rec current management tolerating clear liquids with frequent use of antiemetics continue IVF PICC line placed 11/18, plan to start tpn in AM still with multiple episodes of diarrhea daily (pt reports baseline 6-8 x/day) prn imodium to decrease diarrhea Epigastric pain continue IV pepcid likely some degree of gastritis from steroids Hypokalemia/hypomangesemia likely secondary to GI losses aggressive replacement follow daily Anasarca secondary to IV fluids and poor nutritional state will give albumin Bradycardia episodes of HR in the 40's, asymptomatic tsh wnl EKG showing bradycardia monitor on telemetry if pt willing to keep monitor on possibly related to narcotic pain medication follow closely Right Buttock abscess Hx of MRSA infection? draining on admission Wound cx mixed magda, stop vancomycin Sepsis secondary to colitis vs right buttock abscess. Resolved met sepsis criteria with fever, tachycardia, leukocytosis continue to have borderline blood pressure; fever & leukocytosis resolved Hyponatremia. Resolved follow BMP Partial SBO Patient reports he has been moving Bowels and passing gas not requiring NGT having some nausea, no vomiting seen by general surgery Normocytic anemia no evidence of blood loss likely dilutional stool occult pending H/H stable Hypotension. improving Likely secondary to Hypovolemia from ongoing diarrhea not septic shock . asymptomatic albumin ordered Continue IV fluids Protein calorie malnutrition, moderate BMI 19.9, low albumin and low protein nutrition consult pending ensure added DVT prophylaxis:? Lovenox Code status:? Full code Attending Dr. Garay Patient requires continued hospitalization due to crohns flare, hypovolemia, abdominal pain requiring IV narcotics, IV steroids, electrolyte abnormalities and frequent use of antiemetics Quality Stroke Does the patient have a stroke diagnosis?: No VTE Prior VTE?: No VTE Risk Level:: Medical - moderate - high VTE Device Contraindication: Treatment Not Indicated VTE Drug Contraindication: N/A - Med Ordered
--- NOTE | 2021-11-18 16:27 | MHC.CM.PN ---
NURSE ROLLER PICKER NOTE ELCTRONIC MEDICAL RECORD REIEWED ALONG WITH CASE DIACUSSED ON MULTIPLE DISCIPLIANRUY ROUNDS PER DOUCMENTATION PATIENT CONTINUES WIOTH MULTIPLE DIARRHEA, TOLERATING CLEAR LIQUIDS WITH MULTIPLE DOSES OF ANTIEMETICS, PLAN TO CONTINUE TO MONITOR AND MIDLINE PLACED TO START TPN ON 11/19/21 , CONTINUE IF FLUIDS, IV STEROIDS, ,IV ANTIEMETICS, IV FAMOTIDINE. DISCHARGE PLAN HOME NO SERVICES PATIENT HAS NO PCP AND IS NOT INTERESTED IN HAVING ONE HIS GI DR WU IN [place] HIS PCP HE HAS NO HCP , NOT VACINATED TRANSOPORTATION FPATIENT TO SELF ARRANGE NEEDS 24 HRS NOTICE
[2021-11-18] MEDS: Lidocaine HCl 1 % 20 ML VIAL 5 ML INFILTRATI (17:38)
[2021-11-18 17:56] LABS: Glucose, Whole Blood 135 mg/dL (60-115)
[2021-11-18 20:45] LABS: Glucose, Whole Blood 213 mg/dL (60-115)
[2021-11-18 22:49] LABS: Hematocrit 28.2 % (42.0-52.0); Hemoglobin 9.1 g/dl (14.0-18.0)
[2021-11-18 23:53] LABS: OBS Int Ctl Valid YES; OBS1 POSITIVE (NEGATIVE)
[2021-11-19] VITALS (9 sets, daily range): BP systolic 88–125; BP diastolic 55–76; PULSE 67–87; RESP 16–18; TEMP 36.2–37.3; O2SAT 95–98; BMI 19.8
[2021-11-19] MEDS: KCl 20 mEq in 5 % Dex/Lact Rin 20 MEQ/1,000 ML IV.SOLN 100 MEQ IVCONT (00:11)
[2021-11-19 00:36] LABS: CDiff Gene PCR NEGATIVE (Negative)
--- NOTE | 2021-11-19 00:42 | PC.NURSE ---
2200; patient reported having bloody diarrhea, patient reports he has been having diarrhea multiple times a day since admission but they have not been bloody, patient reports 2 bloody diarrhea episodes since 1999. Patient c/o abdominal pain, medicated with prn dilaudid per emar. Dr. Valdes made aware. MD ordered hgb/hct labs, cdiff, stool occult. Oncoming rn for 2300 shift made aware.
[2021-11-19] MEDS: Nicotine Polacrilex 2 MG GUM BUCCAL ×3 (02:06→17:08)
[2021-11-19] MEDS: HYDROmorphone HCl 1 MG/ML SYRINGE IVPUSH ×5 (02:06→20:23)
[2021-11-19] MEDS: Hydrocortisone Sod Succ/PF 100 MG VIAL IVPUSH ×3 (02:06→17:08)
[2021-11-19 07:33] LABS: Glucose, Whole Blood 130 mg/dL (60-115)
[2021-11-19 07:53] LABS: Chloride 84 mmol/L (96-108); Potassium 2.8 mmol/L (3.3-5.1); Sodium 140 mmol/L (135-145)
[2021-11-19 07:54] LABS: Anion Gap 15 (12-20); Blood Urea Nitrogen 6 mg/dL (9-16); Calcium 7.6 mg/dL (8.4-10.2); Creatinine Clr Calc Pharmacy 108.3; Estimated Glomerular Filt Rate > 60; Glucose Random 115 mg/dL (60-115); Magnesium 1.6 mg/dL (1.6-2.6)
[2021-11-19 07:57] LABS: Albumin Level 3.1 g/dL (3.5-5.0); Phosphorus 2.5 mg/dL (2.7-4.5); Triglycerides 86 mg/dL
[2021-11-19 08:08] LABS: Carbon Dioxide 44 mmol/L (22-29)
[2021-11-19] MEDS: Famotidine/PF 20 MG/2 ML VIAL IVPUSH ×2 (08:22→20:23)
[2021-11-19] MEDS: Enoxaparin Sodium 40 MG/0.4 ML SYRINGE SUBCUT (08:22)
[2021-11-19] MEDS: Heparin Sodium,Porcine Flush 50 UNITS, 0.9 % Sodium Chloride Flush 5 ML IVFLUSH ×2 (08:24→17:08)
[2021-11-19 08:32] LABS: Hematocrit 26.9 % (42.0-52.0); Hemoglobin 8.6 g/dl (14.0-18.0); Mean Corpuscular Hemoglobin 27.7 pg (27.0-33.0); Mean Corpuscular Volume 86.5 fL (80.0-98.0); Mean Platelet Volume 9.5 fL (9.4-12.4); Platelet Count 439 X10*3/uL (160-400); Red Blood Count 3.11 X10*6/uL (4.60-5.80); Red Cell Distribution Width 16.6 % (11.0-16.0); White Blood Count 10.8 X10*3/uL (4.8-10.8)
[2021-11-19] MEDS: Magnesium Sulfate/H2O 2 GM/50 ML PIGGYBACK IV (08:37)
--- NOTE | 2021-11-19 09:45 | MHC.CLN ---
TPN NUTRITION CONSULT PATIENT WITH PICC LINE PLACED 11/18. CONTINUES WITH ABDOMINAL PAIN, DIARRHEA, NAUSEA. BLOODY DIARRHEA REPORTED 11/19. HAS BEEN TAKING CLEAR LIQUIDS WITH ENSURE CLEAR TID. ESTIMATED ENERGY AND PROTEIN NEEDS BASED ON ACTUAL BODY WEIGHT 57.606 KG. KCAL NEEDS 30-35 KCAL/ST=[id number] KCALS/KG; PROTEIN NEEDS 1.5 G/KG=86 K/KG. TPN RECOMMENDATION: DAY 1 (11/19/21): D15AA5% AT 30 ML PER HOUR PROVIDES 511 KCAL, 36 G PROTEIN REPLETE LYTES NEEDED. DAY 2 (11/20/21): D15AA5% AT 50 ML PER HOUR PROVIDES 852 KCAL, 60 G PROTEIN REPLETE LYTES NEEDED. CHECK TRIGLYCERIDES. DAY 3 (11/21/21): D15AA5% AT 70 ML PER HOUR (MAX GOAL RATE) PROVIDES 1193 KCAL, 84 G PROTEIN ADD 23 ML OF 20% LIPIDS. TPN AT MAX GOAL RATE WITH LIPIDS PROVIDES 1745 KCAL (30.29 KCALS/KG); 84 G PROTEIN (1.47 G/KG) REPLETE LYTES NEEDED. CHECK TRIGLYCERIDES. PATIENT IS MALNOURISHED. MONITOR FOR REFEEDING, DISCUSSED WITH PHARMACY.
[2021-11-19] MEDS: Potassium Phosphate/NS 15 MMOL/250 ML PLAST..BAG 62.5 MMOL IV (10:21)
[2021-11-19 11:31] LABS: Glucose, Whole Blood 173 mg/dL (60-115)
[2021-11-19] MEDS: Dicyclomine HCl 10 MG CAPSULE 20 MG PO ×2 (11:57→17:08)
[2021-11-19] MEDS: Insulin Lispro 100 UNIT/ML 3 ML VIAL SUBCUT (11:57)
--- NOTE | 2021-11-19 12:30 | HO.PM.IMPN ---
Subjective Subjective Date of Service: 11/19/21 Interval History: Seen and examined this morning Report of multiple episodes of rectal bleeding overnight, repeat CBC shows drop in H/H Patient requesting increase in pain medication No nausea or vomiting Review of Systems Review of Systems: Yes all other systems are reviewed and are negative Constitutional Constitutional: Denies chills and Denies fever(s) Cardiovascular Cardiovascular: Denies chest pain Respiratory Respiratory: Denies cough Gastrointestinal Gastrointestinal: Reports abdominal pain, Reports hematochezia, Reports diarrhea, Denies nausea and Denies vomiting Physical Exam Vital Signs: Vital Signs: Last Vital Signs Temp 98.6 F 11/19/21 12:00 Pulse 87 11/19/21 12:00 Resp 17 11/19/21 12:00 BP 109/68 11/19/21 12:00 Pulse Ox 97 11/19/21 12:00 BMI result Body Mass Index 19.8 Const: General: cooperative, alert, awake and ill appearing Nutritional Appearance: thin Orientation/consciousness: oriented to person and patient oriented x3 Resp: Effort & Inspection: normal respiratory effort and able to speak in complete sentences Cardio: Rate: regular rate Heart sounds: S1 normal heart sound present and S2 normal heart sound present GI: Other: left side tenderness with minimal palpation Inspection: No distended Palpation (GI): Soft to palpation and Tenderness to palpation present (GI) Neuro: General: oriented to person and patient oriented x3 Extrem: Other: b/l leg edema Objective Data Active Medications Acetaminophen (Acetaminophen 325 Mg Tablet) 650 mg PO Q4H PRN PRN Reason: Fever Last Admin: 11/11/21 17:21 Dose: 650 mg Documented by: DEVONTE Heparin Sodium (Porcine) 50 (units/ Sodium Chloride 5 ml) 0 units IVFLUSH TID [facility] Last Admin: 11/19/21 08:24 Dose: 5 unit Documented by: ALEXANDRA Dextrose (Dextrose 50 % 25 Gm/50 Ml Vial) 25 gm IVPUSH Q15M PRN; Protocol PRN Reason: per Hypoglycemia Standing Ord. Dicyclomine HCl (Dicyclomine Hcl 10 Mg Capsule) 20 mg PO TIDAC [facility] Last Admin: 11/19/21 11:57 Dose: 20 mg Documented by: ALEXANDRA Famotidine (Famotidine/Pf 20 Mg/2 Ml Vial) 20 mg IVPUSH BID [facility] Last Admin: 11/19/21 08:22 Dose: 20 mg Documented by: ALEXANDRA Glucose (Glucose Gel 15 Gm Gel..Gram.) 15 gm PO Q15M PRN; Protocol PRN Reason: per Hypoglycemia Standing Ord. Hydrocortisone Sodium Succinate (Hydrocortisone Sod Succ/Pf 100 Mg Vial) 100 mg IVPUSH Q8H [facility] Last Admin: 11/19/21 08:23 Dose: 100 mg Documented by: ALEXANDRA Hydromorphone HCl (Hydromorphone Hcl 1 Mg/Ml Syringe) 1 mg IVPUSH Q4H PRN; Protocol PRN Reason: Pain, Severe (Pain Scale 7-10) Last Admin: 11/19/21 10:37 Dose: 1 mg Documented by: ALEXANDRA Potassium Phosphate (Kphos) 15 mmol in 250 mls @ 62.5 mls/hr IV ONCE ONE Stop: 11/19/21 12:44 Last Admin: 11/19/21 10:21 Dose: 62.5 mls/hr Documented by: ALEXANDRA Multivitamins 10 ml/ Trace Metals 1 ml/ Amino Acids/Electrolytes 720 mls @ 30 mls/hr IV DAILY@1800 [facility] Stop: 11/20/21 17:59 Insulin Human Lispro (Insulin Lispro 100 Unit/Ml 3 Ml Vial) [facility] Protocol Last Admin: 11/19/21 11:57 Dose: 2 unit Documented by: ALEXANDRA Loperamide HCl (Loperamide Hcl 2 Mg Capsule) 2 mg PO Q4H PRN PRN Reason: Diarrhea Nicotine Polacrilex (Nicotine Polacrilex 2 Mg Gum) 2 mg BUCCAL Q2H PRN PRN Reason: Nicotine Cravings Last Admin: 11/19/21 10:37 Dose: 2 mg Documented by: ALEXANDRA Ondansetron HCl (Ondansetron Hcl 4 Mg/2 Ml Vial) 4 mg IVPUSH Q8H PRN PRN Reason: Nausea and Vomiting Last Admin: 11/18/21 20:50 Dose: 4 mg Documented by: TUMASY Sodium Chloride (0.9 % Sodium Chloride Flush 3 Ml Syringe) 3 ml IVFLUSH [facility] Last Admin: 11/19/21 08:22 Dose: Not Given Documented by: ALEXANDRA Non-Admin Reason: IV Running Labs CBC & Chem 7: 11/19/21 08:01 11/19/21 05:55 Labs: Laboratory Results - last 24 hr 11/18/21 11/18/21 11/18/21 17:52 20:30 23:30 MCV MCH MCHC RDW Plt Count MPV Absolute Nucleated RBC Nucleated RBC % (auto) Anion Gap Estim Creat Clear Calc Estimated GFR POC Glucose 135 H 213 H Random Glucose Calcium Phosphorus Magnesium Albumin Triglycerides Stool Occult Blood POSITIVE C. difficile Tox B Gene 11/18/21 11/19/21 11/19/21 23:30 05:55 07:09 MCV MCH MCHC RDW Plt Count MPV Absolute Nucleated RBC Nucleated RBC % (auto) Anion Gap 15 Estim Creat Clear Calc 108.3 Estimated GFR > 60 POC Glucose 130 H Random Glucose 115 Calcium 7.6 L D Phosphorus 2.5 L Magnesium 1.6 Albumin 3.1 L D Triglycerides 86 Stool Occult Blood C. difficile Tox B Gene NEGATIVE 11/19/21 11/19/21 08:01 11:20 MCV 86.5 MCH 27.7 MCHC 32.0 RDW 16.6 H Plt Count 439 H MPV 9.5 Absolute Nucleated RBC 0.000 Nucleated RBC % (auto) 0.0 Anion Gap Estim Creat Clear Calc Estimated GFR POC Glucose 173 H Random Glucose Calcium Phosphorus Magnesium Albumin Triglycerides Stool Occult Blood C. difficile Tox B Gene Assessment and Plan (1) Acute blood loss anemia: Status: Acute (2) Crohn's colitis: Status: Acute (3) Hypokalemia: Status: Acute Plan 51-year-old male with a past medical history of Crohn's disease, tobacco dependence, history of MRSA skin infection presented to the hospital with a chief complaint of abdominal pain/? Nausea/vomiting / diarrhea/fever/ skin wounds.? Admitted for acute crohns flare? Acute Crohn's Colitis flare CT abdomen showed severe inflammation/possible partial SBO secondary to stricture Repeat abd CT 11/15 suggests no change to active crohns, still with partial obstruction cdif negative, stool wbc negative tolerating clear liquids with frequent use of antiemetics still with multiple episodes of diarrhea daily (pt reports baseline 6-8 x/day) started with bloody diarrhea overnight -PICC line placed 11/18, plan to start tpn today -prn imodium to decrease diarrhea -continue IV steroids -discussed with GI, plan for colonoscopy on Monday Acute blood loss anemia secondary to above crohns colitis rectal bleeding overnight and two more episodes this morning H/H dropped from 11.3/34.4 to 8.6/26.9 -stop DVT ppx -trend H/H -type and cross -repeat H/H this afternoon -transfuse as needed -colonoscopy Monday as above, likely sooner if bleeding persists Epigastric pain continue IV pepcid likely some degree of gastritis from steroids Hypokalemia/hypomangesemia/hypophosphatemia likely secondary to GI losses, decreased PO intake aggressive replacement hopefully starting TPN will help follow daily Anasarca edema improving slowly secondary to IV fluids and poor nutritional state s/p albumin Bradycardia episodes of HR in the 40's, asymptomatic tsh wnl EKG showing bradycardia monitor on telemetry if pt willing to keep monitor on possibly related to narcotic pain medication follow closely Right Buttock abscess Hx of MRSA infection? draining on admission Wound cx mixed magda, stop vancomycin Sepsis secondary to colitis vs right buttock abscess. Resolved met sepsis criteria with fever, tachycardia, leukocytosis continue to have borderline blood pressure; fever & leukocytosis resolved Hyponatremia. Resolved follow BMP Partial SBO Patient reports he has been moving Bowels and passing gas not requiring NGT having some nausea, no vomiting seen by general surgery Normocytic anemia no evidence of blood loss likely dilutional stool occult pending H/H stable Hypotension. improving Likely secondary to Hypovolemia from ongoing diarrhea not septic shock . asymptomatic albumin ordered Continue IV fluids Protein calorie malnutrition, moderate BMI 19.9, low albumin and low protein nutrition consult pending ensure added DVT prophylaxis:? Lovenox Code status:? Full code Attending Dr. Garay Patient requires continued hospitalization due to crohns flare, hypovolemia, abdominal pain requiring IV narcotics, IV steroids, electrolyte abnormalities, frequent use of antiemetics, acute GI bleeding and frequent monitoring of labs. Quality Stroke Does the patient have a stroke diagnosis?: No VTE Prior VTE?: No VTE Risk Level:: Medical - moderate - high VTE Device Contraindication: Treatment Not Indicated VTE Drug Contraindication: N/A - Med Ordered
[2021-11-19 12:39] LABS: Hematocrit 24.7 % (42.0-52.0); Hemoglobin 7.9 g/dl (14.0-18.0)
--- NOTE | 2021-11-19 12:40 | PM.GIPN ---
Subjective Subjective Date of Service: 11/19/21 Interval History: c/o rectal bleeding overnight Critical Care Time (minutes): 0 Physical Exam Vital Signs: Vital Signs: Last Vital Signs Temp 98.6 F 11/19/21 12:00 Pulse 87 11/19/21 12:00 Resp 17 11/19/21 12:00 BP 109/68 11/19/21 12:00 Pulse Ox 97 11/19/21 12:00 BMI result Body Mass Index 19.8 Const: Other: appears comfortable GI: Other: abdomen is soft, c/o l side pain with palpation Objective Data Labs CBC & Chem 7: 11/19/21 12:32 11/19/21 05:55 Procedures Date of Service Date of Service: 11/19/21 Progress Note: A&P Assessment and plan (1) Crohn's colitis: Status: Acute Assessment and Plan: Bentyl started to help with cramping. Colonoscopy planned for 11/22 to further evaluate rectal bleeding and gude therapy of Crohn's disease. Patient is aware of risks and benefits and agrees to proceed. Fall Risk Details Current Medications: Current Medications Acetaminophen (Acetaminophen 325 Mg Tablet) 650 mg PO Q4H PRN PRN Reason: Fever Last Admin: 11/11/21 17:21 Dose: 650 mg Documented by: Heparin Sodium (Porcine) 50 (units/ Sodium Chloride 5 ml) 0 units IVFLUSH TID [facility] Last Admin: 11/19/21 08:24 Dose: 5 unit Documented by: Dextrose (Dextrose 50 % 25 Gm/50 Ml Vial) 25 gm IVPUSH Q15M PRN; Protocol PRN Reason: per Hypoglycemia Standing Ord. Dicyclomine HCl (Dicyclomine Hcl 10 Mg Capsule) 20 mg PO TIDAC [facility] Last Admin: 11/19/21 11:57 Dose: 20 mg Documented by: Famotidine (Famotidine/Pf 20 Mg/2 Ml Vial) 20 mg IVPUSH BID [facility] Last Admin: 11/19/21 08:22 Dose: 20 mg Documented by: Glucose (Glucose Gel 15 Gm Gel..Gram.) 15 gm PO Q15M PRN; Protocol PRN Reason: per Hypoglycemia Standing Ord. Hydrocortisone Sodium Succinate (Hydrocortisone Sod Succ/Pf 100 Mg Vial) 100 mg IVPUSH Q8H [facility] Last Admin: 11/19/21 08:23 Dose: 100 mg Documented by: Hydromorphone HCl (Hydromorphone Hcl 1 Mg/Ml Syringe) 1 mg IVPUSH Q4H PRN; Protocol PRN Reason: Pain, Severe (Pain Scale 7-10) Last Admin: 11/19/21 10:37 Dose: 1 mg Documented by: Potassium Phosphate (Kphos) 15 mmol in 250 mls @ 62.5 mls/hr IV ONCE ONE Stop: 11/19/21 12:44 Last Admin: 11/19/21 10:21 Dose: 62.5 mls/hr Documented by: Multivitamins 10 ml/ Trace Metals 1 ml/ Amino Acids/Electrolytes 720 mls @ 30 mls/hr IV DAILY@1800 [facility] Stop: 11/20/21 17:59 Insulin Human Lispro (Insulin Lispro 100 Unit/Ml 3 Ml Vial) 0 unit SUBCUT QIDAS [facility]; Protocol Last Admin: 11/19/21 11:57 Dose: 2 unit Documented by: Loperamide HCl (Loperamide Hcl 2 Mg Capsule) 2 mg PO Q4H PRN PRN Reason: Diarrhea Nicotine Polacrilex (Nicotine Polacrilex 2 Mg Gum) 2 mg BUCCAL Q2H PRN PRN Reason: Nicotine Cravings Last Admin: 11/19/21 10:37 Dose: 2 mg Documented by: Ondansetron HCl (Ondansetron Hcl 4 Mg/2 Ml Vial) 4 mg IVPUSH Q8H PRN PRN Reason: Nausea and Vomiting Last Admin: 11/18/21 20:50 Dose: 4 mg Documented by: Sodium Chloride (0.9 % Sodium Chloride Flush 3 Ml Syringe) 3 ml IVFLUSH [facility] Last Admin: 11/19/21 08:22 Dose: Not Given Documented by: Time Spent With Patient Time: Total time spent is greater than 50% in coordination of care (as documented) at patient's floor/unit and/or counseling patient: Time with patient: 15 - 24 minutes Quality Stroke Does the patient have a stroke diagnosis?: No VTE Prior VTE?: No VTE Risk Level:: Medical - moderate - high VTE Device Contraindication: Treatment Not Indicated VTE Drug Contraindication: N/A - Med Ordered
--- NOTE | 2021-11-19 15:05 | PM.PNGS ---
Subjective Subjective Date of Service: 11/19/21 Interval history: Patient reports increased abdominal pain since yesterday. He underwent a PICC line placement and apparently got behind on his usual pain medication. He feels this is the reason for the increased abdominal pain. The abdominal pain is mainly fell on the left lower quadrant. He developed rectal bleeding and apparently filled the bowl with blood. He has been having diarrhea persistently but states this his usual. Physical Exam Vital Signs: Vital Signs: Last Vital Signs Temp 98.6 F 11/19/21 12:00 Pulse 87 11/19/21 12:00 Resp 17 11/19/21 12:00 BP 109/68 11/19/21 12:00 Pulse Ox 97 11/19/21 12:00 BMI result Body Mass Index 19.8 Const: General: ill appearing Nutritional Appearance: thin Orientation/consciousness: patient oriented x3 Limitations: no limitations HENMT: Head: Yes normocephalic and Yes atraumatic Eyes: Other: No jaundice Resp: Other: Breathing comfortably on room air, no respiratory distress GI: Other: Soft, tympanitic, tender mainly in the left lower quadrant without rebound or guarding. Bowel sounds are hyperactive. Skin: Other: Warm, dry, no rashes. Injection sites in the abdominal wall Neuro: General: patient oriented x3 Extrem: Other: No edema Objective Data Active Medications Acetaminophen (Acetaminophen 325 Mg Tablet) 650 mg PO Q4H PRN PRN Reason: Fever Last Admin: 11/11/21 17:21 Dose: 650 mg Documented by: DEVONTE Heparin Sodium (Porcine) 50 (units/ Sodium Chloride 5 ml) 0 units IVFLUSH TID [facility] Last Admin: 11/19/21 08:24 Dose: 5 unit Documented by: ALEXANDRA Dextrose (Dextrose 50 % 25 Gm/50 Ml Vial) 25 gm IVPUSH Q15M PRN; Protocol PRN Reason: per Hypoglycemia Standing Ord. Dicyclomine HCl (Dicyclomine Hcl 10 Mg Capsule) 20 mg PO TIDAC [facility] Last Admin: 11/19/21 11:57 Dose: 20 mg Documented by: ALEXANDRA Famotidine (Famotidine/Pf 20 Mg/2 Ml Vial) 20 mg IVPUSH BID [facility] Last Admin: 11/19/21 08:22 Dose: 20 mg Documented by: ALEXANDRA Glucose (Glucose Gel 15 Gm Gel..Gram.) 15 gm PO Q15M PRN; Protocol PRN Reason: per Hypoglycemia Standing Ord. Hydrocortisone Sodium Succinate (Hydrocortisone Sod Succ/Pf 100 Mg Vial) 100 mg IVPUSH Q8H [facility] Last Admin: 11/19/21 08:23 Dose: 100 mg Documented by: ALEXANDRA Hydromorphone HCl (Hydromorphone Hcl 1 Mg/Ml Syringe) 1 mg IVPUSH Q4H PRN; Protocol PRN Reason: Pain, Severe (Pain Scale 7-10) Last Admin: 11/19/21 10:37 Dose: 1 mg Documented by: ALEXANDRA Multivitamins 10 ml/ Trace Metals 1 ml/ Amino Acids/Electrolytes 720 mls @ 30 mls/hr IV DAILY@1800 [facility] Stop: 11/20/21 17:59 Insulin Human Lispro (Insulin Lispro 100 Unit/Ml 3 Ml Vial) 0 unit SUBCUT QIDACHS [facility]; Protocol Last Admin: 11/19/21 11:57 Dose: 2 unit Documented by: ALEXANDRA Loperamide HCl (Loperamide Hcl 2 Mg Capsule) 2 mg PO Q4H PRN PRN Reason: Diarrhea Nicotine Polacrilex (Nicotine Polacrilex 2 Mg Gum) 2 mg BUCCAL Q2H PRN PRN Reason: Nicotine Cravings Last Admin: 11/19/21 10:37 Dose: 2 mg Documented by: ALEXANDRA Ondansetron HCl (Ondansetron Hcl 4 Mg/2 Ml Vial) 4 mg IVPUSH Q8H PRN PRN Reason: Nausea and Vomiting Last Admin: 11/18/21 20:50 Dose: 4 mg Documented by: TUMASY Sodium Chloride (0.9 % Sodium Chloride Flush 3 Ml Syringe) 3 ml IVFLUSH QSHIFT [facility] Last Admin: 11/19/21 08:22 Dose: Not Given Documented by: ALEXANDRA Non-Admin Reason: IV Running Labs CBC & Chem 7: 11/19/21 12:32 11/19/21 05:55 Labs: Laboratory Results - last 24 hr 11/18/21 11/18/21 11/18/21 17:52 20:30 23:30 MCV MCH MCHC RDW Plt Count MPV Absolute Nucleated RBC Nucleated RBC % (auto) Anion Gap Estim Creat Clear Calc Estimated GFR POC Glucose 135 H 213 H Random Glucose Calcium Phosphorus Magnesium Albumin Triglycerides Stool Occult Blood POSITIVE C. difficile Tox B Gene Blood Type Antibody Screen Crossmatch 11/18/21 11/19/21 11/19/21 23:30 05:55 07:09 MCV MCH MCHC RDW Plt Count MPV Absolute Nucleated RBC Nucleated RBC % (auto) Anion Gap 15 Estim Creat Clear Calc 108.3 Estimated GFR > 60 POC Glucose 130 H Random Glucose 115 Calcium 7.6 L D Phosphorus 2.5 L Magnesium 1.6 Albumin 3.1 L D Triglycerides 86 Stool Occult Blood C. difficile Tox B Gene NEGATIVE Blood Type Antibody Screen Crossmatch 11/19/21 11/19/21 11/19/21 08:01 11:20 12:32 MCV 86.5 MCH 27.7 MCHC 32.0 RDW 16.6 H Plt Count 439 H MPV 9.5 Absolute Nucleated RBC 0.000 Nucleated RBC % (auto) 0.0 Anion Gap Estim Creat Clear Calc Estimated GFR POC Glucose 173 H Random Glucose Calcium Phosphorus Magnesium Albumin Triglycerides Stool Occult Blood C. difficile Tox B Gene Blood Type B Positive Antibody Screen NEGATIVE Crossmatch See Detail Procedures Date of Service Date of Service: 11/19/21 Progress Note: A&P Assessment and plan (1) Acute blood loss anemia: Status: Acute (2) Crohn's disease: Status: Acute Plan Patients abdominal pain is colicky in nature and mainly located in left lower quadrant. He has been having loose stool but feels this is closer to his usual. He feels the increased pain is due to missing pain doses yesterday. Examination today reveals an abdomen which is soft but tender in the left lower quadrant, no peritoneal signs are appreciated. Patient has been evaluated by Dr. Palm and plans are made for colonoscopy on Monday. Will await these results. Fall Risk Details Current Medications: Current Medications Acetaminophen (Acetaminophen 325 Mg Tablet) 650 mg PO Q4H PRN PRN Reason: Fever Last Admin: 11/11/21 17:21 Dose: 650 mg Documented by: Heparin Sodium (Porcine) 50 (units/ Sodium Chloride 5 ml) 0 units IVFLUSH TID [facility] Last Admin: 11/19/21 08:24 Dose: 5 unit Documented by: Dextrose (Dextrose 50 % 25 Gm/50 Ml Vial) 25 gm IVPUSH Q15M PRN; Protocol PRN Reason: per Hypoglycemia Standing Ord. Dicyclomine HCl (Dicyclomine Hcl 10 Mg Capsule) 20 mg PO TIDAC [facility] Last Admin: 11/19/21 11:57 Dose: 20 mg Documented by: Famotidine (Famotidine/Pf 20 Mg/2 Ml Vial) 20 mg IVPUSH BID [facility] Last Admin: 11/19/21 08:22 Dose: 20 mg Documented by: Glucose (Glucose Gel 15 Gm Gel..Gram.) 15 gm PO Q15M PRN; Protocol PRN Reason: per Hypoglycemia Standing Ord. Hydrocortisone Sodium Succinate (Hydrocortisone Sod Succ/Pf 100 Mg Vial) 100 mg IVPUSH Q8H [facility] Last Admin: 11/19/21 08:23 Dose: 100 mg Documented by: Hydromorphone HCl (Hydromorphone Hcl 1 Mg/Ml Syringe) 1 mg IVPUSH Q4H PRN; Protocol PRN Reason: Pain, Severe (Pain Scale 7-10) Last Admin: 11/19/21 10:37 Dose: 1 mg Documented by: Multivitamins 10 ml/ Trace Metals 1 ml/ Amino Acids/Electrolytes 720 mls @ 30 mls/hr IV DAILY@1800 [facility] Stop: 11/20/21 17:59 Insulin Human Lispro (Insulin Lispro 100 Unit/Ml 3 Ml Vial) 0 unit SUBCUT QIDACHS [facility]; Protocol Last Admin: 11/19/21 11:57 Dose: 2 unit Documented by: Loperamide HCl (Loperamide Hcl 2 Mg Capsule) 2 mg PO Q4H PRN PRN Reason: Diarrhea Nicotine Polacrilex (Nicotine Polacrilex 2 Mg Gum) 2 mg BUCCAL Q2H PRN PRN Reason: Nicotine Cravings Last Admin: 11/19/21 10:37 Dose: 2 mg Documented by: Ondansetron HCl (Ondansetron Hcl 4 Mg/2 Ml Vial) 4 mg IVPUSH Q8H PRN PRN Reason: Nausea and Vomiting Last Admin: 11/18/21 20:50 Dose: 4 mg Documented by: Sodium Chloride (0.9 % Sodium Chloride Flush 3 Ml Syringe) 3 ml IVFLUSH QSHIFT [facility] Last Admin: 11/19/21 08:22 Dose: Not Given Documented by: Time Spent With Patient Time: Total time spent is greater than 50% in coordination of care (as documented) at patient's floor/unit and/or counseling patient: Time with patient: 15 - 24 minutes Quality Stroke Does the patient have a stroke diagnosis?: No VTE Prior VTE?: No VTE Risk Level:: Medical - moderate - high VTE Device Contraindication: Treatment Not Indicated VTE Drug Contraindication: N/A - Med Ordered
--- NOTE | 2021-11-19 15:45 | PC.NURSE ---
The patient has units of blood due but has not been given because the PA suggested that the patient be taken for scan before transmitting the blood. The blood transfusion is still pending as per now, as the patient is still downstairs for the scan.
[2021-11-19 16:59] LABS: Glucose, Whole Blood 118 mg/dL (60-115)
[2021-11-19] MEDS: 0.9 % Sodium Chloride Flush 3 ML SYRINGE IVFLUSH (17:08)
--- NOTE | 2021-11-19 18:41 | P.PNGI_ITS ---
Subjective Subjective Date of Service: 11/19/21 Interval History: Pt reports rectal bleeding last night approx 2 pints of blood. Has had 9-10 BMs today consisting of BRPPR. Denies change in abdominal pain. Has been taking a clear liquid diet with some postprandial pain and has been reluctant to advanced to a full liquid diet Critical Care Time (minutes): 20 Physical Exam Vital Signs: Vital Signs: Last Vital Signs Temp 98.8 F 11/19/21 18:30 Pulse 70 11/19/21 18:30 Resp 18 11/19/21 18:30 BP 92/55 L 11/19/21 18:30 Pulse Ox 98 11/19/21 17:43 BMI result Body Mass Index 19.8 Const: General: no acute distress, ill appearing, tired appearing and other (pale) Nutritional Appearance: underweight Orientation/consciousness: patient oriented x3 Limitations: no limitations HENMT: Head: Yes normal to inspection Ears: hearing grossly normal bilaterally Mouth: Normal oral and palatal mucosa present Eyes: Sclerae: sclerae normal Pupils: Equal, round and reactive pupils present Neck: Neck: Yes normal visual inspection Chest: Chest palpation & inspection: normal inspection of the chest Resp: Effort & Inspection: normal respiratory effort Auscultation: clear to auscultation bilaterally Cardio: Palpation: normal PMI Rate: regular rate Rhythm: regular rhythm Heart sounds: S1 normal heart sound present, S2 normal heart sound present and no murmurs GI: Palpation (GI): Soft to palpation, Tenderness to palpation present (GI) (Mild to moderate LLQ and RLQ tenderness without rebound) and No hepatosplenomegaly present Auscultation: normal bowel sounds Rectal Exam - Male: Yes deferred Skin: General skin exam: no rashes or lesions noted Neuro: General: patient oriented x3, gait normal and moves all extremities Cranial nerves: Yes Equal, round and reactive pupils present Extrem: General: Yes pedal edema (2+ pitting edema bilaterally) Psych: Appearance: disheveled Mental Status: mental status grossly normal Objective Data Labs CBC & Chem 7: 11/19/21 12:32 11/19/21 05:55 Labs: Laboratory Results - last 24 hr 11/18/21 11/18/21 11/18/21 20:30 22:42 23:30 WBC RBC Hgb 9.1 L Hct 28.2 L MCV MCH MCHC RDW Plt Count MPV Absolute Nucleated RBC Nucleated RBC % (auto) Sodium Potassium Chloride Carbon Dioxide Anion Gap BUN Creatinine Estim Creat Clear Calc Estimated GFR POC Glucose 213 H Random Glucose Calcium Phosphorus Magnesium Albumin Triglycerides Stool Occult Blood POSITIVE C. difficile Tox B Gene Blood Type Antibody Screen Crossmatch 11/18/21 11/19/21 11/19/21 23:30 05:55 07:09 WBC RBC Hgb Hct MCV MCH MCHC RDW Plt Count MPV Absolute Nucleated RBC Nucleated RBC % (auto) Sodium 140 Potassium 2.8 L Chloride 84 L Carbon Dioxide 44 H* Anion Gap 15 BUN 6 L Creatinine 0.65 Estim Creat Clear Calc 108.3 Estimated GFR > 60 POC Glucose 130 H Random Glucose 115 Calcium 7.6 L D Phosphorus 2.5 L Magnesium 1.6 Albumin 3.1 L D Triglycerides 86 Stool Occult Blood C. difficile Tox B Gene NEGATIVE Blood Type Antibody Screen Crossmatch 11/19/21 11/19/21 11/19/21 08:01 11:20 12:32 WBC 10.8 RBC 3.11 L D Hgb 8.6 L 7.9 L Hct 26.9 L 24.7 L MCV 86.5 MCH 27.7 MCHC 32.0 RDW 16.6 H Plt Count 439 H MPV 9.5 Absolute Nucleated RBC 0.000 Nucleated RBC % (auto) 0.0 Sodium Potassium Chloride Carbon Dioxide Anion Gap BUN Creatinine Estim Creat Clear Calc Estimated GFR POC Glucose 173 H Random Glucose Calcium Phosphorus Magnesium Albumin Triglycerides Stool Occult Blood C. difficile Tox B Gene Blood Type Antibody Screen Crossmatch 11/19/21 11/19/21 12:32 16:54 WBC RBC Hgb Hct MCV MCH MCHC RDW Plt Count MPV Absolute Nucleated RBC Nucleated RBC % (auto) Sodium Potassium Chloride Carbon Dioxide Anion Gap BUN Creatinine Estim Creat Clear Calc Estimated GFR POC Glucose 118 H Random Glucose Calcium Phosphorus Magnesium Albumin Triglycerides Stool Occult Blood C. difficile Tox B Gene Blood Type B Positive Antibody Screen NEGATIVE Crossmatch See Detail Microbiology Microbiology Results: Microbiology 11/10/21 01:58 Blood - Venous Blood Culture - Final No growth after 5 days. 11/10/21 01:58 Blood - Venous Blood Culture - Final No growth after 5 days. 11/10/21 10:23 Stool Stool Culture - Final 11/10/21 01:58 Abscess Ischiorectal Gram Stain - Final 11/10/21 01:58 Abscess Ischiorectal Routine Culture - Final Procedures Date of Service Date of Service: 11/19/21 Progress Note: A&P Assessment and plan (1) Crohn's disease: Status: Acute (2) Hematochezia: Status: Acute Plan Pt with Crohn's disease status post Ileo-colectomy in 1985 admitted with Crohn's disease flare. Hospital course has been complicated by hematochezia since last night. H & H dropped from 9.1/28.2 yesterday to 8.6/26.9 this morning and 7.1/24.7 this afternoon GI Bleeding scan this afternoon showed gastrointestinal bleeding is visualized originating in the hepatic flexure of the large bowel as described above. LGI bleeding can be diverticular versus from deep CD ulcer penetrating into a blood vessel. RECOMMENDATIONS: 1. Transfuse 2 units of PRBC and recheck H & H post transfusion. Monitor H & H every 4-6 hrly 2. Pt needs urgent angiography with embolization to control the bleeding. He will need to be transferred to a tertiary care hospital - [facility] was contacted by LOREN Cook and no beds available. If pt cannot be transferred due to lack of bed availability, then transfer to ICU for close monitoring. Fall Risk Details Current Medications: Current Medications Acetaminophen (Acetaminophen 325 Mg Tablet) 650 mg PO Q4H PRN PRN Reason: Fever Last Admin: 11/11/21 17:21 Dose: 650 mg Documented by: Heparin Sodium (Porcine) 50 (units/ Sodium Chloride 5 ml) 0 units IVFLUSH TID [facility] Last Admin: 11/19/21 17:08 Dose: 50 unit Documented by: Dextrose (Dextrose 50 % 25 Gm/50 Ml Vial) 25 gm IVPUSH Q15M PRN; Protocol PRN Reason: per Hypoglycemia Standing Ord. Dicyclomine HCl (Dicyclomine Hcl 10 Mg Capsule) 20 mg PO TIDAC [facility] Last Admin: 11/19/21 17:08 Dose: 20 mg Documented by: Famotidine (Famotidine/Pf 20 Mg/2 Ml Vial) 20 mg IVPUSH BID [facility] Last Admin: 11/19/21 08:22 Dose: 20 mg Documented by: Glucose (Glucose Gel 15 Gm Gel..Gram.) 15 gm PO Q15M PRN; Protocol PRN Reason: per Hypoglycemia Standing Ord. Hydrocortisone Sodium Succinate (Hydrocortisone Sod Succ/Pf 100 Mg Vial) 100 mg IVPUSH Q8H [facility] Last Admin: 11/19/21 17:08 Dose: 100 mg Documented by: Hydromorphone HCl (Hydromorphone Hcl 1 Mg/Ml Syringe) 1 mg IVPUSH Q4H PRN; Protocol PRN Reason: Pain, Severe (Pain Scale 7-10) Last Admin: 11/19/21 17:07 Dose: 1 mg Documented by: Multivitamins 10 ml/ Trace Metals 1 ml/ Amino Acids/Electrolytes 720 mls @ 30 mls/hr IV DAILY@1800 [facility] Stop: 11/20/21 17:59 Insulin Human Lispro (Insulin Lispro 100 Unit/Ml 3 Ml Vial) 0 unit SUBCUT QIDACHS [facility]; Protocol Last Admin: 11/19/21 17:09 Dose: Not Given Documented by: Loperamide HCl (Loperamide Hcl 2 Mg Capsule) 2 mg PO Q4H PRN PRN Reason: Diarrhea Nicotine Polacrilex (Nicotine Polacrilex 2 Mg Gum) 2 mg BUCCAL Q2H PRN PRN Reason: Nicotine Cravings Last Admin: 11/19/21 17:08 Dose: 2 mg Documented by: Ondansetron HCl (Ondansetron Hcl 4 Mg/2 Ml Vial) 4 mg IVPUSH Q8H PRN PRN Reason: Nausea and Vomiting Last Admin: 11/18/21 20:50 Dose: 4 mg Documented by: Sodium Chloride (0.9 % Sodium Chloride Flush 3 Ml Syringe) 3 ml IVFLUSH [facility] Last Admin: 11/19/21 17:08 Dose: 3 ml Documented by: Time Spent With Patient Time: Total time spent is greater than 50% in coordination of care (as documented) at patient's floor/unit and/or counseling patient: Time with patient: 15 - 24 minutes Quality Stroke Does the patient have a stroke diagnosis?: No VTE Prior VTE?: No VTE Risk Level:: Medical - moderate - high VTE Device Contraindication: Treatment Not Indicated VTE Drug Contraindication: N/A - Med Ordered
--- NOTE | 2021-11-19 19:03 | P.DS_ITS ---
DS: Providers Provider Date of Service: 11/19/21 Date of admission: 11/10/21 06:06 Date of discharge: 11/19/21 Primary care physician: Adam Garay MD Consults: 11/10/21 06:06 Consult to Gastroenterology Routine Consulting Provider: Srinivasan Gonzales Reason for consultation: crohns flare; Pancreatic duct is noted to be mildly dilated. Consult to General Surgery Routine Consulting Provider: Adi Tello Reason for consultation: Partial SBO Consult to Infectious Diseases Routine Consulting Provider: Zena Henrandez Reason for consultation: skin wounds; fever; abd pain Attending physician on discharge: Sanjay Garay Discharging clinician: Puja Medel DS: Diagnosis Discharge Diagnosis (1) Crohn's disease: Status: Acute (2) Hematochezia: Status: Acute (3) Acute blood loss anemia: Status: Acute (4) Hypokalemia: Status: Acute DS: Summary Hospital Course Hospital Course: From H&P on day of admission 51-year-old male with a past medical history of Crohn's disease, tobacco dependence, history of MRSA skin infection presented to the hospital with a chief complaint of abdominal pain.? Patient reports that he has been having abdominal pain for the past 2 months; but for the past 1 week the abdominal pain has been worsening.? Mentioned that he is also having nausea vomiting and diarrhea.? Says he is unable to keep anything down.? Abdominal pain is located more so on the left side.? Sharp in nature. Also reports he has some blood in his stools; but less than prior episodes of Crohn's flare.? Mentions that he follows with sales operations consultant at [facility]-has not seen him in 2 years.? Also mentioned patient has been seen his PCP in few years.? ?patient also reports that he has the skin wound on his left breast which is healing; there is a 2nd skin wound on his right buttock with pus discharge.? Patient reports over the past couple days he has been having fevers.? Denies any cough or sputum production.? Denies any urinary symptoms.? Patient denies any chest pain or palpitations.? Review of all other systems is negative except mentioned above ER course: Per ER team patient noted to have right buttock wound with small pus like discharge; abdominal was tender diffusely; no guarding no rigidity; CT abdomen was done which showed severe inflammation and possible partial SBO.? Also noted to have mildly dilated pancreatic duct. ? patient was given empiric antibi otics.? Admitted to the hospital for further management Hospital Course by problem: Acute blood loss anemia. Patient developed rectal bleeding in the academic advisement director of 11/19. He had multiple other episodes of bright red blood per rectum throughout the day. He underwent nuclear medicine bleeding scan which was positive for GI bleeding visualized originating in the hepatic flexure of the large bowel. His H/H dropped from 11.3/34.4 to 7.9/24.7. Blood pressure dropped to the high 80s. Patient not tachycardic at this time. 2 units of blood were ordered and are transfusing at this time. Call was placed to GI who recommended transfer to tertiary care facility for likely embolization. Acute Crohn's Colitis flare CT abdomen showed severe inflammation/possible partial SBO secondary to strictu re. He was started on bowel rest and systemic steroids. He required high doses of pain medication. His diet was unable to be advanced. Repeat abd CT 11/15 suggests no change active crohns, still with partial obstruction. He was seen in consultation by GI who agreed with systemic steroids. He was seen in consultation by surgery who did not feel that he needed any urgent surgical intervention. He was having numerous episodes of diarrhea daily, cdif was check and was negative, stool wbc negative. He has been able to tolerate clear liquids with frequent use of antiemetics. Due to several days without food and ongoing diarrhea, his potassium, magnesium and phosphorus have been low and have required frequent and aggressive repletion. PICC line placed was placed 11/18, TPN was started today. He is continued on systemic IV steroids. Initially was planned to have colonoscopy this coming Monday. Anasarca. Patient has been receiving IVF since admission and edema likely secondary to IV fluids and poor nutritional state. He was treated with IV albumin with some improvement in his edema. Bradycardia. Patient had episodes of HR in the 40's, he remained asymptomatic, tsh wnl. EKG showing bradycardia, no heart blocks. Right Buttock abscess, draining on admission. Wound cx mixed magda, initially treated with IV vancomycin, wound culture returned with mixed magda and did not have any evidence of deeper infection therefore antibiotics were discontinued Sepsis secondary to colitis. The patient initially met sepsis criteria on admission likely related to underlying colitis Partial SBO. Has been moving his bowel and passing gas. Did not require NGT seen by general surgery who did not feel that he needed any surgical intervention. Protein calorie malnutrition, moderate. BMI 19.9, low albumin and low protein Time Spent with Patient Time attestation: Total time spent providing and/or coordinating discharge services: Discharge coordination time: Greater than 30 minutes Quality: Stroke Does the patient have a stroke diagnosis?: No Physical Exam Vital Signs: Vital Signs: Last Vital Signs Temp 98.8 F 11/19/21 18:30 Pulse 70 11/19/21 18:30 Resp 18 11/19/21 18:30 BP 92/55 L 11/19/21 18:30 Pulse Ox 98 11/19/21 17:43 BMI result Body Mass Index 19.8 Const: Other: appears uncomfortable General: cooperative, alert, awake and ill appearing Nutritional Appearance: thin Orientation/consciousness: oriented to person and patient oriented x3 Resp: Effort & Inspection: normal respiratory effort and able to speak in complete sentences Cardio: Rate: regular rate Heart sounds: S1 normal heart sound present and S2 normal heart sound present GI: Other: left side tenderness with minimal palpation Inspection: No distended Palpation (GI): Soft to palpation and Tenderness to palpation present (GI) Neuro: General: oriented to person and patient oriented x3 Extrem: Other: b/l leg edema DS: Data Data Completed and Pending Completed studies during hospitalization [Text1]: Date of Service: 11/15/21 Procedure(s): CT abdomen pelvis w con IMPRESSION: Long segment of thick-walled distal small bowel with prominent vasa recta and some stranding and fluid in the small bowel mesentery suggestive of active Crohn's disease. There is dilatation of the more proximal small bowel suggestive of mild partial small bowel obstruction. This is similar to 11/10/2021 exam. No evidence of complete obstruction with oral contrast seen in the colon. Small amount of fluid in the pelvis. Right renal cyst. Previously identified central right renal stone no longer seen. Date of Service: 11/19/21 Procedure(s): NM GI bleeding EXAMINATION: NM TC RBC GI BLEEDING IMPRESSION: Gastrointestinal bleeding is visualized originating in the hepatic flexure of the large bowel as described above. Labs on day of discharge: Laboratory Results - last 24 hr 11/18/21 11/18/21 11/18/21 20:30 22:42 23:30 WBC RBC Hgb 9.1 L Hct 28.2 L MCV MCH MCHC RDW Plt Count MPV Absolute Nucleated RBC Nucleated RBC % (auto) Sodium Potassium Chloride Carbon Dioxide Anion Gap BUN Creatinine Estim Creat Clear Calc Estimated GFR POC Glucose 213 H Random Glucose Calcium Phosphorus Magnesium Albumin Triglycerides Stool Occult Blood POSITIVE C. difficile Tox B Gene Blood Type Antibody Screen Crossmatch 11/18/21 11/19/21 11/19/21 23:30 05:55 07:09 WBC RBC Hgb Hct MCV MCH MCHC RDW Plt Count MPV Absolute Nucleated RBC Nucleated RBC % (auto) Sodium 140 Potassium 2.8 L Chloride 84 L Carbon Dioxide 44 H* Anion Gap 15 BUN 6 L Creatinine 0.65 Estim Creat Clear Calc 108.3 Estimated GFR > 60 POC Glucose 130 H Random Glucose 115 Calcium 7.6 L D Phosphorus 2.5 L Magnesium 1.6 Albumin 3.1 L D Triglycerides 86 Stool Occult Blood C. difficile Tox B Gene NEGATIVE Blood Type Antibody Screen Crossmatch 11/19/21 11/19/21 11/19/21 08:01 11:20 12:32 WBC 10.8 RBC 3.11 L D Hgb 8.6 L 7.9 L Hct 26.9 L 24.7 L MCV 86.5 MCH 27.7 MCHC 32.0 RDW 16.6 H Plt Count 439 H MPV 9.5 Absolute Nucleated RBC 0.000 Nucleated RBC % (auto) 0.0 Sodium Potassium Chloride Carbon Dioxide Anion Gap BUN Creatinine Estim Creat Clear Calc Estimated GFR POC Glucose 173 H Random Glucose Calcium Phosphorus Magnesium Albumin Triglycerides Stool Occult Blood C. difficile Tox B Gene Blood Type Antibody Screen Crossmatch 11/19/21 11/19/21 12:32 16:54 WBC RBC Hgb Hct MCV MCH MCHC RDW Plt Count MPV Absolute Nucleated RBC Nucleated RBC % (auto) Sodium Potassium Chloride Carbon Dioxide Anion Gap BUN Creatinine Estim Creat Clear Calc Estimated GFR POC Glucose 118 H Random Glucose Calcium Phosphorus Magnesium Albumin Triglycerides Stool Occult Blood C. difficile Tox B Gene Blood Type B Positive Antibody Screen NEGATIVE Crossmatch See Detail Discharge Plan Discharge Patient Disposition: Xfer Acute Care Hospital Discharge Diagnosis: Acute GI bleeding crohns colitis electrolyte abnormalities Referrals: Adam Garay MD [Primary Care Provider] - 1 Week Discharge Medications: New Solu-Cortef Act-O-Vial (PF) 100 mg/2 mL Recon Soln 100 mg IVPUSH Q8H Qty: 1 0RF Discontinued diphenoxylate-atropine 2.5-0.025 mg tablet 1 tab PO QID PRN (Reason: diarrhea) 0RF promethazine 25 mg tablet 1 tab PO Q6H 0RF Discharge Orders: Discharge Order (Routine); Ordered 11/19/21 Ordered By: Abiodun Florez Diet: other Activity on Discharge: As tolerated Stand Alone Forms: Patient Portal Discharge page Care Plan Goals: see below Health Concerns: Acute lower GI bleeding Crohn's colitis Electrolyte abnormalities Plan of Treatment: Transfer to tertiary care facility for possible embolization Assessment: See discharge summary Discharge Date/Time: 11/19/21 21:00
[2021-11-19 19:10] LABS: Hematocrit 21.3 % (42.0-52.0)
[2021-11-19 19:27] LABS: Hemoglobin 6.8 g/dl (14.0-18.0)
[2021-11-19 20:12] LABS: Anion Gap 15 (12-20); Blood Urea Nitrogen 8 mg/dL (9-16); Carbon Dioxide 41 mmol/L (22-29); Chloride 84 mmol/L (96-108); Creatinine Clr Calc Pharmacy 86.9; Estimated Glomerular Filt Rate > 60; Glucose Random 202 mg/dL (60-115); Magnesium 1.7 mg/dL (1.6-2.6); Phosphorus 3.1 mg/dL (2.7-4.5); Potassium 2.2 mmol/L (3.3-5.1); Sodium 138 mmol/L (135-145)
[2021-11-19 21:27] LABS: Glucose, Whole Blood 177 mg/dL (60-115)
--- NOTE | 2021-11-20 23:41 | PC.NURSE ---
late entry. 11/19/21 1900. during report from previous shift was told of pt trasfer to [facility] and blood just hang, when contacting icu, was told that pt now going to [facility]. as pt transfer being arranged, h&h critically low. as emt arrives, blood still runing with half the bag still goning in. pt d/c'd to [facility] with blood bag and equipment monitor phototypesetting(emt's) and all pt belonging
== END 2021-11-19 21:00 | disposition short-term general hospital (02) | DRG 872 ==
LOC: HO.ED 05:41 → HO.EDOVER 06:13 → HO.S3 11:14 → HO.EDOVER 11:25 → HO.S3 11-11 13:46 → HO.ICU 11-19 18:50 → HO.S3 11-19 19:45
PROVIDERS: Family Medicine; Internal Medicine; Internal Medicine Gastroenterology; Nurse Practitioner Acute Care; Radiology Diagnostic Radiology; Admitting Provider Hospitalist; Emergency Provider Internal Medicine; PCP Internal Medicine Gastroenterology; Visit Provider Physician Assistant Medical
DX: A41.9 Sepsis, unspecified organism (principal); K50.812 Crohn's disease of both small and large intestine with intestinal obstruction; E44.0 Moderate protein-calorie malnutrition; Z68.1 Body mass index [BMI] 19.9 or less, adult; D62 Acute posthemorrhagic anemia; K50.811 Crohn's disease of both small and large intestine with rectal bleeding; L02.32 Furuncle of buttock; F17.210 Nicotine dependence, cigarettes, uncomplicated; E87.6 Hypokalemia; E83.42 Hypomagnesemia; D64.9 Anemia, unspecified; I95.9 Hypotension, unspecified; R00.1 Bradycardia, unspecified; R60.1 Generalized edema; Z71.6 Tobacco abuse counseling; Z20.822 Contact with and (suspected) exposure to COVID-19; Z86.14 Personal history of Methicillin resistant Staphylococcus aureus infection; Z80.0 Family history of malignant neoplasm of digestive organs; Z88.6 Allergy status to analgesic agent; Z79.899 Other long term (current) drug therapy
CPT/HCPCS: 36410; 36415; 36573; 71045; 74177; 78278; 80048; 80053; 80202; 81001; 82040; 82272; 82947; 83605; 83690; 83735; 83993; 84100; 84443; 84478; 85014; 85018; 85025; 85027; 85652; 86140; 86850; 86900; 86901; 86923; 87040; 87045; 87046; 87071; 87177; 87205; 87209; 87493; 87635; 89055; 93005; 99285; A9560; C1751; J1170; J1642; J1650; J2270; J2405; J2543; J3370; J3475; P9016; P9047; Q9967

== ENCOUNTER 2024-11-10 09:26 | Emergency (ER) | payer MEDICARE, MEDICAID, SELFPAY ==
--- NOTE | ~2024-11-10 | CT_ITS ---
CLINICAL HISTORY: L flank pain CT abdomen and pelvis without contrast Comparison: CT/HI - CT ABDOMEN PELVIS W CON - 11/15/21 14:33 EST Findings: The lung bases are clear. The unenhanced liver, gallbladder, spleen, adrenal glands and pancreas are unremarkable. There is a 2 mm upper pole left renal calculus. No hydronephrosis bilaterally. The bladder is decompressed. No bowel obstruction or free air. No pneumatosis or portal venous gas. Moderate atherosclerotic disease. No acute osseous finding. Disc space narrowing most pronounced at L5-S1. Impression: There is a 2 mm nonobstructing left renal calculus. No hydronephrosis bilaterally. No definite acute process by CT This document has been electronically signed by: Candido Liu MD on 11/10/2024 11:11:58
[2024-11-10 09:33] VITALS: BP 140/90; PULSE 86; O2SAT 98
[2024-11-10 09:37] VITALS: BP 149/92; PULSE 82; RESP 16; TEMP 36.8; O2SAT 98; BMI 25.8
--- NOTE | 2024-11-10 10:30 | ED.GENADULT ---
HPI - General Adult General Chief complaint: Abdominal Pain Stated complaint: L SIDED FLANK PAIN Time Seen by Provider: 11/10/24 10:30 Source: patient and EMS Mode of arrival: EMS Limitations: no limitations History of Present Illness ED Provider: LOREN Nunez HPI narrative: This is a 54-year-old male history of Crohn's colitis, pancreatic duct dilation, kidney stones presenting to the emergency department with sudden onset left flank pain, nausea, vomiting all of which started last night. He reports he has a longstanding history of kidney stones and this feels like his typical stone. Last time he had stone was 5 years ago and they told him that he had a very large left-sided kidney stone that would not move on its own. He denies undergoing any surgical procedures for this. He reports he feels unwell. Typically he gets hematuria however this time he has not noted any blood in his urine. He feels overall unwell. Denies fevers, chills, chest pain, shortness of breath, headache, vision changes, dizziness, weakness, diarrhea, abdominal pain. Related Data Previous Rx's ?Medication ?Instructions ?Recorded hydrocortisone sod succ (PF) 100 100 mg (2 mL) IVPUSH Q8H #1 ea 11/19/ mg/2 mL solution for injection (Solu-Cortef Act-O-Vial (PF)) ondansetron 4 mg disintegrating 4 mg PO Q8H PRN nausea and 11/10/24 tablet vomiting #20 tabs prednisone 20 mg tablet 40 mg (2 x 20 mg) PO DAILY #10 tabs 11/10/24 Allergies Allergy/AdvReac Type Severity Reaction Status Date / Time NSAIDS (Non-Steroidal Allergy Intermediate DIARRHEA Verified 11/10/24 09:40 Anti-Inflamma [NSAIDS (NON-STEROIDAL ANTI-INFLAMMA] Review of Systems Review of Systems: Yes all other systems are reviewed and are negative PMFSH Past Medical History Attestation statement: The following information was validated with the patient. Source: old records reviewed and nursing notes reviewed Medical History Crohn's disease Fever Social History Social History Household Members: Significant Other Housing: Apartment Do you presently have visiting nurse or other home services: No Alcohol intake: former Patient Tobacco Use Status: Current everyday Tobacco user Tobacco use type: Cigarette Cigarette Packs Per Day: 0.5 Cigarettes Per Day: 10.0 e-Cigarette/Vaping Use: Currently Using Advance Directives: No Advance Directives Information Provided: No service: No Current occupational status: disabled Physical Exam ED Vital Signs: Vital Signs - 24 hr 11/10/24 09:37 11/10/24 11:45 11/10/24 15:50 Temperature 98.2 F 98.2 F 97.8 F Pulse Rate 82 89 94 Respiratory Rate 16 16 16 Blood Pressure 149/92 H 146/81 H 115/75 Pulse Oximetry 98 97 96 Oxygen Delivery Method Room Air Room Air Room Air BMI result Body Mass Index 25.8 vss Appearance: Alert.? Oriented X3.? No acute distress.? Head: Normocephalic, atraumatic, no step-offs or deformities Eyes: Pupils equal, round and reactive to light.? ENT: Pharynx normal.? Neck: Normal inspection.? Neck supple.? CVS: Normal heart rate and rhythm.? Pulses normal.? Respiratory: No respiratory distress.? Breath sounds normal.? Abdomen: Soft and nontender.? Skin: Skin warm and dry.? Normal skin color.? Normal skin turgor.? Extremities: No lower extremity edema.? No calf ttp. 5/5 strength to bilateral upper and lower extremities Back: + Left sided CVAT Neuro: Oriented X 3.? No motor deficit.? No sensory deficit. CN 2-12 intact Course Reevaluation(s) Reevaluation #1: CBC unremarkable. Chemistry no acute findings eating intervention. Mild elevation in BUN and creatinine. UA no acute findings. Time: 11:45 Reevaluation #2: 2 mm nonobstructing left renal calculi no hydronephrosis bilaterally. Seen on CT. Time: 12:30 Reevaluation #3: Patient is still in pain. Time: 14:00 Additional Reevaluation(s): Sign out to Kelby WYATT 16:08 Patient re-evaluated, he was resting comfortably, he reports his nausea has improved greatly, his pain is there but mild. We will discharge the patient with a short course of prednisone and Zofran due to his history of Crohn's. I encouraged him to follow up with his GI doc Medications Administered Discontinued Medications Generic Name Dose Route Start Last Admin Trade Name Freq PRN Reason Stop Dose Admin Sodium Chloride 1,000 mls @ 999 mls/hr 11/10/24 10:30 11/10/24 13:27 Ns IV 11/10/24 11:30 Infused .Q1H1M FRANK Infusion Sodium Chloride 1,000 mls @ 999 mls/hr 11/10/24 11:45 11/10/24 13:27 Ns IV 11/10/24 12:45 Infused .Q1H1M FRANK Infusion Ketorolac Tromethamine 30 mg 11/10/24 10:29 11/10/24 11:10 Ketorolac Tromethamine 15 Mg/Ml Vial IVPUSH 11/10/24 10:30 Not Given ONCE ONE Morphine Sulfate 4 mg 11/10/24 11:35 11/10/24 11:44 Morphine Sulfate 4 Mg/Ml Cartridge IVPUSH 11/10/24 11:36 4 mg ONCE ONE Administration Protocol Morphine Sulfate 4 mg 11/10/24 16:42 11/10/24 16:56 Morphine Sulfate 4 Mg/Ml Cartridge IVPUSH 11/10/24 16:43 4 mg ONCE ONE Administration Protocol Ondansetron HCl 4 mg 11/10/24 10:29 11/10/24 11:10 Ondansetron Hcl 4 Mg/2 Ml Vial IVPUSH 11/10/24 10:30 4 mg ONCE ONE Administration Ondansetron HCl 4 mg 11/10/24 13:19 11/10/24 13:27 Ondansetron Hcl 4 Mg/2 Ml Vial IVPUSH 11/10/24 13:20 4 mg ONCE ONE Administration Medical Decision Making Medical Decision Making [facility] Narrative: 1032 54-year-old male presents with left-sided flank pain, nausea, vomiting since last night. Longstanding history of stones. Denies nausea and vomiting. Physical exam left-sided CVA tenderness. History and physical exam concerning for kidney stone, unlikely pyelonephritis, dissection, ACS. No signs of acute abdomen. No signs of hemodynamic instability. Plan labs, imaging, urine. Differential Diagnosis Differential Diagnoses: The differential diagnosis associated with the presentation includes (History and physical exam concerning for kidney stone, unlikely pyelonephritis, dissection, ACS. No signs of acute abdomen. No signs of hemodynamic instability.) Admission/Observation Consideration of admission/observation: Escalation of care including admission/observation considered Lab Data [facility] Lab Attestation statement: I reviewed the patient's lab results. 11/10/24 11:17 11/10/24 13:14 Labs: Lab Results 11/10/24 11/10/24 11/10/24 Range/Units 11:17 13:14 15:51 WBC 10.8 (4.8-10.8) X10*3/uL RBC 5.36 D (4.60-5.80) X10*6/uL Hgb 16.5 D (14.0-18.0) g/dl Hct 47.8 D (42.0-52.0) % MCV 89.2 (80.0-98.0) fL MCH 30.8 (27.0-33.0) pg MCHC 34.5 (31.0-36.0) g/dl RDW 12.3 (11.0-16.0) % Plt Count 296 D (160-400) X10*3/uL MPV 9.1 L (9.4-12.4) fL Immature Gran % (Auto) 0.4 (0.0-0.4) % Neut % (Auto) 83.3 H (45-73) % Lymph % (Auto) 10.9 L (20-40) % [place] % (Auto) 4.8 (2-11) % Eos % (Auto) 0.4 (0-4) % Baso % (Auto) 0.2 (0-2) % Lymph # (Auto) 1.2 (1.2-4.9) X10*3/uL [place] # (Auto) 0.5 (0.1-1.2) X10*3/uL Eos # (Auto) 0.0 (0.0-0.4) X10*3/uL Baso # (Auto) 0.0 (0.0-0.2) X10*3/uL Abs Immat Gran (auto) 0.04 H (0.00-0.03) X10*3/uL Absolute Neuts (auto) 9.0 H (2.0-8.3) x10*3/uL Absolute Nucleated RBC 0.000 (0.0-0.012) X10*3/uL Nucleated RBC % (auto) 0.0 (0.0-0.2) /100WBC Sodium 139 (135-145) mmol/L Potassium 4.5 (3.3-5.1) mmol/L Chloride 111 H D (96-108) mmol/L Carbon Dioxide 16 L (22-29) mmol/L Anion Gap 17 (12-20) BUN 24 H (9-16) mg/dL Creatinine 0.84 (0.5-1.4) mg/dL Estim Creat Clear Calc 92.8 Estimated GFR > 60 Random Glucose 109 (60-115) mg/dL Calcium 8.6 D (8.4-10.2) mg/dL Magnesium 1.7 (1.6-2.6) mg/dL Total Bilirubin 0.9 (0.0-1.0) mg/dL AST 28 (5-37) U/L ALT 13 (0-40) U/L Alkaline Phosphatase 83 (39-117) U/L Total Protein 7.0 (6.5-8.0) g/dL Albumin 3.5 (3.5-5.0) g/dL Lipase 14 (8-78) U/L Urine Color Yellow Urine Appearance Clear Urine pH 6.0 (5.0-9.0) Ur Specific [place] 1.025 (1.005-1.025) Urine Protein 100 (2+) H (Neg-Trace) mg/dL Urine Glucose (UA) Negative (Negative) mg/dL Urine Ketones 40 (Negative) mg/dL Urine Blood Small (1+) H (Negative) Urine Nitrite Negative (Negative) Ur Leukocyte Esterase Negative (Negative) Urine RBC 0-2 (0-2) /HPF Urine WBC 0-5 (0-5) /HPF Ur Squamous Epith Cells 0-2 (0-2) /HPF Urine Bacteria None Seen (None Seen) Hyaline Casts 0-2 (0-2) /LPF Independent Interpretation I performed an independent interpretation of an: CT Scan (Findings: The lung bases are clear. The unenhanced liver, gallbladder, spleen, adrenal glands and pancreas are unremarkable. There is a 2 mm upper pole left renal calculus. No hydronephrosis bilaterally. The bladder is decompressed. No bowel obstruction or free air. No pneumatosis or portal venous ) Radiology Impression Discussion of test interpretation with radiology: I have reviewed the radiologist's reading. Critical Care Time Critical Care Time Critical Care Time: Yes Total Critical Care Time: 35 Attestation: I attest to this time spent taking care of the patient, obtaining history, physical, reviewing labs, imaging, treatment of patients condition +/- specialist/hospitalist consult Discharge Plan Discharge Clinical Impression: Left flank pain, Kidney calculi, Nausea & vomiting Patient Disposition: Home, Self-Care Instructions: Acute Nausea and Vomiting (ED) Additional Instructions: your workup in the ER today was reassuring. It did appear that you were slightly dehydrated in you were given IV fluids. Your CT scan showed a 2 mm nonobstructing kidney stone. This is likely not contributing to your pain. I recommend that you follow up with GI. Call tomorrow to schedule your appointment you may take Zofran as needed for nausea and vomiting. You may start prednisone 40 mg daily for the next 5 days Prescriptions: New prednisone 20 mg tablet 40 mg PO DAILY Qty: 10 0RF ondansetron 4 mg tablet,disintegrating 4 mg PO Q8H PRN (Reason: nausea and vomiting) Qty: 20 0RF No Action Solu-Cortef Act-O-Vial (PF) 100 mg/2 mL Recon Soln 100 mg IVPUSH Q8H Qty: 1 0RF Referrals: Katy Babb MD [Physician] - Print Language: [place]
[2024-11-10] MEDS: 0.9 % Sodium Chloride 1,000 ML 999 ML IV ×2 (11:08→11:46)
[2024-11-10] MEDS: ondansetron HCL 4 MG/2 ML VIAL IVPUSH ×2 (11:10→13:27)
[2024-11-10 11:22] LABS: Basophils Percent Auto 0.2 % (0-2); Eosinophils Percent Auto 0.4 % (0-4); Hematocrit 47.8 % (42.0-52.0); Hemoglobin 16.5 g/dl (14.0-18.0); Imm Gran Abs Auto 0.04 X10*3/uL (0.00-0.03); Imm Gran Pct Auto 0.4 % (0.0-0.4); Lymphocytes Absolute Auto 1.2 X10*3/uL (1.2-4.9); Lymphocytes Percent Auto 10.9 % (20-40); MANUAL DIFF FLAG NO; Mean Corpuscular HGB Conc 34.5 g/dl (31.0-36.0); Mean Corpuscular Hemoglobin 30.8 pg (27.0-33.0); Mean Corpuscular Volume 89.2 fL (80.0-98.0); Mean Platelet Volume 9.1 fL (9.4-12.4); Monocytes Absolute Auto 0.5 X10*3/uL (0.1-1.2); Monocytes Percent Auto 4.8 % (2-11); Neutrophils Percent Auto 83.3 % (45-73); Platelet Count 296 X10*3/uL (160-400); Red Blood Count 5.36 X10*6/uL (4.60-5.80); Red Cell Distribution Width 12.3 % (11.0-16.0); White Blood Count 10.8 X10*3/uL (4.8-10.8)
[2024-11-10] MEDS: Morphine Sulfate 4 MG/ML CARTRIDGE IVPUSH ×2 (11:44→16:56)
[2024-11-10 11:45] VITALS: BP 146/81; PULSE 89; RESP 16; TEMP 36.8; O2SAT 97
[2024-11-10 13:36] LABS: Alanine Aminotransferase 13 U/L (0-40); Albumin Level 3.5 g/dL (3.5-5.0); Alkaline Phosphatase 83 U/L (39-117); Anion Gap 17 (12-20); Aspartate Amino Transferase 28 U/L (5-37); Bilirubin Total 0.9 mg/dL (0.0-1.0); Blood Urea Nitrogen 24 mg/dL (9-16); Calcium 8.6 mg/dL (8.4-10.2); Carbon Dioxide 16 mmol/L (22-29); Chloride 111 mmol/L (96-108); Creatinine Clr Calc Pharmacy 92.8; Estimated Glomerular Filt Rate > 60; Glucose Random 109 mg/dL (60-115); Lipase 14 U/L (8-78); Magnesium 1.7 mg/dL (1.6-2.6); Potassium 4.5 mmol/L (3.3-5.1); Sodium 139 mmol/L (135-145)
--- NOTE | 2024-11-10 15:00 | PC.NURSE ---
patient appears to be resting quietly in room with even and unlabored respirations.
[2024-11-10 15:50] VITALS: BP 115/75; PULSE 94; RESP 16; TEMP 36.6; O2SAT 96
[2024-11-10 16:00] LABS: Appearance Urine Clear; Color Urine Yellow; Glucose Urine UA Negative (Negative); Leukocyte Esterase Urine Negative (Negative); Nitrite Urine Negative (Negative); Specific Gravity - Urine 1.025 (1.005-1.025); UMIC TRIGGER UACC YES; Urine Blood Small (1+) (Negative); Urine Ketones 40 mg/dL (Negative); Urine Protein 100 (2+) mg/dL (Neg-Trace)
[2024-11-10 16:38] LABS: Bacteria Urine None Seen (None Seen); Hyaline Casts Urine 0-2 /LPF (0-2); RBC Urine 0-2 /HPF (0-2); Squamous Epithelial Cell Urine 0-2 /HPF (0-2); WBC Urine 0-5 /HPF (0-5)
[2024-11-10 19:10] VITALS: BP 115/75; PULSE 94; RESP 16; TEMP 36.6; O2SAT 96
== END 2024-11-10 19:11 | disposition home or self-care (01) ==
PROVIDERS: Physician Assistant; Emergency Provider Emergency Medicine
DX: N20.0 Calculus of kidney (principal); R10.9 Unspecified abdominal pain; R11.2 Nausea with vomiting, unspecified; F17.210 Nicotine dependence, cigarettes, uncomplicated; Z79.899 Other long term (current) drug therapy
CPT/HCPCS: 36415; 74176; 80053; 81001; 81003; 83690; 83735; 85025; 96361; 96374; 96375; 96376; 99284; J2270; J2405

== ENCOUNTER → 2024-11-10 09:47 | Outpatient (BNV) | payer MEDICARE, MEDICAID, SELFPAY | PROVIDERS: Emergency Provider Emergency Medicine; Visit Provider Radiology Vascular & Interventional Radiology | DX: R10.9 Unspecified abdominal pain (principal); N20.0 Calculus of kidney | CPT/HCPCS: 74176 ==

== ENCOUNTER 2024-11-11 12:35 | Emergency (ER) | payer MEDICARE, MEDICAID, SELFPAY ==
--- NOTE | ~2024-11-11 | CT_ITS ---
EXAMINATION: CT ABDOMEN AND PELVIS WITH CONTRAST CLINICAL INFORMATION: Abdominal pain. COMPARISON: CT and pelvis 11/10/2024 TECHNIQUE: Multidetector volumetric images were obtained from the superior aspect of the liver through the pubic symphysis following administration 85 mL of Omnipaque 350 intravenous contrast. Sagittal and coronal reformatted images were obtained on the technologist's workstation. Oral contrast: No This CT examination was performed using dose optimization techniques as appropriate, variously including the following: *Automated exposure control *Adjustment of mA and/or kV according to patient size (this includes techniques or standardized protocols for targeted exams where dose is matched to indication/reason for exam; i.e. extremities or head) *Use of iterative reconstruction technique. DLP: 424 mGy/cm. FINDINGS: LUNG BASES: The visualized lung bases are unremarkable. LIVER, GALLBLADDER, AND BILIARY TREE: The liver is normal in size, shape, and attenuation. There is a focal hypodensity in the left hepatic lobe adjacent to the falciform ligament on axial image 22/3 likely focal fatty infiltration. No additional lesions seen. No intrahepatic or extrahepatic ductal dilatation. The gallbladder is unremarkable with no evidence of radiopaque gallstones, gallbladder wall thickening, or obvious pericholecystic inflammatory changes. PANCREAS: Unremarkable. SPLEEN: Unremarkable. ADRENAL GLANDS: Unremarkable. KIDNEYS AND URETERS: The kidneys are normal in size, shape, and attenuation. 2 mm nonobstructing radiopaque calculi upper pole left kidney is stable. There is a 5 mm nonenhancing cortical medullary cyst upper pole right kidney. Tiny cortical cyst seen in lower pole right kidney. There is a 2 mm radiopaque calculi right distal ureter axial image 60/3, stable to previous study. No caliectasis or hydronephrosis seen . BLADDER: Unremarkable. GASTROINTESTINAL TRACT: There is nonspecific thickening of distal descending and sigmoid colon likely from underdistention versus colitis. A redundant sigmoid colon is present and appears unremarkable. Rest of the colon and small bowel loops are normal. Appendix is not visualized. No free air or free fluid seen. ABDOMINAL WALL: No significant hernia is appreciated. LYMPH NODES: Normal. VASCULAR: Unremarkable. PELVIC VISCERA: The prostate gland is normal size. No free fluid. No abnormal pelvic lymph nodes. OSSEOUS STRUCTURES: Mild degenerative disc changes L5-S1 disc level. There is a left total hip prosthesis in satisfactory alignment. No aggressive lytic or sclerotic process seen. CT/CT abdomen pelvis w IV con IMPRESSION: Nonobstructive 2 mm radiopaque calculi upper pole left kidney. 2 mm radiopaque calculi right distal ureter, stable. No hydroureter seen. Right renal cysts. Nonspecific mural thickening distal descending and sigmoid colon question underdistention versus colitis. No pericolic stranding seen. Correlate with clinical exam. Fleischner guidelines were followed. Electronically signed by: Aly Ponce MD 11/11/2024 04:46 PM EST RP
[2024-11-11 12:50] VITALS: BP 150/84; BP 159/100; PULSE 75; RESP 18; TEMP 36.8; O2SAT 96; O2SAT 99; BMI 25.3
--- NOTE | 2024-11-11 12:53 | ED.ABDPAIN ---
HPI - Abdominal Pain General Chief Complaint: Nausea/Vomiting/Diarrhea Stated Complaint: FLANK PAIN,N/V PER EMS Time Seen by Provider: 11/11/24 12:52 Source: patient Mode of arrival: ambulatory Limitations: no limitations History of Present Illness ED Provider: Dr. Mosquera HPI narrative: 54 year old male PMH: Crohn's colitis, pancreatic duct dilation, kidney stones with continued pain Yesterday CT did not show anything acute patient had urine and labs sent as well which were all normal. Related Data Previous Rx's ?Medication ?Instructions ?Recorded hydrocortisone sod succ (PF) 100 100 mg (2 mL) IVPUSH Q8H #1 ea 11/19/ mg/2 mL solution for injection (Solu-Cortef Act-O-Vial (PF)) ondansetron 4 mg disintegrating 4 mg PO Q8H PRN nausea and 11/10/24 tablet vomiting #20 tabs prednisone 20 mg tablet 40 mg (2 x 20 mg) PO DAILY #10 tabs 11/10/24 morphine 15 mg immediate release 7.5 mg (1/2 x 15 mg) PO Q8H PRN 11/11/24 tablet pain #10 tabs Allergies Allergy/AdvReac Type Severity Reaction Status Date / Time NSAIDS (Non-Steroidal Allergy Intermediate DIARRHEA Verified 11/11/24 12:52 Anti-Inflamma [NSAIDS (NON-STEROIDAL ANTI-INFLAMMA] Review of Systems Review of Systems Review of systems: General: Patient denies any fever chills recent illness or falls Musculoskeletal: Denies back pain or body aches or other injuries HEENT: denies headache, runny nose, ear pain Respiratory: denies shortness of breath, cough Cardiovascular: no chest pain or palpitations : denies dysuria, frequency Abdomen: nausea vomiting denies abdominal pain He is complaining of flank pain Extremities: no swelling, no pain Skin: no diaphoresis Yes all other systems are reviewed and are negative PMFSH Past Medical History Medical History Crohn's disease Fever Social History Social History Household Members: Significant Other Housing: Apartment Do you presently have visiting nurse or other home services: No Alcohol intake: former Patient Tobacco Use Status: Current everyday Tobacco user Tobacco use type: Cigarette Cigarette Packs Per Day: 0.5 Cigarettes Per Day: 10.0 Smoked in Last 30 Days: No e-Cigarette/Vaping Use: Currently Using Use of substances other than those prescribed or required for medical reasons: No Advance Directives: No Advance Directives Information Provided: No Do you have a plan to hurt others: No Plan service: No Current occupational status: disabled Physical Exam ED Vital Signs: Vital Signs - 24 hr 11/11/24 12:50 11/11/24 14:28 Temperature 98.3 F 98.6 F Pulse Rate 75 69 Respiratory Rate 18 18 Blood Pressure 150/84 H 136/73 Pulse Oximetry 96 98 Oxygen Delivery Method Room Air Room Air BMI result Body Mass Index 25.3 General: Well-appearing well-nourished in no signs of distress HEENT: Normocephalic atraumatic Neck: No signs of JVD, no masses no tenderness or lymphadenopathy Cardiovascular: Regular rate and rhythm Respiratory: Clear to auscultation bilaterally Abdomen: Soft nontender no masses no CVA tenderness Extremities: Normal pedal pulses no signs of edema Skin: Dry warm no rashes Back: No tenderness full ROM Course Reevaluation(s) Reevaluation #1: patient was ordered IV Tylenol Toradol Haldol and Benadryl which he refused everything he states he only wants Zofran when I explained with the medications 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 I did explain this will help with his pain he states he does not want anything that will not come out and is demanding Zofran IV only. Zofran was ordered. Reevaluation #2: The patient states his nausea was initially controlled but after getting the contrast for the CT states his pain is worse and he is requesting something else I explained how would like to give him some Haldol at this time he is okay with getting with Benadryl and I will reassess the patient. Time: 16:14 Reevaluation #3: the patient is feeling much better CT shows a small stone possible colitis patient looks otherwise well labs were okay I do feel comfortable discharging the patient home he does have Zofran at home I will send the patient home wit Time: 17:20 Medical Decision Making Medical Decision Making MDM Narrative: with a negative CT scan yesterday I will treat his pain and nausea and vomiting with Haldol Benadryl Toradol Tylenol send off labs and a urine I will hold off on CT scan Differential Diagnosis Differential Diagnoses: The differential diagnosis associated with the presentation includes patient appears like a cannabis hyperemesis patient with loud retching differential includes kidney stone urinary tract infection dehydration electrolyte abnormality Admission/Observation Consideration of admission/observation: Escalation of care including admission/observation considered Lab Data MDM Lab Attestation statement: I reviewed the patient's lab results. 11/11/24 13:12 11/11/24 13:12 Labs: Lab Results 11/11/24 11/11/24 Range/Units 13:06 13:12 WBC 6.9 (4.8-10.8) X10*3/uL RBC 5.10 (4.60-5.80) X10*6/uL Hgb 16.0 (14.0-18.0) g/dl Hct 45.4 (42.0-52.0) % MCV 89.0 (80.0-98.0) fL MCH 31.4 (27.0-33.0) pg MCHC 35.2 (31.0-36.0) g/dl RDW 12.0 (11.0-16.0) % Plt Count 275 (160-400) X10*3/uL MPV 9.2 L (9.4-12.4) fL Immature Gran % (Auto) 0.3 (0.0-0.4) % Neut % (Auto) 62.5 (45-73) % Lymph % (Auto) 27.7 (20-40) % [place] % (Auto) 8.3 (2-11) % Eos % (Auto) 0.6 (0-4) % Baso % (Auto) 0.6 (0-2) % Lymph # (Auto) 1.9 (1.2-4.9) X10*3/uL [place] # (Auto) 0.6 (0.1-1.2) X10*3/uL Eos # (Auto) 0.0 (0.0-0.4) X10*3/uL Baso # (Auto) 0.0 (0.0-0.2) X10*3/uL Abs Immat Gran (auto) 0.02 (0.00-0.03) X10*3/uL Absolute Neuts (auto) 4.3 (2.0-8.3) x10*3/uL Absolute Nucleated RBC 0.000 (0.0-0.012) X10*3/uL Nucleated RBC % (auto) 0.0 (0.0-0.2) /100WBC Sodium 140 (135-145) mmol/L Potassium 4.1 (3.3-5.1) mmol/L Chloride 106 (96-108) mmol/L Carbon Dioxide 20 L (22-29) mmol/L Anion Gap 18 (12-20) BUN 15 (9-16) mg/dL Creatinine 0.89 (0.5-1.4) mg/dL Estim Creat Clear Calc 87.6 Estimated GFR > 60 Random Glucose 106 (60-115) mg/dL Calcium 9.6 D (8.4-10.2) mg/dL Magnesium 1.9 (1.6-2.6) mg/dL Total Bilirubin 1.0 (0.0-1.0) mg/dL Direct Bilirubin 0.2 (0.0-0.5) mg/dL AST 53 H (5-37) U/L ALT 20 (0-40) U/L Alkaline Phosphatase 86 (39-117) U/L Total Protein 7.9 (6.5-8.0) g/dL Albumin 3.9 (3.5-5.0) g/dL Lipase 33 (8-78) U/L Urine Color Yellow Urine Appearance Clear Urine pH 6.0 (5.0-9.0) Ur Specific [place] 1.020 (1.005-1.025) Urine Protein 300 (3+) H (Neg-Trace) mg/dL Urine Glucose (UA) Negative (Negative) mg/dL Urine Ketones Negative (Negative) mg/dL Urine Blood Moderate (2+) H (Negative) Urine Nitrite Negative (Negative) Ur Leukocyte Esterase Negative (Negative) Urine RBC 6-10 H (0-2) /HPF Urine WBC 0-5 (0-5) /HPF Ur Squamous Epith Cells 0-2 (0-2) /HPF Urine Bacteria None Seen (None Seen) Hyaline Casts 0-2 (0-2) /LPF Independent Interpretation I performed an independent interpretation of an: CT Scan Radiology Impression Discussion of test interpretation with radiology: I have reviewed the radiologist's reading. External Record Review External record reviewed: Inpatient record, Office record and Outpatient record Prescription Management I considered prescription management with: Pain Medication Chronic Conditions Patient?s care impacted by: Hypertension Core Measures AMI core measures followed: Yes Medications Administered Discontinued Medications Generic Name Dose Route Start Last Admin Trade Name Freq PRN Reason Stop Dose Admin Diphenhydramine HCl 25 mg 11/11/24 12:55 11/11/24 13:18 Diphenhydramine Hcl 50 Mg/Ml Vial IVPUSH 11/11/24 12:56 Not Given ONCE ONE Diphenhydramine HCl 25 mg 11/11/24 16:13 11/11/24 16:25 Diphenhydramine Hcl 50 Mg/Ml Vial IVPUSH 11/11/24 16:14 25 mg ONCE ONE Administration Haloperidol Lactate 5 mg 11/11/24 12:55 11/11/24 13:18 Haloperidol Lactate 5 Mg/Ml Vial IVPUSH 11/11/24 12:56 Not Given ONCE ONE Haloperidol Lactate 5 mg 11/11/24 16:13 11/11/24 16:25 Haloperidol Lactate 5 Mg/Ml Vial IVPUSH 11/11/24 16:14 5 mg ONCE ONE Administration Sodium Chloride 1,000 mls @ 999 mls/hr 11/11/24 13:00 11/11/24 14:20 Ns IV 11/11/24 14:00 Infused .Q1H1M FRANK Infusion Acetaminophen 1,000 mg in 100 mls @ 400 mls/hr 11/11/24 12:55 11/11/24 13:18 Ofirmev IV 11/11/24 13:09 Not Given ONCE ONE Sodium Chloride 1,000 mls @ 999 mls/hr 11/11/24 16:15 11/11/24 16:24 Ns IV 11/11/24 17:15 999 mls/hr .Q1H1M FRANK Administration Iohexol 100 ml 11/11/24 15:00 11/11/24 15:01 Iohexol 350 Mg/Ml 100 Ml Infus..Btl IV 11/11/24 15:01 85 ml ONCE ONE Administration Ketorolac Tromethamine 15 mg 11/11/24 12:55 11/11/24 13:18 Ketorolac Tromethamine 15 Mg/Ml Vial IVPUSH 11/11/24 12:56 Not Given ONCE ONE Ondansetron HCl 4 mg 11/11/24 13:16 11/11/24 13:18 Ondansetron Hcl 4 Mg/2 Ml Vial IVPUSH 11/11/24 13:17 4 mg ONCE ONE Administration Discharge Plan Discharge Clinical Impression: Kidney stone on right side, Vomiting, Acute dehydration Patient Disposition: Home, Self-Care Instructions: Dehydration (ED), Kidney Stones (ED), Acute Nausea and Vomiting (ED) Additional Instructions: you were seen today for abdominal pain flank pain found to have a small kidney stone. You had CT and labs done as well as urine checked. You were treated with antinausea medications with improvement of symptoms I will send him home with morphine which she can take to help you sleep at night otherwise I recommend the prednisone and Tylenol. If you have any other concerns please return to the ER Prescriptions: New morphine 15 mg tablet 7.5 mg PO Q8H PRN (Reason: pain) Qty: 10 0RF Rx Instructions: Partial Fill upon patient request. No Action Solu-Cortef Act-O-Vial (PF) 100 mg/2 mL Recon Soln 100 mg IVPUSH Q8H Qty: 1 0RF prednisone 20 mg tablet 40 mg PO DAILY Qty: 10 0RF ondansetron 4 mg tablet,disintegrating 4 mg PO Q8H PRN (Reason: nausea and vomiting) Qty: 20 0RF Print Language: Tamazight
[2024-11-11 13:12] LABS: Appearance Urine Clear; Color Urine Yellow; Glucose Urine UA Negative (Negative); Leukocyte Esterase Urine Negative (Negative); Nitrite Urine Negative (Negative); UMIC TRIGGER UACC YES; Urine Blood Moderate (2+) (Negative); Urine Ketones Negative (Negative); Urine Protein 300 (3+) mg/dL (Neg-Trace)
[2024-11-11 13:16] LABS: MANUAL DIFF FLAG NO
[2024-11-11] MEDS: ondansetron HCL 4 MG/2 ML VIAL IVPUSH (13:18)
[2024-11-11 13:19] LABS: Basophils Percent Auto 0.6 % (0-2); Eosinophils Percent Auto 0.6 % (0-4); Hematocrit 45.4 % (42.0-52.0); Imm Gran Abs Auto 0.02 X10*3/uL (0.00-0.03); Imm Gran Pct Auto 0.3 % (0.0-0.4); Lymphocytes Absolute Auto 1.9 X10*3/uL (1.2-4.9); Lymphocytes Percent Auto 27.7 % (20-40); Mean Corpuscular HGB Conc 35.2 g/dl (31.0-36.0); Mean Corpuscular Hemoglobin 31.4 pg (27.0-33.0); Mean Platelet Volume 9.2 fL (9.4-12.4); Monocytes Absolute Auto 0.6 X10*3/uL (0.1-1.2); Monocytes Percent Auto 8.3 % (2-11); Neutrophils Absolute Auto 4.3 x10*3/uL (2.0-8.3); Neutrophils Percent Auto 62.5 % (45-73); Platelet Count 275 X10*3/uL (160-400); White Blood Count 6.9 X10*3/uL (4.8-10.8)
[2024-11-11 13:19] LABS: Bacteria Urine None Seen (None Seen); Hyaline Casts Urine 0-2 /LPF (0-2); Squamous Epithelial Cell Urine 0-2 /HPF (0-2); WBC Urine 0-5 /HPF (0-5)
[2024-11-11] MEDS: 0.9 % Sodium Chloride 1,000 ML 999 ML IV ×2 (13:19→16:24)
[2024-11-11 13:33] LABS: Alanine Aminotransferase 20 U/L (0-40); Albumin Level 3.9 g/dL (3.5-5.0); Alkaline Phosphatase 86 U/L (39-117); Aspartate Amino Transferase 53 U/L (5-37); Bilirubin Direct 0.2 mg/dL (0.0-0.5); Lipase 33 U/L (8-78); Magnesium 1.9 mg/dL (1.6-2.6); Total Protein 7.9 g/dL (6.5-8.0)
[2024-11-11 14:28] VITALS: BP 136/73; PULSE 69; RESP 18; TEMP 37; O2SAT 98
[2024-11-11] MEDS: iohexoL 350 MG/ML 100 ML INFUS..BTL IV (15:01)
--- OUTSIDE RECORDS SUMMARY | 2024-11-11 15:53 | XMS_ITS | Patient Health Record ---
Author Organization [facility] Address [address] [place] [address] Care Team Providers Care Bedspread Folder Name Role Phone SHAWN CÁRDENAS Primary Care Provider Unavaila Esteban Cohen Jr Unavailable [phone] REASON FOR REFERRAL No Information SOCIAL HISTORY Sex Assigned At : Social History Observation Description Sex Assigned At Unknown PROBLEMS Problem Type ICD Code Onset Dates Problem Status W/U Status Risk SNOMED Code Notes Problem Crohn's disease of both small and large intestine with rectal bleeding (K50.811) Active confirmed Crohn's disease of small AND large intestines (23721158) PLAN OF TREATMENT No Information Insurance Providers Payer Name Payer Address Payer Phone Subscriber Number Group Number Insured Name Patient Relationship to Insured Coverage Start Date Coverage End Date MEDICARE OF [place] [address] [place] [id number] [phone] [id number] MABLEANAY Self - patient is the insured MEDICAID OF [facility] [address] [place] [address] [id number] MABLE ANAY Self - patient is the insured
--- OUTSIDE RECORDS SUMMARY | 2024-11-11 15:53 | XMS_ITS | Clinical Summary ---
Author Organization [facility] Address [address] [place] [address] Care Team Providers Care Inventory Analyst Name Role Phone Pcp, No Primary Care Provider Unavailabl e Allergies No known active allergies Medications Medication Sig Dispensed Refills Start Date End Date Status PANTOprazole (PROTONIX) 40 MG EC tabletIndications:Lower GI bleed Take 1 tablet (40 mg total) by mouth every morning before breakfast. 90 tablet 11/29/2021 Active oxyCODONE (ROXICODONE) 5 MG immediate release tabletIndications:Crohn 's disease with complication, unspecified gastrointestinal tract location (HCC) Take 1 tablet (5 mg total) by mouth 4 times daily (every 6 hours) as needed for severe pain. Max Daily Amount: 20 mg 15 tablet 11/29/2021 Active acetaminophen (TYLENOL) 325 MG tabletIndications:Crohn 's disease with complication, unspecified gastrointestinal tract location (HCC) Take 2 tablets (650 mg total) by mouth every 8 (eight) hours around the clock. 180 tablet 11/29/2021 Active simethicone (MYLICON) 80 MG chewable tabletIndications:Crohn 's disease with complication, unspecified gastrointestinal tract location (HCC) Chew 1 tablet (80 mg total) 4 (four) times a day after meals and nightly. 120 tablet 11/29/2021 Active predniSONE (DELTASONE) 20 MG tabletIndications:Crohn 's disease with complication, unspecified gastrointestinal tract location (HCC) Take 1 tablet (20 mg total) by mouth every morning with breakfast. With food. Do not start before December 14, 2021. 42 tablet 12/14/2021 Active senna (SENOKOT) 8.6 MG Tab tabletIndications:Crohn 's disease with complication, unspecified gastrointestinal tract location (HCC) Take 2 tablets by mouth nightly. 60 tablet 11/29/2021 Active Active Problems Problem Noted Date Diagnosed Date Moderate malnutrition (HCC): moderate muscle wasting, moderate fat loss, weight loss greater than 5% in 1 mo and po intake meeting less than 75% of needs in past month 11/20/2021 Lower GI bleed 11/19/2021 Crohn's disease with complication 11/19/2021 Overview (11/22/2021): Added automatically from request for surgery [id number] Social History Tobacco Use Types Packs/Day Years Used Date Smoking Tobacco: Every Day Smokeless Tobacco: Never Sex and Gender Information Value Date Recorded Sex Assigned at Not on file Gender Identity Not on file Sexual Orientation Not on file Last Filed Vital Signs Vital Sign Reading Time Taken Comments Blood Pressure 134/80 11/29/2021 8:00 AM EDT Pulse 73 11/29/2021 8:00 AM EDT Temperature 36.7 ??C (98 ??F) 11/29/2021 8:00 AM EDT Respiratory Rate 20 11/29/2021 8:00 AM EDT Oxygen Saturation 100% 11/29/2021 8:00 AM EDT Inhaled Oxygen Concentration - - Weight 55.7 kg (122 lb 12.7 oz) 11/29/2021 6:00 AM EDT Height 171.5 cm (5' 7.5 ) 11/19/2021 11 :00 PM EST Body Mass Index 18.95 11/19/2021 11:00 PM EST Plan of Treatment Health Maintenance Due Date Last Done Comments Hepatitis C Virus Screening 1969 HIV Screening 1982 DTaP/Tdap/Td Vaccines (1 - Tdap) 1988 Hepatitis B Vaccines (1 of 3 - 19+ 3-dose series) 12/1987 Pneumococcal Vaccines 50+ (1 of 1 - PCV) 2019 Zoster (Shingles) Vaccine (1 of 2) 2019 Influenza Vaccine 04/11/2024 COVID-19 Vaccine (1 - 2023-25 season) 2024 Colonoscopy 11/24/2031 11/23/2021 Advance Directives * Full Code (Latest Code Status on File) Date Activated Date Inactivated Comments 11/19/2021 10:39 PM Question Answer Comments Decision Thoroughly Discussed with: Patient Care Teams Inventory Analyst Relationship Specialty Start Date End Date Pcp, No PCP - General General Medicine 11/19/21
[2024-11-11] MEDS: Haloperidol Lactate 5 MG/ML VIAL IVPUSH (16:25)
[2024-11-11] MEDS: diphenhydrAMINE HCL 50 MG/ML VIAL 25 MG IVPUSH (16:25)
--- NOTE | 2024-11-11 16:29 | PC.NURSE ---
pt verbalizing increase in nausea despite previous medication administration. additional IVF/medication administered per provider order. effectiveness pending.
[2024-11-11 16:40] LABS: Anion Gap 18 (12-20); Blood Urea Nitrogen 15 mg/dL (9-16); Calcium 9.6 mg/dL (8.4-10.2); Carbon Dioxide 20 mmol/L (22-29); Chloride 106 mmol/L (96-108); Creatinine Clr Calc Pharmacy 87.6; Estimated Glomerular Filt Rate > 60; Glucose Random 106 mg/dL (60-115); Potassium 4.1 mmol/L (3.3-5.1); Sodium 140 mmol/L (135-145)
[2024-11-11 17:38] VITALS: BP 148/83; PULSE 67; RESP 16; TEMP 37.3; O2SAT 98
[2024-11-11 17:39] VITALS: BP 148/83; PULSE 67; RESP 16; TEMP 37.3; O2SAT 98
[2024-11-11 17:51] VITALS: BP 148/83; PULSE 67; RESP 16; TEMP 37.3; O2SAT 98
== END 2024-11-11 17:53 | disposition home or self-care (01) ==
PROVIDERS: Emergency Provider Student in an Organized Health Care Education/Training Program
DX: N20.0 Calculus of kidney (principal); E86.0 Dehydration; K50.90 Crohn's disease, unspecified, without complications
CPT/HCPCS: 36415; 74177; 80048; 80076; 81001; 83690; 83735; 85025; 96361; 96374; 96375; 99284; J1200; J1630; J2405; Q9967

== ENCOUNTER → 2024-11-11 13:15 | Outpatient (BNV) | payer MEDICARE, MEDICAID, SELFPAY | PROVIDERS: Emergency Provider Student in an Organized Health Care Education/Training Program; Visit Provider Radiology Diagnostic Radiology | DX: R10.9 Unspecified abdominal pain (principal); N28.1 Cyst of kidney, acquired; N20.1 Calculus of ureter | CPT/HCPCS: 74177 ==